=== PATIENT | male | born 1975 | race Caucasian/White ===

== ENCOUNTER 2020-04-15 10:46 | Emergency (ER) | payer OTHER, SELFPAY ==
[2020-04-15 10:58] VITALS: BP 140/82; PULSE 112; RESP 17; TEMP 36.6; O2SAT 98; BMI 36.2
--- NOTE | 2020-04-15 11:04 | ECG_ITS ---
Test Reason : SYNCOPE Blood Pressure : / mmHG Vent. Rate : 108 BPM Atrial Rate : 108 BPM P-R Int : 112 ms QRS Dur : 116 ms QT Int : 358 ms P-R-T Axes : 038 027 021 degrees QTc Int : 479 ms Sinus tachycardia Right bundle branch block Abnormal ECG When compared with ECG of 26-JAN-2019 09:38, No significant change was found Referred By: Liz Chavez Electronically Signed By:ALEX COOPER MD
--- NOTE | 2020-04-15 11:04 | CT_ITS ---
EXAMINATION: CT HEAD WITHOUT CONTRAST CLINICAL INFORMATION: Syncope. COMPARISON: None TECHNIQUE: Contiguous axial imaging was performed from the skull base to vertex without intravenous administration of contrast. This CT examination was performed using dose optimization techniques as appropriate, variously including the following: *Automated exposure control *Adjustment of mA and/or kV according to patient size (this includes techniques or standardized protocols for targeted exams where dose is matched to indication/reason for exam; i.e. extremities or head) *Use of iterative reconstruction technique DLP: 804 mGy-cm FINDINGS: There is no evidence of acute intracranial hemorrhage or territorial infarction. No abnormal mass effect or midline shift is seen. Cruz to white matter differentiation is well preserved. No extra-axial fluid collections are identified. The ventricles are normal in size. There is no abnormal attenuation within the brain parenchyma. The osseous structures and soft tissues are normal. There is minimal mucoperiosteal thickening right middle ethmoid sinus. Rest of paranasal sinuses and mastoid air cells are well aerated. CT/CT head/brain wo con IMPRESSION: No acute intracranial process seen. Minimal mucoperiosteal thickening right middle ethmoid sinus.
[2020-04-15 11:11] LABS: Glucose, Whole Blood 537 mg/dL (60-115)
--- NOTE | 2020-04-15 11:16 | ED.SYNCOPE ---
HPI - Syncope General Chief Complaint: Syncope Stated Complaint: back pain,fell,high sugar Time Seen by Provider: 04/15/20 11:04 Source: patient Mode of arrival: ambulatory Limitations: no limitations History of Present Illness HPI narrative: 44 y/o male with history of poorly controlled DM on insulin, SD, asthma, HTN, hemorrhoids, GERD, GI bleed who is presenting with a syncopal episode that happened this morning. He reports he was home alone when he went to get up and go from his living room to the kitchen to get his medications, he passed out. He was dizzy before. Unwitnessed and not sure if he hit his head. He reports when he woke up he took his medications and took a hot shower. He checked his sugar and it was >500. He reports not eating anything today. He admits to nausea but no vomiting. No chest pain or SOB. No headache. He reports LBP for the last 3 days after shoveling snow. MD complaint: loss of consciousness Onset (ago): hour(s) (2) Prodromal symptoms: lightheaded Witnessed: No Injuries sustained associated with event: none Current symptoms: back to baseline Treatments prior to arrival: none Related Data Previous Rx's Medication Instructions Recorded cyclobenzaprine 10 mg PO TID PRN #8 tab 04/15/20 lidocaine [Lidoderm] 1 patch TOPICAL DAILY #15 ea 04/15/20 Allergies Allergy/AdvReac Type Severity Reaction Status Date / Time morphine [MORPHINE] Allergy Unknown CHEST PAIN Unverified 01/11/20 16:57 Review of Systems Review of Systems: Constitutional: No Fever, No Chills ENT/Mouth: No sore throat, No Rhinorrhea, No Swallowing Difficulty Eyes: No Eye Pain, No Swelling, No Redness Cardiovascular: No Chest Pain, No SOB, No Orthopnea, No Edema Respiratory: No Cough, No Sputum, No Wheezing, No dyspnea Gastrointestinal: + Nausea, No Vomiting, No Diarrhea, No abdominal Pain Genitourinary: No Dysuria, No Urinary Frequency, No Hematuria Musculoskeletal: No joint pain, + Myalgias (low back) Skin: No Skin Lesions, No rash Neuro: No Weakness, No Numbness, + Dizziness, No Headache Psych: No Anxiety/Panic, No Depression Heme/Lymph: No Bruising, No Lymphadenopathy Endocrine: No Polyuria, No Polydipsia PMFSH Past Medical History Attestation statement: The following information was validated with the patient. Medical History HTN (hypertension) IDDM (insulin dependent diabetes mellitus) Social History Social History Alcohol intake: current Alcohol intake frequency: holidays/special occasions only Smoking Status: Current some day smoker Smoked in Last 30 Days: Yes Use of substances other than those prescribed or required for medical reasons: No Advance Directives: No Advance Directives Information Provided: No Physical Exam Vital Signs: Vital Signs: Last Vital Signs Temp 98 F 04/15/20 10:58 Pulse 77 04/15/20 13:55 Resp 16 04/15/20 12:00 BP 111/46 L 04/15/20 13:55 Pulse Ox 96 04/15/20 12:00 Body Mass Index 36.2 Appearance: Alert. Oriented X3. No acute distress. Head: atraumatic Eyes: Pupils equal, round and reactive to light. ENT: Pharynx normal. Neck: Normal inspection. Neck supple. CVS: Normal heart rate and rhythm. Pulses normal. Respiratory: No respiratory distress. Breath sounds normal. Abdomen: Obese, Soft and nontender. +BS x4 Back: mid lumbar soft tissue tenderness, no spinal tenderness, slow to move out of bed. Skin: Skin warm and dry. Normal skin color. Normal skin turgor. No rashes. Extremities: No lower extremity edema. Negative Jo's sign Neuro: Oriented X 3. No motor deficit. No sensory deficit. Course Course Course Narrative: 44 y/o male with poorly controlled DM presenting with hyperglycemia and syncopal event this morning. Now back to baseline and reports only complaint is sore back from shoveling. Exam consistent with muscular pain. Need to r/o DKA. IVF ordered and full lab workup. Etiology of hyperglycemia likely diet related but will f/u occult infection. Reevaluation(s) Reevaluation #1: No signs of infection. Utox +cocaine. A1c 12.3% with average glucose 306. Orthostatics negative. Results d/w patient. Continues to report LBP and is asking for something stronger for pain. His daughter will pick him up. Will give dose of Toradol and Flexeril now. Repeat glucose pending. Reevaluation #2: Repeat glucose after 2L IVF improved to 260. He is stable for d/c. Will refer to Endocrinology. Patient agrees to follow up. MDM - Syncope Differential Diagnosis Differential diagnosis: Likely syncope due to orthostatic hypotension, vasovagal syncope, complete atrioventricular block and dehydration Lab Data Result diagrams: 04/15/20 11:50 04/15/20 11:50 Labs: Lab Results 04/15/20 04/15/20 04/15/20 Range/Units 11:08 11:50 11:50 WBC 9.9 (4.8-10.8) X10*3/uL RBC 6.20 H (4.60-5.80) X10*6/uL Hgb 15.7 (14.0-18.0) g/dl Hct 47.9 (42-52) % MCV 77.3 L (80-98) fL MCH 25.3 L (27.0-33.0) pg MCHC 32.8 (31.0-36.0) g/dl RDW 13.5 (11.0-16.0) % Plt Count 283 (160-400) X10*3/uL MPV 11.9 (9.4-12.4) fL Immature Gran % (Auto) 0.5 H (0.0-0.4) % Neut % (Auto) 68.8 (45-73) % Lymph % (Auto) 20.8 (20-40) % [place] % (Auto) 6.4 (2-11) % Eos % (Auto) 3.1 (0-4) % Baso % (Auto) 0.4 (0-2) % Lymph # (Auto) 2.1 (1.2-4.9) X10*3/uL [place] # (Auto) 0.6 (0.1-1.2) X10*3/uL Eos # (Auto) 0.3 (0.0-0.4) X10*3/uL Baso # (Auto) 0.0 (0.0-0.2) X10*3/uL Abs Immat Gran (auto) 0.05 H (0.00-0.03) X10*3/uL Absolute Neuts (auto) 6.8 (2.0-8.3) X10*3/uL Absolute Nucleated RBC 0.000 (0.0-0.012) X10*3/uL Nucleated RBC % (auto) 0.0 (0.0-0.2) /100WBC Hold Blue Top VBG pH (7.32-7.43) VBG pCO2 mmhg VBG pO2 mmhg VBG HCO3 mmol/L VBG O2 Saturation % VBG Base Excess mmol/L Sodium 128 L (135-145) mmol/L Potassium 4.7 (3.3-5.1) mmol/l Chloride 98 (96-108) mmol/L Carbon Dioxide 21 L (22-29) mmol/L Anion Gap 14 (12-20) BUN 16 (9-16) mg/dL Creatinine 1.19 (0.5-1.4) mg/dL Estim Creat Clear Calc 101.3 Estimated GFR > 60 POC Glucose 537 H* (60-115) mg/dL Random Glucose 467 H* (60-115) mg/dL Estimat Average Glucose mg/dL Hemoglobin A1c % % Lactic Acid (0.5-2.0) mmol/L Calcium 9.1 (8.4-10.2) mg/dL Magnesium (1.6-2.6) mg/dL Total Bilirubin 0.2 (0.0-1.0) mg/dL Direct Bilirubin < 0.2 (0.0-0.5) mg/dL AST 31 (5-37) U/L ALT 70 H (0-40) U/L Alkaline Phosphatase 77 (39-117) U/L Troponin I High Sens (<3.5-35.0) ng/L Total Protein 7.3 (6.5-8.0) g/dL Albumin 4.0 (3.5-5.0) g/dL Lipase (8-78) U/L Urine Color Urine Appearance Urine pH (5.0-8.0) Ur Specific [place] (1.005-1.025) Urine Protein (NEG-TRACE) MG/DL Urine Glucose (UA) (NEG) MG/DL Urine Ketones (NEG) MG/DL Urine Blood (NEG) Urine Nitrite (NEG) Ur Leukocyte Esterase (NEG) Urine RBC (0) /HPF Urine WBC (0-4) /HPF Ur Squamous Epith Cells /LPF Urine Bacteria /LPF Urine Opiates Screen (Not Detect) Ur Barbiturates Screen (Not Detect) Ur Phencyclidine Scrn (Not Detect) Ur Amphetamines Screen (Not Detect) U Benzodiazepines Scrn (Not Detect) Urine Cocaine Screen (Not Detect) U Marijuana (THC) Screen (Not Detect) Ethyl Alcohol mg/dL Acetone, Qual Negative (Negative) COVID-19 ([facility]) (Negative) COVID-19 Clin Com 04/15/20 04/15/20 04/15/20 Range/Units 11:50 11:50 11:50 WBC (4.8-10.8) X10*3/uL RBC (4.60-5.80) X10*6/uL Hgb (14.0-18.0) g/dl Hct (42-52) % MCV (80-98) fL MCH (27.0-33.0) pg MCHC (31.0-36.0) g/dl RDW (11.0-16.0) % Plt Count (160-400) X10*3/uL MPV (9.4-12.4) fL Immature Gran % (Auto) (0.0-0.4) % Neut % (Auto) (45-73) % Lymph % (Auto) (20-40) % [place] % (Auto) (2-11) % Eos % (Auto) (0-4) % Baso % (Auto) (0-2) % Lymph # (Auto) (1.2-4.9) X10*3/uL [place] # (Auto) (0.1-1.2) X10*3/uL Eos # (Auto) (0.0-0.4) X10*3/uL Baso # (Auto) (0.0-0.2) X10*3/uL Abs Immat Gran (auto) (0.00-0.03) X10*3/uL Absolute Neuts (auto) (2.0-8.3) X10*3/uL Absolute Nucleated RBC (0.0-0.012) X10*3/uL Nucleated RBC % (auto) (0.0-0.2) /100WBC Hold Blue Top SEE NOTE VBG pH (7.32-7.43) VBG pCO2 mmhg VBG pO2 mmhg VBG HCO3 mmol/L VBG O2 Saturation % VBG Base Excess mmol/L Sodium (135-145) mmol/L Potassium (3.3-5.1) mmol/l Chloride (96-108) mmol/L Carbon Dioxide (22-29) mmol/L Anion Gap (12-20) BUN (9-16) mg/dL Creatinine (0.5-1.4) mg/dL Estim Creat Clear Calc Estimated GFR POC Glucose (60-115) mg/dL Random Glucose (60-115) mg/dL Estimat Average Glucose mg/dL Hemoglobin A1c % % Lactic Acid (0.5-2.0) mmol/L Calcium (8.4-10.2) mg/dL Magnesium (1.6-2.6) mg/dL Total Bilirubin (0.0-1.0) mg/dL Direct Bilirubin (0.0-0.5) mg/dL AST (5-37) U/L ALT (0-40) U/L Alkaline Phosphatase (39-117) U/L Troponin I High Sens < 3.5 (<3.5-35.0) ng/L Total Protein (6.5-8.0) g/dL Albumin (3.5-5.0) g/dL Lipase (8-78) U/L Urine Color Urine Appearance Urine pH (5.0-8.0) Ur Specific [place] (1.005-1.025) Urine Protein (NEG-TRACE) MG/DL Urine Glucose (UA) (NEG) MG/DL Urine Ketones (NEG) MG/DL Urine Blood (NEG) Urine Nitrite (NEG) Ur Leukocyte Esterase (NEG) Urine RBC (0) /HPF Urine WBC (0-4) /HPF Ur Squamous Epith Cells /LPF Urine Bacteria /LPF Urine Opiates Screen (Not Detect) Ur Barbiturates Screen (Not Detect) Ur Phencyclidine Scrn (Not Detect) Ur Amphetamines Screen (Not Detect) U Benzodiazepines Scrn (Not Detect) Urine Cocaine Screen (Not Detect) U Marijuana (THC) Screen (Not Detect) Ethyl Alcohol < 10 mg/dL Acetone, Qual (Negative) COVID-19 ([facility]) (Negative) COVID-19 Clin Com 04/15/20 04/15/20 04/15/20 Range/Units 11:50 11:51 11:51 WBC (4.8-10.8) X10*3/uL RBC (4.60-5.80) X10*6/uL Hgb (14.0-18.0) g/dl Hct (42-52) % MCV (80-98) fL MCH (27.0-33.0) pg MCHC (31.0-36.0) g/dl RDW (11.0-16.0) % Plt Count (160-400) X10*3/uL MPV (9.4-12.4) fL Immature Gran % (Auto) (0.0-0.4) % Neut % (Auto) (45-73) % Lymph % (Auto) (20-40) % [place] % (Auto) (2-11) % Eos % (Auto) (0-4) % Baso % (Auto) (0-2) % Lymph # (Auto) (1.2-4.9) X10*3/uL [place] # (Auto) (0.1-1.2) X10*3/uL Eos # (Auto) (0.0-0.4) X10*3/uL Baso # (Auto) (0.0-0.2) X10*3/uL Abs Immat Gran (auto) (0.00-0.03) X10*3/uL Absolute Neuts (auto) (2.0-8.3) X10*3/uL Absolute Nucleated RBC (0.0-0.012) X10*3/uL Nucleated RBC % (auto) (0.0-0.2) /100WBC Hold Blue Top VBG pH 7.41 (7.32-7.43) VBG pCO2 30 mmhg VBG pO2 97 mmhg VBG HCO3 19 mmol/L VBG O2 Saturation 97.8 % VBG Base Excess -4.6 mmol/L Sodium (135-145) mmol/L Potassium (3.3-5.1) mmol/l Chloride (96-108) mmol/L Carbon Dioxide (22-29) mmol/L Anion Gap (12-20) BUN (9-16) mg/dL Creatinine (0.5-1.4) mg/dL Estim Creat Clear Calc Estimated GFR POC Glucose (60-115) mg/dL Random Glucose (60-115) mg/dL Estimat Average Glucose 306 mg/dL Hemoglobin A1c % 12.3 % Lactic Acid 1.8 (0.5-2.0) mmol/L Calcium (8.4-10.2) mg/dL Magnesium (1.6-2.6) mg/dL Total Bilirubin (0.0-1.0) mg/dL Direct Bilirubin (0.0-0.5) mg/dL AST (5-37) U/L ALT (0-40) U/L Alkaline Phosphatase (39-117) U/L Troponin I High Sens (<3.5-35.0) ng/L Total Protein (6.5-8.0) g/dL Albumin (3.5-5.0) g/dL Lipase (8-78) U/L Urine Color Urine Appearance Urine pH (5.0-8.0) Ur Specific [place] (1.005-1.025) Urine Protein (NEG-TRACE) MG/DL Urine Glucose (UA) (NEG) MG/DL Urine Ketones (NEG) MG/DL Urine Blood (NEG) Urine Nitrite (NEG) Ur Leukocyte Esterase (NEG) Urine RBC (0) /HPF Urine WBC (0-4) /HPF Ur Squamous Epith Cells /LPF Urine Bacteria /LPF Urine Opiates Screen (Not Detect) Ur Barbiturates Screen (Not Detect) Ur Phencyclidine Scrn (Not Detect) Ur Amphetamines Screen (Not Detect) U Benzodiazepines Scrn (Not Detect) Urine Cocaine Screen (Not Detect) U Marijuana (THC) Screen (Not Detect) Ethyl Alcohol mg/dL Acetone, Qual (Negative) COVID-19 ([facility]) (Negative) COVID-19 Clin Com 04/15/20 04/15/20 04/15/20 Range/Units 11:51 11:52 11:52 WBC (4.8-10.8) X10*3/uL RBC (4.60-5.80) X10*6/uL Hgb (14.0-18.0) g/dl Hct (42-52) % MCV (80-98) fL MCH (27.0-33.0) pg MCHC (31.0-36.0) g/dl RDW (11.0-16.0) % Plt Count (160-400) X10*3/uL MPV (9.4-12.4) fL Immature Gran % (Auto) (0.0-0.4) % Neut % (Auto) (45-73) % Lymph % (Auto) (20-40) % [place] % (Auto) (2-11) % Eos % (Auto) (0-4) % Baso % (Auto) (0-2) % Lymph # (Auto) (1.2-4.9) X10*3/uL [place] # (Auto) (0.1-1.2) X10*3/uL Eos # (Auto) (0.0-0.4) X10*3/uL Baso # (Auto) (0.0-0.2) X10*3/uL Abs Immat Gran (auto) (0.00-0.03) X10*3/uL Absolute Neuts (auto) (2.0-8.3) X10*3/uL Absolute Nucleated RBC (0.0-0.012) X10*3/uL Nucleated RBC % (auto) (0.0-0.2) /100WBC Hold Blue Top VBG pH (7.32-7.43) VBG pCO2 mmhg VBG pO2 mmhg VBG HCO3 mmol/L VBG O2 Saturation % VBG Base Excess mmol/L Sodium (135-145) mmol/L Potassium (3.3-5.1) mmol/l Chloride (96-108) mmol/L Carbon Dioxide (22-29) mmol/L Anion Gap (12-20) BUN (9-16) mg/dL Creatinine (0.5-1.4) mg/dL Estim Creat Clear Calc Estimated GFR POC Glucose (60-115) mg/dL Random Glucose (60-115) mg/dL Estimat Average Glucose mg/dL Hemoglobin A1c % % Lactic Acid (0.5-2.0) mmol/L Calcium (8.4-10.2) mg/dL Magnesium 2.1 (1.6-2.6) mg/dL Total Bilirubin (0.0-1.0) mg/dL Direct Bilirubin (0.0-0.5) mg/dL AST (5-37) U/L ALT (0-40) U/L Alkaline Phosphatase (39-117) U/L Troponin I High Sens (<3.5-35.0) ng/L Total Protein (6.5-8.0) g/dL Albumin (3.5-5.0) g/dL Lipase 83 H (8-78) U/L Urine Color YELLOW Urine Appearance CLEAR Urine pH 6.0 (5.0-8.0) Ur Specific [place] <= 1.005 (1.005-1.025) Urine Protein NEG (NEG-TRACE) MG/DL Urine Glucose (UA) >=1000 H (NEG) MG/DL Urine Ketones NEG (NEG) MG/DL Urine Blood NEG (NEG) Urine Nitrite NEG (NEG) Ur Leukocyte Esterase NEG (NEG) Urine RBC 0 (0) /HPF Urine WBC 0 (0-4) /HPF Ur Squamous Epith Cells NONE /LPF Urine Bacteria NONE /LPF Urine Opiates Screen (Not Detect) Ur Barbiturates Screen (Not Detect) Ur Phencyclidine Scrn (Not Detect) Ur Amphetamines Screen (Not Detect) U Benzodiazepines Scrn (Not Detect) Urine Cocaine Screen (Not Detect) U Marijuana (THC) Screen (Not Detect) Ethyl Alcohol mg/dL Acetone, Qual (Negative) COVID-19 ([facility]) Negative (Negative) COVID-19 Clin Com See Note 04/15/20 Range/Units 11:52 WBC (4.8-10.8) X10*3/uL RBC (4.60-5.80) X10*6/uL Hgb (14.0-18.0) g/dl Hct (42-52) % MCV (80-98) fL MCH (27.0-33.0) pg MCHC (31.0-36.0) g/dl RDW (11.0-16.0) % Plt Count (160-400) X10*3/uL MPV (9.4-12.4) fL Immature Gran % (Auto) (0.0-0.4) % Neut % (Auto) (45-73) % Lymph % (Auto) (20-40) % [place] % (Auto) (2-11) % Eos % (Auto) (0-4) % Baso % (Auto) (0-2) % Lymph # (Auto) (1.2-4.9) X10*3/uL [place] # (Auto) (0.1-1.2) X10*3/uL Eos # (Auto) (0.0-0.4) X10*3/uL Baso # (Auto) (0.0-0.2) X10*3/uL Abs Immat Gran (auto) (0.00-0.03) X10*3/uL Absolute Neuts (auto) (2.0-8.3) X10*3/uL Absolute Nucleated RBC (0.0-0.012) X10*3/uL Nucleated RBC % (auto) (0.0-0.2) /100WBC Hold Blue Top VBG pH (7.32-7.43) VBG pCO2 mmhg VBG pO2 mmhg VBG HCO3 mmol/L VBG O2 Saturation % VBG Base Excess mmol/L Sodium (135-145) mmol/L Potassium (3.3-5.1) mmol/l Chloride (96-108) mmol/L Carbon Dioxide (22-29) mmol/L Anion Gap (12-20) BUN (9-16) mg/dL Creatinine (0.5-1.4) mg/dL Estim Creat Clear Calc Estimated GFR POC Glucose (60-115) mg/dL Random Glucose (60-115) mg/dL Estimat Average Glucose mg/dL Hemoglobin A1c % % Lactic Acid (0.5-2.0) mmol/L Calcium (8.4-10.2) mg/dL Magnesium (1.6-2.6) mg/dL Total Bilirubin (0.0-1.0) mg/dL Direct Bilirubin (0.0-0.5) mg/dL AST (5-37) U/L ALT (0-40) U/L Alkaline Phosphatase (39-117) U/L Troponin I High Sens (<3.5-35.0) ng/L Total Protein (6.5-8.0) g/dL Albumin (3.5-5.0) g/dL Lipase (8-78) U/L Urine Color Urine Appearance Urine pH (5.0-8.0) Ur Specific [place] (1.005-1.025) Urine Protein (NEG-TRACE) MG/DL Urine Glucose (UA) (NEG) MG/DL Urine Ketones (NEG) MG/DL Urine Blood (NEG) Urine Nitrite (NEG) Ur Leukocyte Esterase (NEG) Urine RBC (0) /HPF Urine WBC (0-4) /HPF Ur Squamous Epith Cells /LPF Urine Bacteria /LPF Urine Opiates Screen Not Detected (Not Detect) Ur Barbiturates Screen Not Detected (Not Detect) Ur Phencyclidine Scrn Not Detected (Not Detect) Ur Amphetamines Screen Not Detected (Not Detect) U Benzodiazepines Scrn Not Detected (Not Detect) Urine Cocaine Screen POSITIVE H (Not Detect) U Marijuana (THC) Screen Not Detected (Not Detect) Ethyl Alcohol mg/dL Acetone, Qual (Negative) COVID-19 ([facility]) (Negative) COVID-19 Clin Com ECG Data Attestation: I personally reviewed and interpreted this ECG as follows: ECG interpretation date: 04/15/20 ECG interpretation time: 11:26 Interpretation: sinus tachycardia, HR 108, RBBB. Unchanged compared to Jan 2019. Critical Care Time Critical Care Time Critical Care Time: No Discharge Plan Discharge Clinical Impression: Chronic hyperglycemia, Poorly controlled diabetes mellitus, Cocaine use Acute lumbar myofascial strain Qualifiers: Encounter type: initial encounter Qualified Code(s): S39.012A - Strain of muscle, fascia and tendon of lower back, initial encounter Syncope Qualifiers: Syncope type: vasovagal syncope Qualified Code(s): R55 - Syncope and collapse Patient Disposition: Home, Self-Care Instructions: Syncope (ED), Diabetes and Nutrition (ED) Additional Instructions: Your glucose today was found to be >500. Your hemoglobin A1c is also very elevated at 12.3%. This shows that your baseline glucose is around 300. You need to follow up with your doctor CHADWICK for further management and adjustment of medications. Recommend follow up the [facility] as well. It is important that you adhere to a diabetic diet - count your carbs and avoid sugars. Stay hydrated, drink plenty of water. If you develop recurrent dizziness or have another episode of passing out, come back to the ER for further evaluation. Take Motrin and/or Tylenol as needed for low back pain. Take the prescribed muscle relaxer as needed for the pain. Use ice and/or heat to the area. Limit bending, lifting >10 lbs and twisting movements. Prescriptions: New cyclobenzaprine 10 mg tablet 10 mg PO TID PRN (Reason: muscle spasm) Qty: 8 RF: 0 lidocaine [Lidoderm] 5 % adhesive patch,medicated 1 patch topical DAILY Qty: 15 RF: 0 Referrals: Ruth Fatima, RD, LDN [Registered Dietitian] - 2 days [place] MD [Physician] - 2 days (poorly controlled DM with A1c 12.3%) Stand Alone Forms: Work/School Release
[2020-04-15] MEDS: 0.9 % Sodium Chloride 1,000 ML 999 ML IVCONT ×2 (11:30→12:49)
[2020-04-15 11:31] VITALS: PULSE 106; O2SAT 100
[2020-04-15 12:00] VITALS: BP 107/79; PULSE 75; RESP 16; O2SAT 96
[2020-04-15 12:04] LABS: MANUAL DIFF FLAG NO
[2020-04-15 12:10] LABS: Base Excess VBG -4.6 mmol/L; HCO3 VBG 19 mmol/L; Oxygen Saturation VBG 97.8 %; PCO2 VBG 30 mmhg; PO2 VBG 97 mmhg; pH VBG 7.41 (7.32-7.43)
[2020-04-15 12:12] LABS: Basophils Percent Auto 0.4 % (0-2); Eosinophils Absolute Auto 0.3 X10*3/uL (0.0-0.4); Eosinophils Percent Auto 3.1 % (0-4); Hematocrit 47.9 % (42-52); Hemoglobin 15.7 g/dl (14.0-18.0); Imm Gran Abs Auto 0.05 X10*3/uL (0.00-0.03); Imm Gran Pct Auto 0.5 % (0.0-0.4); Lymphocytes Absolute Auto 2.1 X10*3/uL (1.2-4.9); Lymphocytes Percent Auto 20.8 % (20-40); Mean Corpuscular HGB Conc 32.8 g/dl (31.0-36.0); Mean Corpuscular Hemoglobin 25.3 pg (27.0-33.0); Mean Corpuscular Volume 77.3 fL (80-98); Mean Platelet Volume 11.9 fL (9.4-12.4); Monocytes Absolute Auto 0.6 X10*3/uL (0.1-1.2); Monocytes Percent Auto 6.4 % (2-11); Neutrophils Absolute Auto 6.8 X10*3/uL (2.0-8.3); Neutrophils Percent Auto 68.8 % (45-73); Platelet Count 283 X10*3/uL (160-400); Red Cell Distribution Width 13.5 % (11.0-16.0); White Blood Count 9.9 X10*3/uL (4.8-10.8)
[2020-04-15] MEDS: Acetaminophen 325 MG TABLET 975 MG PO (12:18)
[2020-04-15] MEDS: Lidocaine 4 % Patch ADH..PATCH 2 PATCH TRANSDERMA (12:18)
[2020-04-15 12:20] LABS: Acetone, serum QL Negative (Negative)
[2020-04-15 12:22] LABS: Lactic Acid 1.8 mmol/L (0.5-2.0)
[2020-04-15 12:22] LABS: Ethanol < 10 mg/dL
[2020-04-15 12:27] LABS: Magnesium 2.1 mg/dL (1.6-2.6)
[2020-04-15 12:27] LABS: COVID-19 Test Negative (Negative); IDNOW Serial# 9DD0AD1C
[2020-04-15 12:28] LABS: Estimated Average Glucose 306 mg/dL; Hemoglobin A1c % 12.3 %
[2020-04-15 12:28] LABS: Alanine Aminotransferase 70 U/L (0-40); Alkaline Phosphatase 77 U/L (39-117); Aspartate Amino Transferase 31 U/L (5-37); Blood Urea Nitrogen 16 mg/dL (9-16); Calcium 9.1 mg/dL (8.4-10.2); Creatinine Clr Calc Pharmacy 101.3; Estimated Glomerular Filt Rate > 60; Total Protein 7.3 g/dL (6.5-8.0)
[2020-04-15 12:32] LABS: Troponin-I High Sensitivity < 3.5 ng/L (<3.5-35.0)
[2020-04-15 12:34] LABS: Glucose Urine UA >=1000 MG/DL (NEG); Leukocyte Esterase Urine NEG (NEG); Nitrite Urine NEG (NEG); Specific Gravity - Urine <= 1.005 (1.005-1.025); Urine Blood NEG (NEG); Urine Ketones NEG (NEG); Urine Protein NEG (NEG-TRACE)
[2020-04-15 12:38] LABS: Lipase 83 U/L (8-78)
[2020-04-15 12:43] LABS: Appearance Urine CLEAR; Color Urine YELLOW
[2020-04-15 12:43] LABS: Anion Gap 14 (12-20); Bilirubin Direct < 0.2 mg/dL (0.0-0.5); Bilirubin Total 0.2 mg/dL (0.0-1.0); Carbon Dioxide 21 mmol/L (22-29); Chloride 98 mmol/L (96-108); Glucose Random 467 mg/dL (60-115); Potassium 4.7 mmol/l (3.3-5.1); Sodium 128 mmol/L (135-145)
[2020-04-15 12:48] LABS: Amphetamine Screen Urine Not Detected (Not Detect); Barbiturates, Urine Not Detected (Not Detect); Benzodiazepines Screen Urine Not Detected (Not Detect); Cannabinoid Screen Urine Not Detected (Not Detect); Cocaine Screen Urine POSITIVE (Not Detect); Opiate Screen Urine Not Detected (Not Detect); Phencyclidine Screen Urine Not Detected (Not Detect)
[2020-04-15 12:53] LABS: RBC Urine 0 /HPF (0); WBC Urine 0 /HPF (0-4)
[2020-04-15 13:53] VITALS: BP 118/73; PULSE 105
[2020-04-15 13:54] VITALS: BP 117/57; PULSE 89
[2020-04-15 13:55] VITALS: BP 111/46; PULSE 77
[2020-04-15 14:22] LABS: Glucose, Whole Blood 262 mg/dL (60-115)
[2020-04-15] MEDS: Cyclobenzaprine HCl 10 MG TABLET PO (14:31)
[2020-04-15] MEDS: Ketorolac Tromethamine 30 MG/ML VIAL IVPUSH (14:31)
== END 2020-04-15 15:00 | disposition home or self-care (01) ==
PROVIDERS: Physician Assistant; Emergency Provider Emergency Medicine; PCP Internal Medicine
DX: E11.65 Type 2 diabetes mellitus with hyperglycemia (principal); R55 Syncope and collapse; Z20.828 Contact with and (suspected) exposure to other viral communicable diseases; S39.012A Strain of muscle, fascia and tendon of lower back, initial encounter; X50.0XXA Overexertion from strenuous movement or load, initial encounter; F14.90 Cocaine use, unspecified, uncomplicated; Y93.H1 Activity, digging, shoveling and raking; Y92.017 Garden or yard in single-family (private) house as the place of occurrence of the external cause; Y99.9 Unspecified external cause status; Z79.4 Long term (current) use of insulin
CPT/HCPCS: 36415; 70450; 80048; 80076; 80307; 80320; 81001; 82009; 82803; 82947; 83036; 83605; 83690; 83735; 84484; 85025; 87040; 87635; 93005; 96361; 96374; 99284; 99285; J1885

== ENCOUNTER 2021-07-29 13:11 | Emergency (ER) | payer MEDICAID, SELFPAY ==
[2021-07-29 13:57] VITALS: BP 151/91; PULSE 90; RESP 18; TEMP 36.9; O2SAT 98; BMI 34.1
--- NOTE | 2021-07-29 14:06 | PC.NURSE ---
RN aware POC [id number]
[2021-07-29 14:15] LABS: MANUAL DIFF FLAG NO
[2021-07-29 14:17] LABS: Basophils Absolute Auto 0.1 X10*3/uL (0.0-0.2); Basophils Percent Auto 0.5 % (0-2); Eosinophils Absolute Auto 0.3 X10*3/uL (0.0-0.4); Eosinophils Percent Auto 3.1 % (0-4); Hematocrit 43.7 % (42.0-52.0); Hemoglobin 13.8 g/dl (14.0-18.0); Imm Gran Abs Auto 0.07 X10*3/uL (0.00-0.03); Imm Gran Pct Auto 0.7 % (0.0-0.4); Lymphocytes Absolute Auto 2.4 X10*3/uL (1.2-4.9); Lymphocytes Percent Auto 23.3 % (20-40); Mean Corpuscular HGB Conc 31.6 g/dl (31.0-36.0); Mean Corpuscular Hemoglobin 24.5 pg (27.0-33.0); Mean Corpuscular Volume 77.5 fL (80.0-98.0); Mean Platelet Volume 11.6 fL (9.4-12.4); Monocytes Absolute Auto 0.6 X10*3/uL (0.1-1.2); Monocytes Percent Auto 5.9 % (2-11); Neutrophils Percent Auto 66.5 % (45-73); Platelet Count 296 X10*3/uL (160-400); Red Blood Count 5.64 X10*6/uL (4.60-5.80); Red Cell Distribution Width 14.1 % (11.0-16.0); White Blood Count 10.5 X10*3/uL (4.8-10.8)
[2021-07-29 14:18] LABS: Glucose, Whole Blood 552 mg/dL (60-115)
[2021-07-29 14:22] LABS: Appearance Urine CLEAR; Color Urine STRAW; Glucose Urine UA >=1000 MG/DL (NEG); Leukocyte Esterase Urine NEG (NEG); Nitrite Urine NEG (NEG); PH 6.5 (5.0-8.0); Urine Blood NEG (NEG); Urine Ketones NEG (NEG); Urine Protein NEG (NEG-TRACE)
[2021-07-29 14:24] LABS: Acetone, serum QL Negative (Negative)
[2021-07-29 14:42] LABS: Alanine Aminotransferase 26 U/L (0-40); Albumin Level 3.8 g/dL (3.5-5.0); Alkaline Phosphatase 79 U/L (39-117); Anion Gap 11 (12-20); Aspartate Amino Transferase 16 U/L (5-37); Bilirubin Total 0.2 mg/dL (0.0-1.0); Blood Urea Nitrogen 11 mg/dL (9-16); Calcium 9.4 mg/dL (8.4-10.2); Carbon Dioxide 26 mmol/L (22-29); Chloride 97 mmol/L (96-108); Creatinine Clr Calc Pharmacy 92.3; Estimated Glomerular Filt Rate > 60; Glucose Random 552 mg/dL (60-115); Potassium 4.2 mmol/L (3.3-5.1); Sodium 130 mmol/L (135-145); Total Protein 7.1 g/dL (6.5-8.0)
[2021-07-29 14:43] LABS: RBC Urine 0 /HPF (0); WBC Urine 0-2 /HPF (0-4)
== END 2021-07-29 16:32 | disposition left against medical advice (07) ==
LOC: HO.ED 16:42
PROVIDERS: Emergency Provider Emergency Medicine; PCP Internal Medicine
DX: R42 Dizziness and giddiness (principal); E11.65 Type 2 diabetes mellitus with hyperglycemia
CPT/HCPCS: 36415; 80053; 81001; 82009; 82947; 85025; 99281; 99283

== ENCOUNTER 2021-09-15 09:44 | Emergency (ER) | payer MEDICAID, SELFPAY ==
--- NOTE | ~2021-09-15 | XR_ITS ---
EXAMINATION: XR KNEE, LEFT CLINICAL INFORMATION: Injury. COMPARISON: None TECHNIQUE: Four views of the left knee. FINDINGS: There is no acute fracture, dislocation or subluxation. No abnormal joint effusion seen. There a enthesophytes along the anterior patella. No loose bodies or bony erosive changes seen. There is dense sclerotic line along the proximal tibia with mild heterogeneity likely from old intervention or healed fracture. The soft tissues are normal. XR/XR knee LT 3V IMPRESSION: No acute fracture, dislocation or subluxation seen. Anterior patellar and anterior tibial eminence enthesophytes.
[2021-09-15 10:12] VITALS: BP 119/73; PULSE 102; RESP 18; TEMP 37; O2SAT 97; BMI 34.5
[2021-09-15 12:46] VITALS: BP 133/82; PULSE 85; RESP 18; O2SAT 98
--- NOTE | 2021-09-15 12:51 | ED.LOWEXIN ---
HPI - Extremity Injury (Lower) General Chief Complaint: Extremity Injury, Lower Stated Complaint: l knee inj, fall at home Time Seen by Provider: 09/15/21 10:49 History of Present Illness HPI Narrative: Patient complains of pain in the left knee after falling several days ago, no other injury Related Data Previous Rx's Medication Instructions Recorded cyclobenzaprine 10 mg tablet 10 mg PO TID PRN #8 tab 04/15/20 lidocaine 5 % topical patch 1 patch TOPICAL DAILY #15 ea 04/15/20 (Lidoderm) cephalexin 500 mg tablet 500 mg PO QID 7 Days #28 tab 09/15/21 Allergies Allergy/AdvReac Type Severity Reaction Status Date / Time morphine [MORPHINE] Allergy Unknown CHEST PAIN Verified 07/29/21 13:56 Review of Systems Review of Systems: Positive for left knee pain Negatives are no fever no chills no dizziness no weakness no headache no neck pain no back pain no numbness weakness or tingling Yes all other systems are reviewed and are negative PMFSH Past Medical History Source: nursing notes reviewed Medical History HTN (hypertension) IDDM (insulin dependent diabetes mellitus) Social History Social History Alcohol intake: current Alcohol intake frequency: holidays/special occasions only Advance Directives: No Advance Directives Information Provided: No Physical Exam Vital Signs: Vital Signs: Last Vital Signs Temp 98.6 F 09/15/21 10:12 Pulse 85 09/15/21 12:46 Resp 18 09/15/21 12:46 BP 133/82 09/15/21 12:46 Pulse Ox 98 09/15/21 12:46 BMI result Body Mass Index 34.5 General appearance comfortable no distress Head is normocephalic atraumatic Neck is supple nontender Respiratory no distress The back full range of motion Extremities the left knee has some mild redness bruising and some warmth in the medial aspect of the knee, there is no obvious effusion, the leg extends fully and flexes past 90 degrees, no swelling, skin is intact There is no calf tenderness or swelling Other extremities normal Neuro no focal motor sensory deficits The gait he has a mild limp but ambulates easily without assistance Course Course Course Narrative: Left knee x-ray showed mild arthritis no other findings The exam is consistent with bruising of the left medial knee versus a possible early cellulitis so the patient is treated with antibiotics for the bruised red warm small area on the medial left knee There is no sign of joint infection no effusion good range of motion and no significant pain with ambulation Discharge Plan Discharge Clinical Impression: Left knee sprain, Cellulitis Patient Disposition: Home, Self-Care Additional Instructions: X-ray did not show anything except mild arthritis Follow with orthopedist for the knee pain As there was some redness and warmth in the bruised area on your knee we are treating with antibiotic for possible skin infection Return any time for spreading redness, worse pain and swelling, fever, any worse condition or any concerns Prescriptions: New cephalexin 500 mg tablet 500 mg PO QID 7 Days Qty: 28 0RF No Action cyclobenzaprine 10 mg tablet 10 mg PO TID PRN (Reason: muscle spasm) Qty: 8 0RF lidocaine [Lidoderm] 5 % adhesive patch,medicated 1 patch topical DAILY Qty: 15 0RF Rx Instructions: leave on most painful area for up to 12 hrs Referrals: Ronn Ferrell MD [Physician] - (Left knee sprain) Stand Alone Forms: Work/School Release
== END 2021-09-15 13:03 | disposition home or self-care (01) ==
PROVIDERS: Emergency Provider Emergency Medicine; PCP Internal Medicine
DX: S83.92XA Sprain of unspecified site of left knee, initial encounter (principal); L03.116 Cellulitis of left lower limb; E11.9 Type 2 diabetes mellitus without complications; I10 Essential (primary) hypertension; W19.XXXA Unspecified fall, initial encounter; Y93.9 Activity, unspecified; Y92.9 Unspecified place or not applicable; Y99.9 Unspecified external cause status
CPT/HCPCS: 73562; 99281; 99283

== ENCOUNTER 2022-05-28 07:12 | Emergency (ER) | payer MEDICAID, SELFPAY ==
[2022-05-28 07:44] VITALS: BP 154/93; PULSE 84; RESP 18; TEMP 36.1; O2SAT 97; BMI 33.7
[2022-05-28 10:36] VITALS: BP 129/73; PULSE 73; RESP 16; TEMP 36.6; O2SAT 98
--- NOTE | 2022-05-28 10:52 | ED.GENADULT ---
HPI - General Adult General Chief complaint: General Medical <ERWIN Mayen - Last Filed: 05/28/22 17:08> Stated complaint: took too much blood pressure medicine <ERWIN Mayen - Last Filed: 05/28/22 17:08> Time Seen by Provider: 05/28/22 10:47 <ERWIN Mayen Last Filed: 05/28/22 17:08> Source: patient <ERWIN Mayen Last Filed: 05/28/22 17:08> Mode of arrival: ambulatory <ERWIN Mayen Last Filed: 05/28/22 17:08> Limitations: no limitations <ERWIN Mayen Last Filed: 05/28/22 17:08> History of Present Illness HPI narrative: Patient is a 46 year old assigned male at with a history of HTN and DM presenting to the emergency department today after accidentally taking an additional dose of his Losartan. Patient states that his Losartan looks a lot like another one of his medication and this morning he accidentally took 2 doses of it. Patient denies any dizziness, lightheadedness, abdominal pain, nausea, vomiting, fever, chills, blurry vision, double vision, loss of vision, chest pain, difficulty breathing, shortness of breath, back pain, night sweats, pain with urination, increased urinary frequency, increased urinary urgency, blood in his urine or stool, syncope or a near syncopal episode, recent trauma or falls, bowel incontinence, bladder incontinence, bowel retention, bladder retention, or any other complaints at this time. <ERWIN Mayen Last Filed: 05/28/22 17:08> Onset (ago): minute(s) <ERWIN Mayen - Last Filed: 05/28/22 17:08> Severity: mild <ERWIN Mayen Last Filed: 05/28/22 17:08> Severity scale (1-10): 3 <ERWIN Mayen Last Filed: 05/28/22 17:08> Relieving factors: none <ERWIN Mayen Last Filed: 05/28/22 17:08> Exacerbating factors: none <ERWIN Mayen Last Filed: 05/28/22 17:08> Associated symptoms: denies other symptoms <ERWIN Mayen Last Filed: 05/28/22 17:08> Treatments prior to arrival: none <ERWIN Mayen Last Filed: 05/28/22 17:08> Related Data Home medications: Previous Rx's Medication Instructions Recorded cyclobenzaprine 10 mg tablet 10 mg PO TID PRN muscle spasm #8 04/15/20 tabs lidocaine 5 % topical patch 1 patch topical DAILY #15 ea 04/15/20 (Lidoderm) cephalexin 500 mg tablet 500 mg PO QID 7 days #28 tabs 09/15/21 <ERWIN Mayen Last Filed: 05/28/22 17:08> Allergies/adverse reactions: Allergies Allergy/AdvReac Type Severity Reaction Status Date / Time morphine [MORPHINE] Allergy Unknown CHEST PAIN Verified 07/29/21 13:56 <ERWIN Mayen Last Filed: 05/28/22 17:08> Review of Systems Constitutional: Constitutional: Reports no additional constitutional complaints, Denies chills, Denies fever(s) and Denies night sweats <ERWIN Mayen Last Filed: 05/28/22 17:08> Eyes: Eyes: Reports no additional eye complaints, Denies blurry vision, Denies change in vision, Denies diplopia, Denies eye discharge, Denies loss of vision and Denies eye pain <ERWIN Mayen Last Filed: 05/28/22 17:08> ENT: Denies dizziness <ERWIN Mayen Last Filed: 05/28/22 17:08> Cardiovascular: Cardiovascular: Reports no additional cardiovascular complaints, Denies chest pain, Denies lightheadedness, Denies Loss of Consciousness and Denies dyspnea <ERWIN Mayen Last Filed: 05/28/22 17:08> Respiratory: Respiratory: Reports no additional respiratory complaints and Denies dyspnea <ERWIN Mayen Last Filed: 05/28/22 17:08> Gastrointestinal: Gastrointestinal: Reports no additional gastrointestinal complaints, Denies abdominal pain, Denies melena, Denies hematochezia, Denies change in bowel habits and Denies change in stool character <ERWIN Mayen Last Filed: 05/28/22 17:08> Genitourinary: Genitourinary: Reports no additional male genitourinary complaints, Denies hematuria, Denies oliguria, Denies difficulty urinating, Denies dysuria, Denies urinary frequency, Denies urinary hesitancy, Denies urinary incontinence and Denies urinary urgency <ERWIN Mayen - Last Filed: 05/28/22 17:08> Musculoskeletal: Musculoskeletal: Reports no additional musculoskeletal complaints, Denies numbness and Denies tingling <ERWIN Mayen - Last Filed: 05/28/22 17:08> Neurologic: Denies dizziness, Denies loss of vision, Denies numbness and Denies tingling <ERWIN Mayen - Last Filed: 05/28/22 17:08> Psychiatric: Psychiatric: Reports no additional psychiatric complaints <ERWIN Mayen - Last Filed: 05/28/22 17:08> Endocrine: Endocrine: Reports no additional endocrine complaints <ERWIN Mayen - Last Filed: 05/28/22 17:08> Hematologic/Lymphatic: Hematologic/Lymphatic: Reports no additional hematologic/lymphatic complaints <ERWIN Mayen - Last Filed: 05/28/22 17:08> Allergic/Immunologic: Allergic/Immunologic: Reports no additional allergic/immunologic complaints <ERWIN Mayen - Last Filed: 05/28/22 17:08> [facility] Past Medical History Attestation statement: The following information was validated with the patient. <ERWIN Mayen - Last Filed: 05/28/22 17:08> Source: old records reviewed and nursing notes reviewed <ERWIN Mayen - Last Filed: 05/28/22 17:08> Medical History: Medical History HTN (hypertension) IDDM (insulin dependent diabetes mellitus) <ERWIN Mayen - Last Filed: 05/28/22 17:08> Social History Social History: Social History Alcohol intake: current Alcohol intake frequency: holidays/special occasions only Alcohol type: beer Smoked in Last 30 Days: Yes Use of substances other than those prescribed or required for medical reasons: No Advance Directives: No <ERWIN Mayen - Last Filed: 05/28/22 17:08> Physical Exam ED Vital Signs: Vital Signs - 24 hr 05/28/22 07:44 05/28/22 10:36 05/28/22 12:24 Temperature 97 F 97.9 F Pulse Rate 84 73 78 Respiratory Rate 18 16 18 Blood Pressure 154/93 H 129/73 117/78 Pulse Oximetry 97 98 98 Oxygen Delivery Method Room Air Room Air BMI result Body Mass Index 33.7 <ERWIN Mayen - Last Filed: 05/28/22 17:08> Vital Signs - 24 hr 05/28/22 07:44 05/28/22 10:36 05/28/22 12:24 Temperature 97 F 97.9 F Pulse Rate 84 73 78 Respiratory Rate 18 16 18 Blood Pressure 154/93 H 129/73 117/78 Pulse Oximetry 97 98 98 Oxygen Delivery Method Room Air Room Air BMI result Body Mass Index 33.7 <Cr Ferreira MD - Last Filed: 06/01/22 11:30> Const General: cooperative, no acute distress, alert and awake <ERWIN Mayen - Last Filed: 05/28/22 17:08> Nutritional Appearance: well nourished <ERWIN Mayen - Last Filed: 05/28/22 17:08> Orientation/consciousness: patient oriented x3 <ERWIN Mayen - Last Filed: 05/28/22 17:08> Limitations: no limitations <ERWIN Mayen Last Filed: 05/28/22 17:08> HENMT Head: Yes normal to inspection and Yes atraumatic <ERWIN Mayen - Last Filed: 05/28/22 17:08> Ears: hearing grossly normal bilaterally and external ears normal <ERWIN Mayen - Last Filed: 05/28/22 17:08> General nose exam: Normal external nose present, no nasal discharge noted and no epistaxis <ERWIN Mayen - Last Filed: 05/28/22 17:08> Face and sinus: Yes normal facial exam, No abrasion and No laceration <ERWIN Myaen Last Filed: 05/28/22 17:08> Mouth: Normal oral and palatal mucosa present, no drooling and no muffled voice <ERWIN Mayen - Last Filed: 05/28/22 17:08> Eyes General: appearance normal, both eyes and all related structures <Reneecassandra Henriquezrichard PA - Last Filed: 05/28/22 17:08> Periorbital: periorbital findings normal <Renee Henriquezrichard PA - Last Filed: 05/28/22 17:08> Eyelids: Yes eyelids normal <Reneecassandra Henriquezrichard PA - Last Filed: 05/28/22 17:08> Conjunctivae: conjunctivae normal <Renee Henriquezrichard PA - Last Filed: 05/28/22 17:08> Pupils: Equal, round and reactive pupils present <Reneecassandra Henriquezrichard PA - Last Filed: 05/28/22 17:08> EOM: EOMs intact bilaterally <Reneecassandra Henriquezrichard PA - Last Filed: 05/28/22 17:08> Neck Neck: Yes normal visual inspection, Yes full ROM and Yes no lymphadenopathy <Renee Germain PA - Last Filed: 05/28/22 17:08> Chest Chest palpation & inspection: normal inspection of the chest <Reneecassandra Henriquezrichard PA - Last Filed: 05/28/22 17:08> Resp Effort & Inspection: normal respiratory effort and able to speak in complete sentences <Renee Germain PA - Last Filed: 05/28/22 17:08> Auscultation: clear to auscultation bilaterally <Renee Henriquezrichard PA - Last Filed: 05/28/22 17:08> Cardio Rate: regular rate <Renee Germain PA - Last Filed: 05/28/22 17:08> Rhythm: regular rhythm <Renee Marcellus PA - Last Filed: 05/28/22 17:08> GI Inspection: Yes normal to inspection <Renee Marcellus PA - Last Filed: 05/28/22 17:08> Palpation (GI): Soft to palpation, not firm, nontender and no guarding <Renee Marcellus PA - Last Filed: 05/28/22 17:08> Neuro General: patient oriented x3 and moves all extremities <Renee Germain PA - Last Filed: 05/28/22 17:08> Cranial nerves: Yes Equal, round and reactive pupils present <Renee Germain PA - Last Filed: 05/28/22 17:08> Cognition (Neuro): normal cognition <Renee Germain PA - Last Filed: 05/28/22 17:08> Motor exam (neuro): 5/5 motor strength present throughout <Renee GermainERWIN - Last Filed: 05/28/22 17:08> Sensory Exam: Normal double simultaneous stimulation for sensation <Renee Germain PA - Last Filed: 05/28/22 17:08> Coordination: [id number] test normal <Renee Germain PA - Last Filed: 05/28/22 17:08> Extrem General: Yes normal to inspection, Yes full ROM and Yes capillary refill normal <Renee GermainERWIN - Last Filed: 05/28/22 17:08> Psych Appearance: grossly normal <Renee GermainERWIN - Last Filed: 05/28/22 17:08> Mental Status: mental status grossly normal <Renee GermainERWIN - Last Filed: 05/28/22 17:08> Affect: normal affect <Renee GermainERWIN - Last Filed: 05/28/22 17:08> Attitude: cooperative <Renee Germain PA - Last Filed: 05/28/22 17:08> Thought process: Normal thought process present <Renee GermainERWIN - Last Filed: 05/28/22 17:08> Thought content: Normal thought content present <Renee GermainERWIN - Last Filed: 05/28/22 17:08> Insight: Good insight present (Psych) <Renee GermainERWIN - Last Filed: 05/28/22 17:08> Medical Decision Making Medical Decision Making MDM Narrative: Patient is a 46 year old assigned male at with a history of HTN and DM presenting to the emergency department today after taking an additional dose of Losartan. Patient's physical exam was unremarkable. Patient's blood work showed an elevated glucose however, this is chronic for the patient. Patient's EKG was unremarkable. I explained my physical exam findings as well as all test results to the patient. I answered all questions asked by the patient. I stressed the importance of the patient taking his medication as prescribed. I stressed the importance of the patient following up with his primary care provider. I stressed the importance of the patient returning to the emergency department immediately if his symptoms were to worsen or if he were to develop any dizziness, shortness of breath, difficulty breathing, chest pain, blurry vision, loss of vision, nausea, vomiting, abdominal pain, fever, chills, back pain, or any other complaints. Patient verbalized agreement and understanding with this treatment plan and discharge. <ERWIN Mayen - Last Filed: 05/28/22 17:08> Differential Diagnosis Differential Diagnoses: The differential diagnosis associated with the presentation includes <ERWIN Mayen - Last Filed: 05/28/22 17:08> accidental medication ingestion <ERWIN Mayen - Last Filed: 05/28/22 17:08> Lab Data MDM Lab Attestation statement: I reviewed the patient's lab results. <ERWIN Mayen - Last Filed: 05/28/22 17:08> Result Diagrams: 05/28/22 11:14 05/28/22 11:14 <ERWIN Mayen - Last Filed: 05/28/22 17:08> Labs: Lab Results 05/28/22 05/28/22 Range/Units 11:14 11:14 WBC 9.5 (4.8-10.8) X10*3/uL RBC 6.31 H (4.60-5.80) X10*6/uL Hgb 15.8 (14.0-18.0) g/dl Hct 48.6 (42.0-52.0) % MCV 77.0 L (80.0-98.0) fL MCH 25.0 L (27.0-33.0) pg MCHC 32.5 (31.0-36.0) g/dl RDW 13.4 (11.0-16.0) % Plt Count 350 (160-400) X10*3/uL MPV 11.4 (9.4-12.4) fL Immature Gran % (Auto) 0.8 H (0.0-0.4) % Neut % (Auto) 69.5 (45-73) % Lymph % (Auto) 21.5 (20-40) % [place] % (Auto) 5.6 (2-11) % Eos % (Auto) 1.9 (0-4) % Baso % (Auto) 0.7 (0-2) % Lymph # (Auto) 2.0 (1.2-4.9) X10*3/uL [place] # (Auto) 0.5 (0.1-1.2) X10*3/uL Eos # (Auto) 0.2 (0.0-0.4) X10*3/uL Baso # (Auto) 0.1 (0.0-0.2) X10*3/uL Abs Immat Gran (auto) 0.08 H (0.00-0.03) X10*3/uL Absolute Neuts (auto) 6.6 (2.0-8.3) x10*3/uL Absolute Nucleated RBC 0.000 (0.0-0.012) X10*3/uL Nucleated RBC % (auto) 0.0 (0.0-0.2) /100WBC Sodium 133 L (135-145) mmol/L Potassium 4.5 (3.3-5.1) mmol/L Chloride 98 (96-108) mmol/L Carbon Dioxide 25 (22-29) mmol/L Anion Gap 15 (12-20) BUN 11 (9-16) mg/dL Creatinine 1.20 (0.5-1.4) mg/dL Estim Creat Clear Calc 92.0 Estimated GFR > 60 Random Glucose 399 H* (60-115) mg/dL Calcium 9.6 (8.4-10.2) mg/dL Magnesium 1.9 (1.6-2.6) mg/dL Total Bilirubin 0.4 (0.0-1.0) mg/dL AST 21 (5-37) U/L ALT 35 (0-40) U/L Alkaline Phosphatase 86 (39-117) U/L Total Protein 7.5 (6.5-8.0) g/dL Albumin 4.0 (3.5-5.0) g/dL <ERWIN Mayen - Last Filed: 05/28/22 17:08> Lab Results 05/28/22 05/28/22 Range/Units 11:14 11:14 WBC 9.5 (4.8-10.8) X10*3/uL RBC 6.31 H (4.60-5.80) X10*6/uL Hgb 15.8 (14.0-18.0) g/dl Hct 48.6 (42.0-52.0) % MCV 77.0 L (80.0-98.0) fL MCH 25.0 L (27.0-33.0) pg MCHC 32.5 (31.0-36.0) g/dl RDW 13.4 (11.0-16.0) % Plt Count 350 (160-400) X10*3/uL MPV 11.4 (9.4-12.4) fL Immature Gran % (Auto) 0.8 H (0.0-0.4) % Neut % (Auto) 69.5 (45-73) % Lymph % (Auto) 21.5 (20-40) % [place] % (Auto) 5.6 (2-11) % Eos % (Auto) 1.9 (0-4) % Baso % (Auto) 0.7 (0-2) % Lymph # (Auto) 2.0 (1.2-4.9) X10*3/uL [place] # (Auto) 0.5 (0.1-1.2) X10*3/uL Eos # (Auto) 0.2 (0.0-0.4) X10*3/uL Baso # (Auto) 0.1 (0.0-0.2) X10*3/uL Abs Immat Gran (auto) 0.08 H (0.00-0.03) X10*3/uL Absolute Neuts (auto) 6.6 (2.0-8.3) x10*3/uL Absolute Nucleated RBC 0.000 (0.0-0.012) X10*3/uL Nucleated RBC % (auto) 0.0 (0.0-0.2) /100WBC Sodium 133 L (135-145) mmol/L Potassium 4.5 (3.3-5.1) mmol/L Chloride 98 (96-108) mmol/L Carbon Dioxide 25 (22-29) mmol/L Anion Gap 15 (12-20) BUN 11 (9-16) mg/dL Creatinine 1.20 (0.5-1.4) mg/dL Estim Creat Clear Calc 92.0 Estimated GFR > 60 Random Glucose 399 H* (60-115) mg/dL Calcium 9.6 (8.4-10.2) mg/dL Magnesium 1.9 (1.6-2.6) mg/dL Total Bilirubin 0.4 (0.0-1.0) mg/dL AST 21 (5-37) U/L ALT 35 (0-40) U/L Alkaline Phosphatase 86 (39-117) U/L Total Protein 7.5 (6.5-8.0) g/dL Albumin 4.0 (3.5-5.0) g/dL <Cr Ferreira MD - Last Filed: 06/01/22 11:30> Independent Interpretation I performed an independent interpretation of an: EKG <ERWIN Mayen - Last Filed: 05/28/22 17:08> Interpretation: Vent. Rate: 071 BPM ? ? Atrial Rate: 071 BPM P-R Int: 112 ms? QRS Dur: 122 ms QT Int: 406 ms ? ? ? P-R-T Axes: 053 025 032 degrees QTc Int: 441 ms ? Normal sinus rhythm Right bundle branch block T wave abnormality, consider lateral ischemia Abnormal ECG When compared with ECG of 15-APR-2020 11:12, Vent. rate has decreased BY? 37 BPM T wave inversion now evident in Lateral leads DD/ [id number] <ERWIN Mayen - Last Filed: 05/28/22 17:08> Attestation Attending Attestation: I reviewed MEDICAL OFFICE SCHEDULER/PA/Resident note, assessment and plan. I agree with the documentation, assessment and plan unless otherwise stated. <Cr Ferreira MD - Last Filed: 06/01/22 11:30> Discharge Plan Discharge Clinical Impression: Accidental drug ingestion <ERWIN Mayen - Last Filed: 05/28/22 17:08> Patient Disposition: Home, Self-Care <ERWIN Mayen - Last Filed: 05/28/22 17:08> Additional Instructions: Follow up with your primary care provider. Return to the emergency department immediately if your symptoms worsen or if you develop any dizziness, shortness of breath, difficulty breathing, chest pain, blurry vision, loss of vision, nausea, vomiting, abdominal pain, fever, chills, back pain, or any other complaints. <ERWIN Mayen - Last Filed: 05/28/22 17:08> Prescriptions: No Action cyclobenzaprine 10 mg tablet 10 mg PO TID PRN (Reason: muscle spasm) Qty: 8 0RF lidocaine [Lidoderm] 5 % adhesive patch,medicated 1 patch topical DAILY Qty: 15 0RF Rx Instructions: leave on most painful area for up to 12 hrs cephalexin 500 mg tablet 500 mg PO QID 7 Days Qty: 28 0RF <ERWIN Mayen - Last Filed: 05/28/22 17:08> Referrals: Jordy Jo MD [Primary Care Provider] - <ERWIN Mayen - Last Filed: 05/28/22 17:08> Stand Alone Forms: Work/School Release <ERWIN Mayen - Last Filed: 05/28/22 17:08> Interventions: ED Discharge Assessment Last Done: 05/28/22 12:25 <ERWIN Mayen - Last Filed: 05/28/22 17:08> Discharge Date/Time: 05/28/22 12:25 <ERWIN Mayen - Last Filed: 05/28/22 17:08> Print Language: Vietnamese <ERWIN Mayen - Last Filed: 05/28/22 17:08>
--- NOTE | 2022-05-28 11:00 | ECG_ITS ---
Test Reason : dizziness Blood Pressure : / mmHG Vent. Rate : 071 BPM Atrial Rate : 071 BPM P-R Int : 112 ms QRS Dur : 122 ms QT Int : 406 ms P-R-T Axes : 053 025 032 degrees QTc Int : 441 ms Normal sinus rhythm Right bundle branch block Nonspecific T wave changes Abnormal ECG When compared with ECG of 15-APR-2020 11:12, Vent. rate has decreased BY 37 BPM Referred By: Renee Germain Electronically Signed By:Blayne Knox
[2022-05-28 11:19] LABS: MANUAL DIFF FLAG NO
[2022-05-28 11:21] LABS: Basophils Absolute Auto 0.1 X10*3/uL (0.0-0.2); Basophils Percent Auto 0.7 % (0-2); Eosinophils Absolute Auto 0.2 X10*3/uL (0.0-0.4); Eosinophils Percent Auto 1.9 % (0-4); Hematocrit 48.6 % (42.0-52.0); Hemoglobin 15.8 g/dl (14.0-18.0); Imm Gran Abs Auto 0.08 X10*3/uL (0.00-0.03); Imm Gran Pct Auto 0.8 % (0.0-0.4); Lymphocytes Percent Auto 21.5 % (20-40); Mean Corpuscular HGB Conc 32.5 g/dl (31.0-36.0); Mean Platelet Volume 11.4 fL (9.4-12.4); Monocytes Absolute Auto 0.5 X10*3/uL (0.1-1.2); Monocytes Percent Auto 5.6 % (2-11); Neutrophils Absolute Auto 6.6 x10*3/uL (2.0-8.3); Neutrophils Percent Auto 69.5 % (45-73); Platelet Count 350 X10*3/uL (160-400); Red Blood Count 6.31 X10*6/uL (4.60-5.80); Red Cell Distribution Width 13.4 % (11.0-16.0); White Blood Count 9.5 X10*3/uL (4.8-10.8)
[2022-05-28 11:49] LABS: Alanine Aminotransferase 35 U/L (0-40); Alkaline Phosphatase 86 U/L (39-117); Anion Gap 15 (12-20); Aspartate Amino Transferase 21 U/L (5-37); Bilirubin Total 0.4 mg/dL (0.0-1.0); Blood Urea Nitrogen 11 mg/dL (9-16); Calcium 9.6 mg/dL (8.4-10.2); Carbon Dioxide 25 mmol/L (22-29); Chloride 98 mmol/L (96-108); Estimated Glomerular Filt Rate > 60; Glucose Random 399 mg/dL (60-115); Magnesium 1.9 mg/dL (1.6-2.6); Potassium 4.5 mmol/L (3.3-5.1); Sodium 133 mmol/L (135-145); Total Protein 7.5 g/dL (6.5-8.0)
[2022-05-28 12:24] VITALS: BP 117/78; PULSE 78; RESP 18; O2SAT 98
== END 2022-05-28 12:25 | disposition home or self-care (01) ==
PROVIDERS: Physician Assistant Medical; Emergency Provider Emergency Medicine; PCP Internal Medicine
DX: I10 Essential (primary) hypertension (principal); T46.5X1A Poisoning by other antihypertensive drugs, accidental (unintentional), initial encounter; Y92.019 Unspecified place in single-family (private) house as the place of occurrence of the external cause; E11.9 Type 2 diabetes mellitus without complications; Z79.4 Long term (current) use of insulin
CPT/HCPCS: 36415; 80053; 83735; 85025; 93005; 99283; 99284

== ENCOUNTER 2022-11-25 12:20 | Emergency (ER) | payer MEDICAID, SELFPAY ==
--- NOTE | ~2022-11-25 | XR_ITS ---
EXAMINATION: XR CHEST CLINICAL INFORMATION: Chest pain. COMPARISON: 01/14/2020 chest radiograph. TECHNIQUE: 2 views of the chest were obtained. FINDINGS: No significant abnormality is noted involving the heart, lungs, mediastinum, bony thorax or soft tissues. XR/XR chest 2V IMPRESSION: No acute cardiopulmonary process.
[2022-11-25 13:16] VITALS: BP 164/94; PULSE 88; RESP 17; TEMP 35.7; O2SAT 95; BMI 34.3
--- NOTE | 2022-11-25 13:16 | ED_ITS ---
HPI - General Adult General Chief complaint: General Medical Stated complaint: BP Time Seen by Provider: 11/25/22 14:16 Source: patient Mode of arrival: ambulatory Limitations: no limitations History of Present Illness HPI narrative: 47-year-old male history of diabetes mellitus type 2, hypertension, high cholesterol, chronic pain who presents emergency department for evaluation of elevated blood sugars. Patient states that he is not had access to his medications for 3 days. He states that he has been urinating frequently, 13 times in our pain he states he is feeling dizzy, lightheaded and has a headache. He has blurred vision. States he has been very fatigued is been sleeping all the time. Patient believes that he can access his medications but he is not certain he is going to have his daughter checked to see if she can get his medications back. He denied fever, chills, chest pain, shortness of breath, nausea, vomiting or diarrhea. Patient is also complaining of a spotty rash on his chest and underneath his left breast. He states he did go to the beach yesterday and after coming home from the beach he noted the rash. The rash is not pruritic. He states he has had a similar rash in the past. Related Data Previous Rx's Medication Instructions Recorded cyclobenzaprine 10 mg tablet 10 mg PO TID PRN muscle spasm #8 04/15/20 tabs lidocaine 5 % topical patch 1 patch topical DAILY #15 ea 04/15/20 (Lidoderm) cephalexin 500 mg tablet 500 mg PO QID 7 days #28 tabs 09/15/21 Allergies Allergy/AdvReac Type Severity Reaction Status Date / Time morphine [MORPHINE] Allergy Unknown CHEST PAIN Verified 07/29/21 13:56 Review of Systems Review of Systems: Yes all other systems are reviewed and are negative [facility] Past Medical History [facility] Narrative: Past medical history: Diabetes mellitus, hypertension, high cholesterol, chronic pain. Social history: He occasionally smokes cigarettes. He states he drinks alcohol socially. He denies drug use. Medical History HTN (hypertension) IDDM (insulin dependent diabetes mellitus) Social History Social History Alcohol intake: never Smoked in Last 30 Days: No Use of substances other than those prescribed or required for medical reasons: No Advance Directives: No Physical Exam ED Vital Signs: Vital Signs - 24 hr 11/25/22 13:16 11/25/22 14:31 Temperature 96.2 F L Pulse Rate 88 136 H Respiratory Rate 17 18 Blood Pressure 164/94 H 161/98 H Pulse Oximetry 95 98 Oxygen Delivery Method Room Air Room Air BMI result Body Mass Index 34.3 Const General: cooperative and no acute distress Orientation/consciousness: oriented to person and oriented to place Limitations: no limitations HENMT Head: Yes normal to inspection, Yes normocephalic and Yes atraumatic Ears: external ears normal General nose exam: Normal external nose present Face and sinus: Yes normal facial exam Mouth: Normal oral and palatal mucosa present Throat: Yes posterior oropharynx normal Eyes General: appearance normal, both eyes and all related structures Pupils: Equal, round and reactive pupils present Neck Neck: Yes normal visual inspection, Yes no lymphadenopathy, Yes trachea midline and Yes supple Chest Chest palpation & inspection: normal inspection of the chest and normal palpation of entire chest wall Resp Effort & Inspection: normal respiratory effort and able to speak in complete sentences Auscultation: clear to auscultation bilaterally Cardio Rate: regular rate Rhythm: regular rhythm Heart sounds: S1 normal heart sound present, S2 normal heart sound present and no murmurs GI Inspection: Yes normal to inspection Palpation (GI): Soft to palpation, nontender and no guarding Auscultation: normal bowel sounds General: Yes no CVA tenderness Back/Spine/Pelvis Back: no CVA tenderness Skin Other: Patient has a rash on his chest made is light in color, spine and also another rash that has a dark component underneath his left breast, the rash is consistent with tinea versicolor Neuro General: oriented to person and oriented to place Cranial nerves: Yes CN's II-XII intact bilaterally and Yes Equal, round and reactive pupils present Cognition (Neuro): normal cognition Motor exam (neuro): 5/5 motor strength present throughout Extrem General: Yes normal to inspection Psych Appearance: grossly normal Speech and movement: Normal speech and movement present Affect: normal affect Attitude: cooperative Thought process: Normal thought process present Thought content: Normal thought content present Course Course Course Narrative: This is an RME: Additional HPI, ROS, PE not included below will be deferred to primary provider. This is a 47 year old male, with a past medical history of HTN and DM presenting to the emergency department with complaints of dizziness, blurry vision, nausea, chest pain, SOB, x 3 days. He is a diabetic and has been without his metformin, glipizide and insulin for 3 days as he just moved. He has urinated 13 times in the last hour. POC in triage 409. BP mildly elevated at 164/94. Plan: Labs, EKG, CXR, UA ordered Medications Administered Discontinued Medications Generic Name Dose Route Start Last Admin Trade Name Camilo PRN Reason Stop Dose Admin Acetaminophen 975 mg 11/25/22 14:36 11/25/22 14:45 Acetaminophen 325 Mg Tablet PO 11/25/22 14:37 975 mg ONCE STA Administration Al Hydroxide/Mg Hydroxide 30 ml 11/25/22 16:05 11/25/22 16:10 Magnesium Hydrox/Alum Hydrox 30 Ml Oral.Susp PO 11/25/22 16:06 30 ml ONCE STA Administration Sodium Chloride 1,000 mls @ 999 mls/hr 11/25/22 14:36 11/25/22 16:03 Ns IV 11/25/22 15:36 999 mls/hr .Q1H1M STA Administration Insulin Human Regular 10 unit 11/25/22 14:36 11/25/22 14:43 Insulin Regular, Human 100 Unit/Ml 3 Ml Vial IVPUSH 11/25/22 14:37 10 unit ONCE ONE Administration Medical Decision Making Medical Decision Making [facility] Narrative: 47-year-old male with history of hypertension, hyperlipidemia, type 2 diabetes who has not had access to his medications for 3 days and presents with symptoms of hyperglycemia which include urinary frequency, increased thirst blurred vision, fatigue and sleepiness. Patient also has a rash which is consistent with tinea versicolor-he did go to the beach yesterday and got sun tanned. He has had a similar rash in the past. Patient's vital signs revealed an elevated blood pressure of 164/94 and elevated pulse of 136. He was afebrile with normal respiratory rate and normal O2 saturation. Patient's abnormal vital signs are secondary to volume depletion and dehydration due to his hyperglycemia. The following evaluation was ordered: CBC, BMP, liver panel, urinalysis, beta hydroxybutyrate, troponin, venous blood gas, urinalysis, point of care glucose, influenza, COVID-19, chest x-ray two view. Patient was ordered to get normal saline IV x2 L, regular insulin 10 units IV and Tylenol 975 mg orally for his headache 1443: My independent interpretation patient's laboratory evaluation is as follows: Elevated white blood count 48857, elevated glucose 399. Bicarb was normal. PH high 7.5 suggests that is not have diabetic ketoacidosis. Beta hydroxybutyrate was negative. Urinalysis was positive for glucose only, microscopic not consistent with urinary tract infection. COVID-19 and influenza were negative. 1717: Patient is feeling better after the above treatment. Patient's repeat point of care glucose is 208. Patient states that his daughter can machine pecan picker his medications he does not need prescription refills. He was advised to take his medications as prescribed by his providers. He was discharged home with printed and verbal instructions Differential Diagnosis Differential Diagnoses: The differential diagnosis associated with the presentation includes Differential diagnosis includes was not limited to noncompliance with medications, hyperglycemia, diabetic ketoacidosis, viral syndrome, bacterial infection, electrolyte abnormality, anemia. Admission/Observation Consideration of admission/observation: Escalation of care including admission/observation considered Lab Data [facility] Lab Attestation statement: I reviewed the patient's lab results. See [facility] 11/25/22 13:39 11/25/22 13:39 Labs: Lab Results 11/25/22 11/25/22 11/25/22 Range/Units 13:23 13:39 13:39 WBC 12.3 H (4.8-10.8) X10*3/uL RBC 6.06 H (4.60-5.80) X10*6/uL Hgb 15.1 (14.0-18.0) g/dl Hct 46.4 (42.0-52.0) % MCV 76.6 L (80.0-98.0) fL MCH 24.9 L (27.0-33.0) pg MCHC 32.5 (31.0-36.0) g/dl RDW 13.2 (11.0-16.0) % Plt Count 295 (160-400) X10*3/uL MPV 11.2 (9.4-12.4) fL Immature Gran % (Auto) 1.1 H (0.0-0.4) % Neut % (Auto) 76.6 H (45-73) % Lymph % (Auto) 15.6 L (20-40) % [place] % (Auto) 5.4 (2-11) % Eos % (Auto) 0.7 (0-4) % Baso % (Auto) 0.6 (0-2) % Lymph # (Auto) 1.9 (1.2-4.9) X10*3/uL [place] # (Auto) 0.7 (0.1-1.2) X10*3/uL Eos # (Auto) 0.1 (0.0-0.4) X10*3/uL Baso # (Auto) 0.1 (0.0-0.2) X10*3/uL Abs Immat Gran (auto) 0.14 H (0.00-0.03) X10*3/uL Absolute Neuts (auto) 9.5 H (2.0-8.3) x10*3/uL Absolute Nucleated RBC 0.000 (0.0-0.012) X10*3/uL Nucleated RBC % (auto) 0.0 (0.0-0.2) /100WBC VBG pH (7.32-7.43) VBG pCO2 mmHg VBG pO2 mmHg VBG HCO3 (22-26) mmol/L VBG O2 Saturation % VBG Base Excess mmol/L Sodium 135 (135-145) mmol/L Potassium 4.2 (3.3-5.1) mmol/L Chloride 102 (96-108) mmol/L Carbon Dioxide 22 (22-29) mmol/L Anion Gap 15 (12-20) BUN 8 L (9-16) mg/dL Creatinine 1.12 (0.5-1.4) mg/dL Estim Creat Clear Calc 98.3 Estimated GFR > 60 POC Glucose 409 H* (60-115) mg/dL Random Glucose 399 H* (60-115) mg/dL Calcium 9.3 (8.4-10.2) mg/dL Total Bilirubin 0.3 (0.0-1.0) mg/dL Direct Bilirubin 0.1 (0.0-0.5) mg/dL AST 21 (5-37) U/L ALT 25 (0-40) U/L Alkaline Phosphatase 76 (39-117) U/L Troponin I High Sens (<3.5-35.0) ng/L Total Protein 7.6 (6.5-8.0) g/dL Albumin 3.8 (3.5-5.0) g/dL Beta-Hydroxybutyrate (0.02-0.27) mmol/L Urine Color Urine Appearance Urine pH (5.0-9.0) Ur Specific [place] (1.005-1.025) Urine Protein (Neg-Trace) mg/dL Urine Glucose (UA) (Negative) mg/dL Urine Ketones (Negative) mg/dL Urine Blood (Negative) Urine Nitrite (Negative) Ur Leukocyte Esterase (Negative) Urine RBC (0-2) /HPF Urine WBC (0-5) /HPF Ur Squamous Epith Cells (0-2) /HPF Urine Bacteria (None Seen) Hyaline Casts (0-2) /LPF COVID-19 ([facility]) (Negative) COVID-19 Clin Com Influenza Type A ([facility]) (Negative) Influenza Type B ([facility]) (Negative) Influenza A & B Note 11/25/22 11/25/22 11/25/22 Range/Units 13:39 13:39 13:39 WBC (4.8-10.8) X10*3/uL RBC (4.60-5.80) X10*6/uL Hgb (14.0-18.0) g/dl Hct (42.0-52.0) % MCV (80.0-98.0) fL MCH (27.0-33.0) pg MCHC (31.0-36.0) g/dl RDW (11.0-16.0) % Plt Count (160-400) X10*3/uL MPV (9.4-12.4) fL Immature Gran % (Auto) (0.0-0.4) % Neut % (Auto) (45-73) % Lymph % (Auto) (20-40) % [place] % (Auto) (2-11) % Eos % (Auto) (0-4) % Baso % (Auto) (0-2) % Lymph # (Auto) (1.2-4.9) X10*3/uL [place] # (Auto) (0.1-1.2) X10*3/uL Eos # (Auto) (0.0-0.4) X10*3/uL Baso # (Auto) (0.0-0.2) X10*3/uL Abs Immat Gran (auto) (0.00-0.03) X10*3/uL Absolute Neuts (auto) (2.0-8.3) x10*3/uL Absolute Nucleated RBC (0.0-0.012) X10*3/uL Nucleated RBC % (auto) (0.0-0.2) /100WBC VBG pH (7.32-7.43) VBG pCO2 mmHg VBG pO2 mmHg VBG HCO3 (22-26) mmol/L VBG O2 Saturation % VBG Base Excess mmol/L Sodium (135-145) mmol/L Potassium (3.3-5.1) mmol/L Chloride (96-108) mmol/L Carbon Dioxide (22-29) mmol/L Anion Gap (12-20) BUN (9-16) mg/dL Creatinine (0.5-1.4) mg/dL Estim Creat Clear Calc Estimated GFR POC Glucose (60-115) mg/dL Random Glucose (60-115) mg/dL Calcium (8.4-10.2) mg/dL Total Bilirubin (0.0-1.0) mg/dL Direct Bilirubin (0.0-0.5) mg/dL AST (5-37) U/L ALT (0-40) U/L Alkaline Phosphatase (39-117) U/L Troponin I High Sens < 2.7 (<3.5-35.0) ng/L Total Protein (6.5-8.0) g/dL Albumin (3.5-5.0) g/dL Beta-Hydroxybutyrate 0.07 (0.02-0.27) mmol/L Urine Color Urine Appearance Urine pH (5.0-9.0) Ur Specific [place] (1.005-1.025) Urine Protein (Neg-Trace) mg/dL Urine Glucose (UA) (Negative) mg/dL Urine Ketones (Negative) mg/dL Urine Blood (Negative) Urine Nitrite (Negative) Ur Leukocyte Esterase (Negative) Urine RBC (0-2) /HPF Urine WBC (0-5) /HPF Ur Squamous Epith Cells (0-2) /HPF Urine Bacteria (None Seen) Hyaline Casts (0-2) /LPF COVID-19 ([facility]) (Negative) COVID-19 [facility] Influenza Type A ([facility]) Negative (Negative) Influenza Type B ([facility]) Negative (Negative) Influenza A & B Note See Note 11/25/22 11/25/22 11/25/22 Range/Units 13:39 13:39 13:43 WBC (4.8-10.8) X10*3/uL RBC (4.60-5.80) X10*6/uL Hgb (14.0-18.0) g/dl Hct (42.0-52.0) % MCV (80.0-98.0) fL MCH (27.0-33.0) pg MCHC (31.0-36.0) g/dl RDW (11.0-16.0) % Plt Count (160-400) X10*3/uL MPV (9.4-12.4) fL Immature Gran % (Auto) (0.0-0.4) % Neut % (Auto) (45-73) % Lymph % (Auto) (20-40) % [place] % (Auto) (2-11) % Eos % (Auto) (0-4) % Baso % (Auto) (0-2) % Lymph # (Auto) (1.2-4.9) X10*3/uL [place] # (Auto) (0.1-1.2) X10*3/uL Eos # (Auto) (0.0-0.4) X10*3/uL Baso # (Auto) (0.0-0.2) X10*3/uL Abs Immat Gran (auto) (0.00-0.03) X10*3/uL Absolute Neuts (auto) (2.0-8.3) x10*3/uL Absolute Nucleated RBC (0.0-0.012) X10*3/uL Nucleated RBC % (auto) (0.0-0.2) /100WBC VBG pH 7.50 H (7.32-7.43) VBG pCO2 28 mmHg VBG pO2 87 mmHg VBG HCO3 22 (22-26) mmol/L VBG O2 Saturation 99.0 % VBG Base Excess 1.0 mmol/L Sodium (135-145) mmol/L Potassium (3.3-5.1) mmol/L Chloride (96-108) mmol/L Carbon Dioxide (22-29) mmol/L Anion Gap (12-20) BUN (9-16) mg/dL Creatinine (0.5-1.4) mg/dL Estim Creat Clear Calc Estimated GFR POC Glucose (60-115) mg/dL Random Glucose (60-115) mg/dL Calcium (8.4-10.2) mg/dL Total Bilirubin (0.0-1.0) mg/dL Direct Bilirubin (0.0-0.5) mg/dL AST (5-37) U/L ALT (0-40) U/L Alkaline Phosphatase (39-117) U/L Troponin I High Sens (<3.5-35.0) ng/L Total Protein (6.5-8.0) g/dL Albumin (3.5-5.0) g/dL Beta-Hydroxybutyrate (0.02-0.27) mmol/L Urine Color Yellow Urine Appearance Clear Urine pH 8.0 (5.0-9.0) Ur Specific [place] >= 1.030 H (1.005-1.025) Urine Protein Negative (Neg-Trace) mg/dL Urine Glucose (UA) >=1000 H (Negative) mg/dL Urine Ketones Negative (Negative) mg/dL Urine Blood Negative (Negative) Urine Nitrite Negative (Negative) Ur Leukocyte Esterase Negative (Negative) Urine RBC 0-2 (0-2) /HPF Urine WBC 0-5 (0-5) /HPF Ur Squamous Epith Cells 0-2 (0-2) /HPF Urine Bacteria None Seen (None Seen) Hyaline Casts 0-2 (0-2) /LPF COVID-19 ([facility]) Negative (Negative) COVID-19 Clin Com See Note Influenza Type A ([facility]) (Negative) Influenza Type B ([facility]) (Negative) Influenza A & B Note 11/25/22 Range/Units 15:54 WBC (4.8-10.8) X10*3/uL RBC (4.60-5.80) X10*6/uL Hgb (14.0-18.0) g/dl Hct (42.0-52.0) % MCV (80.0-98.0) fL MCH (27.0-33.0) pg MCHC (31.0-36.0) g/dl RDW (11.0-16.0) % Plt Count (160-400) X10*3/uL MPV (9.4-12.4) fL Immature Gran % (Auto) (0.0-0.4) % Neut % (Auto) (45-73) % Lymph % (Auto) (20-40) % [place] % (Auto) (2-11) % Eos % (Auto) (0-4) % Baso % (Auto) (0-2) % Lymph # (Auto) (1.2-4.9) X10*3/uL [place] # (Auto) (0.1-1.2) X10*3/uL Eos # (Auto) (0.0-0.4) X10*3/uL Baso # (Auto) (0.0-0.2) X10*3/uL Abs Immat Gran (auto) (0.00-0.03) X10*3/uL Absolute Neuts (auto) (2.0-8.3) x10*3/uL Absolute Nucleated RBC (0.0-0.012) X10*3/uL Nucleated RBC % (auto) (0.0-0.2) /100WBC VBG pH (7.32-7.43) VBG pCO2 mmHg VBG pO2 mmHg VBG HCO3 (22-26) mmol/L VBG O2 Saturation % VBG Base Excess mmol/L Sodium (135-145) mmol/L Potassium (3.3-5.1) mmol/L Chloride (96-108) mmol/L Carbon Dioxide (22-29) mmol/L Anion Gap (12-20) BUN (9-16) mg/dL Creatinine (0.5-1.4) mg/dL Estim Creat Clear Calc Estimated GFR POC Glucose 208 H (60-115) mg/dL Random Glucose (60-115) mg/dL Calcium (8.4-10.2) mg/dL Total Bilirubin (0.0-1.0) mg/dL Direct Bilirubin (0.0-0.5) mg/dL AST (5-37) U/L ALT (0-40) U/L Alkaline Phosphatase (39-117) U/L Troponin I High Sens (<3.5-35.0) ng/L Total Protein (6.5-8.0) g/dL Albumin (3.5-5.0) g/dL Beta-Hydroxybutyrate (0.02-0.27) mmol/L Urine Color Urine Appearance Urine pH (5.0-9.0) Ur Specific [place] (1.005-1.025) Urine Protein (Neg-Trace) mg/dL Urine Glucose (UA) (Negative) mg/dL Urine Ketones (Negative) mg/dL Urine Blood (Negative) Urine Nitrite (Negative) Ur Leukocyte Esterase (Negative) Urine RBC (0-2) /HPF Urine WBC (0-5) /HPF Ur Squamous Epith Cells (0-2) /HPF Urine Bacteria (None Seen) Hyaline Casts (0-2) /LPF COVID-19 ([facility]) (Negative) COVID-19 Clin Com Influenza Type A ([facility]) (Negative) Influenza Type B ([facility]) (Negative) Influenza A & B Note Independent Interpretation I performed an independent interpretation of an: Plain X-Ray Interpretation: My independent interpretation patient's two view chest x-ray is as follows: No acute disease Radiology Impression Discussion of test interpretation with radiology: I have reviewed the radiologist's reading. Radiologist Impression: XR chest 2V IMPRESSION: No acute cardiopulmonary process. Dictated By:Nelson Marcelino MD Chronic Conditions Patient?s care impacted by: Diabetes Discharge Plan Discharge Clinical Impression: Acute hyperglycemia, Volume depletion, Diabetes Patient Disposition: Home, Self-Care Additional Instructions: Your symptoms were caused by your sugar being high and you being dehydrated/volume deplete . Your body try to get rid of this high blood sugar box dissolving the high sugar in water and causing you to pee frequently. Increase your fluid intake to prevent dehydration Continue taking your medications as prescribed by your providers. Follow-up with your doctor in 2 days. Please return to the emergency department if your symptoms get worse or if you develop any symptoms that are concerning to you. Prescriptions: No Action cyclobenzaprine 10 mg tablet 10 mg PO TID PRN (Reason: muscle spasm) Qty: 8 0RF lidocaine [Lidoderm] 5 % adhesive patch,medicated 1 patch topical DAILY Qty: 15 0RF Rx Instructions: leave on most painful area for up to 12 hrs cephalexin 500 mg tablet 500 mg PO QID 7 Days Qty: 28 0RF
--- NOTE | 2022-11-25 13:20 | ECG_ITS ---
Test Reason : CP Blood Pressure : / mmHG Vent. Rate : 084 BPM Atrial Rate : 084 BPM P-R Int : 110 ms QRS Dur : 118 ms QT Int : 394 ms P-R-T Axes : 042 025 030 degrees QTc Int : 465 ms Sinus rhythm with short AK Right bundle branch block Abnormal ECG When compared with ECG of 28-MAY-2022 11:17, No significant change was found Referred By: Zahraa Delarosa Electronically Signed By:NU LEE
[2022-11-25 13:27] LABS: Glucose, Whole Blood 409 mg/dL (60-115)
[2022-11-25 13:43] LABS: MANUAL DIFF FLAG NO
[2022-11-25 13:46] LABS: Basophils Absolute Auto 0.1 X10*3/uL (0.0-0.2); Basophils Percent Auto 0.6 % (0-2); Eosinophils Absolute Auto 0.1 X10*3/uL (0.0-0.4); Eosinophils Percent Auto 0.7 % (0-4); Hematocrit 46.4 % (42.0-52.0); Hemoglobin 15.1 g/dl (14.0-18.0); Imm Gran Abs Auto 0.14 X10*3/uL (0.00-0.03); Imm Gran Pct Auto 1.1 % (0.0-0.4); Lymphocytes Absolute Auto 1.9 X10*3/uL (1.2-4.9); Lymphocytes Percent Auto 15.6 % (20-40); Mean Corpuscular HGB Conc 32.5 g/dl (31.0-36.0); Mean Corpuscular Hemoglobin 24.9 pg (27.0-33.0); Mean Corpuscular Volume 76.6 fL (80.0-98.0); Mean Platelet Volume 11.2 fL (9.4-12.4); Monocytes Absolute Auto 0.7 X10*3/uL (0.1-1.2); Monocytes Percent Auto 5.4 % (2-11); Neutrophils Absolute Auto 9.5 x10*3/uL (2.0-8.3); Neutrophils Percent Auto 76.6 % (45-73); Platelet Count 295 X10*3/uL (160-400); Red Blood Count 6.06 X10*6/uL (4.60-5.80); Red Cell Distribution Width 13.2 % (11.0-16.0); White Blood Count 12.3 X10*3/uL (4.8-10.8)
[2022-11-25 13:48] LABS: Venous Blood Gas Refer to POC result
[2022-11-25 13:49] LABS: Appearance Urine Clear; Color Urine Yellow; Glucose Urine UA >=1000 mg/dL (Negative); Leukocyte Esterase Urine Negative (Negative); Nitrite Urine Negative (Negative); Specific Gravity - Urine >= 1.030 (1.005-1.025); UMIC TRIGGER UACC YES; Urine Blood Negative (Negative); Urine Ketones Negative (Negative); Urine Protein Negative (Neg-Trace)
[2022-11-25 13:51] LABS: VBG HCO3 22 mmol/L (22-26); VBG pCO2 28 mmHg; VBG pO2 87 mmHg
[2022-11-25 13:54] LABS: Bacteria Urine None Seen (None Seen); Hyaline Casts Urine 0-2 /LPF (0-2); RBC Urine 0-2 /HPF (0-2); Squamous Epithelial Cell Urine 0-2 /HPF (0-2); WBC Urine 0-5 /HPF (0-5)
[2022-11-25 13:59] LABS: COVID-19 Test Negative (Negative); IDNOW Serial# BCCEAD1C
[2022-11-25 14:06] LABS: IDNOW Serial# 08D9AD1C; Influenza A Negative (Negative); Influenza B2 Negative (Negative)
[2022-11-25 14:11] LABS: Alanine Aminotransferase 25 U/L (0-40); Albumin Level 3.8 g/dL (3.5-5.0); Alkaline Phosphatase 76 U/L (39-117); Anion Gap 15 (12-20); Aspartate Amino Transferase 21 U/L (5-37); Beta-Hydroxybutyrate 0.07 mmol/L (0.02-0.27); Bilirubin Direct 0.1 mg/dL (0.0-0.5); Bilirubin Total 0.3 mg/dL (0.0-1.0); Blood Urea Nitrogen 8 mg/dL (9-16); Calcium 9.3 mg/dL (8.4-10.2); Carbon Dioxide 22 mmol/L (22-29); Chloride 102 mmol/L (96-108); Creatinine Clr Calc Pharmacy 98.3; Estimated Glomerular Filt Rate > 60; Glucose Random 399 mg/dL (60-115); Potassium 4.2 mmol/L (3.3-5.1); Sodium 135 mmol/L (135-145); Total Protein 7.6 g/dL (6.5-8.0)
[2022-11-25 14:18] LABS: Troponin-I High Sensitivity < 2.7 ng/L (<3.5-35.0)
[2022-11-25 14:31] VITALS: BP 161/98; PULSE 136; RESP 18; O2SAT 98
[2022-11-25] MEDS: Insulin Regular, Human 100 UNIT/ML 3 ML VIAL 10 UNIT IVPUSH (14:43)
[2022-11-25] MEDS: Acetaminophen 325 MG TABLET 975 MG PO (14:45)
--- NOTE | 2022-11-25 16:00 | PC.NURSE ---
Blood glucose 207
[2022-11-25 16:02] LABS: Glucose, Whole Blood 208 mg/dL (60-115)
[2022-11-25] MEDS: 0.9 % Sodium Chloride 1,000 ML 999 ML IV (16:03)
[2022-11-25] MEDS: Magnesium Hydrox/Alum Hydrox 30 ML ORAL.SUSP PO (16:10)
--- NOTE | 2022-11-25 17:48 | PC.NURSE ---
Discharge plan reviewed with patient who verbalized understanding
== END 2022-11-25 17:49 | disposition home or self-care (01) ==
PROVIDERS: Physician Assistant Medical; Emergency Provider Emergency Medicine Emergency Medical Services; PCP Internal Medicine
DX: E11.65 Type 2 diabetes mellitus with hyperglycemia (principal); E86.0 Dehydration; R07.89 Other chest pain; Z20.822 Contact with and (suspected) exposure to COVID-19; Z20.828 Contact with and (suspected) exposure to other viral communicable diseases; Z79.899 Other long term (current) drug therapy
CPT/HCPCS: 36415; 71046; 80048; 80076; 81001; 82010; 82803; 82947; 84484; 85025; 87502; 87635; 93005; 96374; 99284; 99285

== ENCOUNTER → 2022-11-25 13:20 | Outpatient (BNV) | payer MEDICAID, SELFPAY | PROVIDERS: Emergency Provider Emergency Medicine Emergency Medical Services; PCP Internal Medicine; Visit Provider Internal Medicine | DX: I45.6 Pre-excitation syndrome (principal); I45.10 Unspecified right bundle-branch block | CPT/HCPCS: 93010 ==

== ENCOUNTER 2023-01-24 08:15 | Emergency (ER) | payer MEDICAID, SELFPAY ==
--- NOTE | ~2023-01-24 | XR_ITS ---
EXAMINATION: XR CHEST CLINICAL INFORMATION: Cough and shortness of breath COMPARISON: Previous chest x-ray most recent November 2022 TECHNIQUE: 2 views of the chest were obtained. FINDINGS: No significant abnormality is noted involving the heart, lungs, mediastinum, bony thorax or soft tissues. XR/XR chest 2V IMPRESSION: Unremarkable examination.
--- NOTE | 2023-01-24 08:16 | ECG_ITS ---
Test Reason : CHEST PAIN Blood Pressure : / mmHG Vent. Rate : 060 BPM Atrial Rate : 060 BPM P-R Int : 122 ms QRS Dur : 126 ms QT Int : 442 ms P-R-T Axes : 043 025 021 degrees QTc Int : 442 ms Normal sinus rhythm Possible Left atrial enlargement Right bundle branch block Nonspecific T wave abnormality Abnormal ECG When compared with ECG of 25-NOV-2022 13:28, Nonspecific T wave abnormality has replaced inverted T waves in Anterior leads Referred By: Generic ED Physician Electronically Signed By:ALYSA ESCALANTE
--- NOTE | 2023-01-24 08:17 | ED.CHESTPAIN ---
HPI - Chest Pain General Chief Complaint: Chest Pain Stated Complaint: Chest pain, covid symptoms Time Seen by Provider: 01/24/23 08:17 Source: patient, RN notes reviewed and old records reviewed Mode of arrival: ambulatory History of Present Illness HPI narrative: 47-year-old male with past medical history of HTN, diabetes, presenting to the ED complaining of constant substernal chest pressure x3 days with associated dry cough, subjective fever, sore throat, and SOB. 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 Denies abdominal pain, nausea/vomiting, radiating chest pain, pedal edema, recent travel, exertional dyspnea MD complaint: chest pain Related Data Previous Rx's Medication Instructions Recorded cyclobenzaprine 10 mg tablet 10 mg PO TID PRN muscle spasm #8 04/15/20 tabs lidocaine 5 % topical patch 1 patch topical DAILY #15 ea 04/15/20 (Lidoderm) cephalexin 500 mg tablet 500 mg PO QID 7 days #28 tabs 09/15/21 Allergies Allergy/AdvReac Type Severity Reaction Status Date / Time morphine [MORPHINE] Allergy Unknown CHEST PAIN Verified 07/29/21 13:56 Review of Systems Review of Systems: Constitutional: +Subj Fever, No Chills, No Fatigue, No Malaise ENT/Mouth: No Ear Pain, No Nasal Congestion, No Sinus Pain, No Hoarseness, +sore throat, No Rhinorrhea, No Swallowing Difficulty Eyes: No Eye Pain, No Swelling, No Redness, No Foreign Body, No Discharge, No Vision Changes Cardiovascular: +Chest Pain, + SOB, No Dyspnea on Exertion, No Orthopnea, No Edema, No Palpitations Respiratory: + Cough, No Sputum, No Wheezing, No Smoke Exposure, No Dyspnea Gastrointestinal: No Nausea, No Vomiting, No Diarrhea, No Constipation, No Abdominal pain Musculoskeletal: No joint pain, No Myalgias, No Joint Swelling Skin: No Skin Lesions, No rash Neuro: No Weakness, No Headache Yes all other systems are reviewed and are negative Constitutional: Constitutional: Reports as per [facility] Past Medical History Attestation statement: The following information was validated with the patient. Source: old records reviewed Medical History HTN (hypertension) IDDM (insulin dependent diabetes mellitus) Social History Social History Alcohol intake: never Smoked in Last 30 Days: Yes Use of substances other than those prescribed or required for medical reasons: No Advance Directives: Yes Advance Directives Information Provided: Yes Advance Directives on File: No Physical Exam Vital Signs: Vital Signs: Last Vital Signs Temp 98.4 F 01/24/23 09:13 Pulse 56 01/24/23 09:13 Resp 14 01/24/23 09:13 BP 130/82 01/24/23 09:13 Pulse Ox 98 01/24/23 09:13 O2 Del Method Room Air 01/24/23 09:13 BMI result Body Mass Index 32.1 Const: General: cooperative, healthy appearing and no acute distress Orientation/consciousness: patient oriented x3 Limitations: no limitations HEENT: Head: Yes normal to inspection and Yes atraumatic Ears: hearing grossly normal bilaterally General nose exam: Normal external nose present Face and sinus: Yes normal facial exam Throat: Yes tonsils normal, Yes uvula midline, No peritonsillar mass, Yes posterior oropharynx abnormal (Mild erythematous), No uvula laterally displaced and No uvular edema Eyes: General: appearance normal, both eyes and all related structures EOM: EOMs intact bilaterally Neck: Neck: Yes normal visual inspection and Yes no meningeal signs Resp: Effort & Inspection: normal respiratory effort and no respiratory distress Auscultation: clear to auscultation bilaterally, no crackles and no wheezes Cardio: Rate: regular rate Heart sounds: S1 normal heart sound present and S2 normal heart sound present GI: Inspection: Yes normal to inspection Palpation (GI): Soft to palpation Skin: Rashes: no rashes Wounds: no wounds Neuro: General: patient oriented x3, tone normal and no meningeal signs Cranial nerves: Yes CN's II-XII intact bilaterally Gait exam (Neuro): Normal gait present Extrem: General: Yes normal to inspection and Yes no pedal edema Course Course Course Narrative: 1005--no leukocytosis. Troponin negative. Labs otherwise reassuring -Chest X-ray unremarkable -COVID-19 positive Results discussed with patient including worrisome signs and symptoms and strict return precautions, and when to return to the emergency department. They verbalized understanding and feel safe for discharge at this time. Medications Administered Discontinued Medications Generic Name Dose Route Start Last Admin Trade Name Camilo PRN Reason Stop Dose Admin Ketorolac Tromethamine 15 mg 01/24/23 08:45 01/24/23 08:51 Ketorolac Tromethamine 15 Mg/Ml Vial IVPUSH 01/24/23 08:46 15 mg ONCE ONE Administration Medical Decision Making Medical Decision Making [facility] Narrative: 47-year-old male with past medical history of HTN, diabetes, presenting to the ED complaining of constant substernal chest pressure x3 days with associated dry cough, subjective fever, sore throat, and SOB. On exam vital signs stable, NAD, nontoxic appearing, lungs CTA, posterior oropharynx with mild erythema, tonsils WNL, uvula midline can talk in complete sentences, no pedal edema. Concern for viral illness including COVID-19 vs pneumonia or bronchitis vs ACS. Lower suspicion for strep pharyngitis, CHF, PE, DVT, or dissection. Plan: EKG, labs, CXR, viral testing Please refer to course for remaining clinical decision making, interpretation of labs/imaging results, and discussions with consultants and/or family members. Differential Diagnosis Differential Diagnoses: The differential diagnosis associated with the presentation includes As above Admission/Observation Consideration of admission/observation: Escalation of care including admission/observation considered Lab Data [facility] Lab Attestation statement: I reviewed the patient's lab results. 01/24/23 08:43 01/24/23 08:43 Labs: Lab Results 01/24/23 Range/Units 08:43 WBC 9.6 (4.8-10.8) X10*3/uL RBC 5.94 H (4.60-5.80) X10*6/uL Hgb 14.9 (14.0-18.0) g/dl Hct 46.2 (42.0-52.0) % MCV 77.8 L (80.0-98.0) fL MCH 25.1 L (27.0-33.0) pg MCHC 32.3 (31.0-36.0) g/dl RDW 13.8 (11.0-16.0) % Plt Count 289 (160-400) X10*3/uL MPV 12.1 (9.4-12.4) fL Immature Gran % (Auto) 1.0 H (0.0-0.4) % Neut % (Auto) 62.2 (45-73) % Lymph % (Auto) 23.1 (20-40) % [place] % (Auto) 11.3 H (2-11) % Eos % (Auto) 1.8 (0-4) % Baso % (Auto) 0.6 (0-2) % Lymph # (Auto) 2.2 (1.2-4.9) X10*3/uL [place] # (Auto) 1.1 (0.1-1.2) X10*3/uL Eos # (Auto) 0.2 (0.0-0.4) X10*3/uL Baso # (Auto) 0.1 (0.0-0.2) X10*3/uL Abs Immat Gran (auto) 0.10 H (0.00-0.03) X10*3/uL Absolute Neuts (auto) 5.9 (2.0-8.3) x10*3/uL Absolute Nucleated RBC 0.000 (0.0-0.012) X10*3/uL Nucleated RBC % (auto) 0.0 (0.0-0.2) /100WBC Sodium 133 L (135-145) mmol/L Potassium 4.0 (3.3-5.1) mmol/L Chloride 99 (96-108) mmol/L Carbon Dioxide 22 (22-29) mmol/L Anion Gap 16 (12-20) BUN 9 (9-16) mg/dL Creatinine 1.01 (0.5-1.4) mg/dL Estim Creat Clear Calc 108.7 Estimated GFR > 60 Random Glucose 298 H (60-115) mg/dL Calcium 9.7 (8.4-10.2) mg/dL Troponin I High Sens < 2.7 (<3.5-35.0) ng/L COVID-19 ([place]) Positive A (Negative) COVID-19 Clin Com See Note Influenza Type A ([facility]) Negative (Negative) Influenza Type B ([facility]) Negative (Negative) Influenza A & B Note See Note S. pyogenes GrpA [facility] Negative (Negative) Independent Interpretation I performed an independent interpretation of an: EKG (EKG normal sinus rhythm at a rate of 60. NE interval 122. Right bundle branch block. Nonspecific T-wave abnormality has replaced inverted T-waves in anterior leads. Next) and Plain X-Ray Radiology Impression Discussion of test interpretation with radiology: I have reviewed the radiologist's reading. External Record Review External record reviewed: Inpatient record, Office record, Outpatient record, Prior outpatient labs, Prior outpatient radiology, Primary care record and Outside ED record Tests considered The following testing was considered but not selected: As above Prescription Management I considered prescription management with: Pain Medication and Antibiotic Chronic Conditions Patient?s care impacted by: Diabetes and Hypertension Discharge Plan Discharge Patient Disposition: Home, Self-Care Prescriptions: No Action cyclobenzaprine 10 mg tablet 10 mg PO TID PRN (Reason: muscle spasm) Qty: 8 0RF lidocaine [Lidoderm] 5 % adhesive patch,medicated 1 patch topical DAILY Qty: 15 0RF Rx Instructions: leave on most painful area for up to 12 hrs cephalexin 500 mg tablet 500 mg PO QID 7 Days Qty: 28 0RF Referrals: Jordy Jo MD [Primary Care Provider] - 3 days
[2023-01-24 08:19] VITALS: RESP 16; TEMP 36.1; BMI 32.1
[2023-01-24 08:28] VITALS: BP 112/54; PULSE 66; RESP 18; TEMP 36.8; O2SAT 99
[2023-01-24 08:48] LABS: MANUAL DIFF FLAG NO
[2023-01-24] MEDS: Ketorolac Tromethamine 15 MG/ML VIAL IVPUSH (08:51)
[2023-01-24 08:52] LABS: Basophils Absolute Auto 0.1 X10*3/uL (0.0-0.2); Basophils Percent Auto 0.6 % (0-2); Eosinophils Absolute Auto 0.2 X10*3/uL (0.0-0.4); Eosinophils Percent Auto 1.8 % (0-4); Hematocrit 46.2 % (42.0-52.0); Hemoglobin 14.9 g/dl (14.0-18.0); Lymphocytes Absolute Auto 2.2 X10*3/uL (1.2-4.9); Lymphocytes Percent Auto 23.1 % (20-40); Mean Corpuscular HGB Conc 32.3 g/dl (31.0-36.0); Mean Corpuscular Hemoglobin 25.1 pg (27.0-33.0); Mean Corpuscular Volume 77.8 fL (80.0-98.0); Mean Platelet Volume 12.1 fL (9.4-12.4); Monocytes Absolute Auto 1.1 X10*3/uL (0.1-1.2); Monocytes Percent Auto 11.3 % (2-11); Neutrophils Absolute Auto 5.9 x10*3/uL (2.0-8.3); Neutrophils Percent Auto 62.2 % (45-73); Platelet Count 289 X10*3/uL (160-400); Red Blood Count 5.94 X10*6/uL (4.60-5.80); Red Cell Distribution Width 13.8 % (11.0-16.0); White Blood Count 9.6 X10*3/uL (4.8-10.8)
[2023-01-24 09:02] LABS: IDNOW Serial# 08D9AD1C; Strep A Nucleic Acid Negative (Negative)
[2023-01-24 09:04] LABS: COVID-19 Test Positive (Negative); IDNOW Serial# 55D5AD1C
[2023-01-24 09:09] LABS: Anion Gap 16 (12-20); Blood Urea Nitrogen 9 mg/dL (9-16); Calcium 9.7 mg/dL (8.4-10.2); Carbon Dioxide 22 mmol/L (22-29); Chloride 99 mmol/L (96-108); Creatinine Clr Calc Pharmacy 108.7; Estimated Glomerular Filt Rate > 60; Glucose Random 298 mg/dL (60-115); Sodium 133 mmol/L (135-145)
[2023-01-24 09:12] LABS: IDNOW Serial# 9DB6401D; Influenza A Negative (Negative); Influenza B2 Negative (Negative)
[2023-01-24 09:13] VITALS: BP 130/82; PULSE 56; RESP 14; TEMP 36.9; O2SAT 98
[2023-01-24 09:29] LABS: Troponin-I High Sensitivity < 2.7 ng/L (<3.5-35.0)
== END 2023-01-24 10:35 | disposition home or self-care (01) ==
PROVIDERS: Physician Assistant; Emergency Provider Emergency Medicine; PCP Internal Medicine
DX: R07.89 Other chest pain (principal); R05.9 Cough, unspecified; R50.9 Fever, unspecified; R06.02 Shortness of breath; Z20.822 Contact with and (suspected) exposure to COVID-19; Z20.828 Contact with and (suspected) exposure to other viral communicable diseases; Z79.899 Other long term (current) drug therapy
CPT/HCPCS: 71046; 80048; 84484; 85025; 87502; 87635; 87651; 93005; 96374; 99284; 99285; J1885

== ENCOUNTER 2023-10-19 11:22 | Outpatient (REF) | payer MEDICAID, SELFPAY ==
[2023-10-22 07:19] LABS: TS Negative Control Passed; TS Panel A 0; TS Panel B 0; TS Positive Control Passed; TSpotTB Negative (Negative)
== END 2023-10-19 11:23 | disposition home or self-care (01) ==
LOC: HO.HHCL 11:22
PROVIDERS: Visit Provider Internal Medicine
DX: Z02.89 Encounter for other administrative examinations (principal)
CPT/HCPCS: 36415; 86481

== ENCOUNTER 2024-03-14 12:02 | Outpatient (REF) | payer MEDICAID, SELFPAY ==
--- NOTE | ~2024-03-14 | XR_ITS ---
EXAMINATION: XR KNEE, RIGHT CLINICAL INFORMATION: Patient with chronic bilateral knee pain. COMPARISON: None available. TECHNIQUE: Four views of the right knee. FINDINGS: No fracture or joint effusion. Alignment is anatomic. Joint spaces are maintained. No abnormal soft tissue calcification. XR/XR knee RT 3V IMPRESSION: Normal right knee. Electronically signed by: Jose Gamble MD 03/14/2024 03:22 PM [facility]
--- NOTE | ~2024-03-14 | XR_ITS ---
EXAMINATION: XR KNEE, LEFT CLINICAL INFORMATION: Patient with chronic bilateral knee pain. COMPARISON: None available. TECHNIQUE: 3 views of the left knee. FINDINGS: No fracture or joint effusion. Alignment is anatomic. Joint spaces are maintained. No abnormal soft tissue calcification. XR/XR knee LT 3V IMPRESSION: Normal left knee. Electronically signed by: Jose Gamble MD 03/14/2024 03:22 PM EST
== END 2024-03-14 12:03 | disposition home or self-care (01) ==
LOC: HO.HHCX 12:02
PROVIDERS: Visit Provider Family Medicine
DX: M25.561 Pain in right knee (principal); M25.562 Pain in left knee; G89.29 Other chronic pain
CPT/HCPCS: 73562

== ENCOUNTER 2024-03-22 16:50 | Outpatient (REF) | payer MEDICAID, SELFPAY ==
[2024-03-23 08:54] LABS: H Pylori Breath Test Negative (Negative)
== END 2024-03-22 16:51 | disposition home or self-care (01) ==
LOC: HO.HHCLNP 16:50
PROVIDERS: Visit Provider Emergency Medicine
DX: K21.9 Gastro-esophageal reflux disease without esophagitis (principal)
CPT/HCPCS: 83013

== ENCOUNTER 2024-04-11 10:15 | Outpatient (REF) | payer MEDICAID, SELFPAY ==
[2024-04-11 11:34] LABS: Alanine Aminotransferase 34 U/L (0-40); Albumin Level 4.2 g/dL (3.5-5.0); Alkaline Phosphatase 70 U/L (39-117); Anion Gap 11 (12-20); Aspartate Amino Transferase 26 U/L (5-37); Bilirubin Total 0.4 mg/dL (0.0-1.0); Blood Urea Nitrogen 12 mg/dL (9-16); Calcium 8.9 mg/dL (8.4-10.2); Carbon Dioxide 25 mmol/L (22-29); Chloride 105 mmol/L (96-108); Cholesterol 150 mg/dL (<200); Estimated Glomerular Filt Rate > 60; Glucose Random 150 mg/dL (60-115); HDL Cholesterol 31 mg/dL (>40); LDL Cholesterol Calculated 87 mg/dL (<100); Lipase 35 U/L (8-78); Potassium 3.9 mmol/L (3.3-5.1); Sodium 137 mmol/L (135-145); Total Protein 7.9 g/dL (6.5-8.0); Triglycerides 163 mg/dL (<150)
[2024-04-11 11:48] LABS: Prostate Specific Antigen Scr 0.42 ng/mL (<0.05-4.0)
[2024-04-11 11:59] LABS: Creatinine Urine 303.31 mg/dL; Microalbum/Creatinine Ratio Ur 10.5 ug/mg cr (<30)
== END 2024-04-11 10:16 | disposition home or self-care (01) ==
LOC: HO.HHCL 10:15
PROVIDERS: Visit Provider Internal Medicine
DX: Z00.00 Encounter for general adult medical examination without abnormal findings (principal); I10 Essential (primary) hypertension; K85.90 Acute pancreatitis without necrosis or infection, unspecified; E11.42 Type 2 diabetes mellitus with diabetic polyneuropathy; Z79.4 Long term (current) use of insulin
CPT/HCPCS: 36415; 80053; 80061; 82043; 82570; 83690; 84153

== ENCOUNTER → 2024-07-10 19:30 | Outpatient (REF) | payer MEDICAID, SELFPAY | LOC: HO.SL 19:30 | PROVIDERS: PCP Internal Medicine; Visit Provider Internal Medicine | DX: G47.33 Obstructive sleep apnea (adult) (pediatric) (principal) | CPT/HCPCS: 95810 ==

== ENCOUNTER → 2024-07-10 20:30 | Outpatient (BNV) | payer MEDICAID, SELFPAY | PROVIDERS: PCP Internal Medicine; Visit Provider Internal Medicine | DX: G47.33 Obstructive sleep apnea (adult) (pediatric) (principal) | CPT/HCPCS: 95810 ==

== ENCOUNTER 2025-03-28 13:21 | Outpatient (REF) | payer MEDICAID, SELFPAY ==
--- OUTSIDE RECORDS SUMMARY | 2025-03-28 15:55 | XMS_ITS | Encounter Summary ---
Author Organization [employer] Address [address] [facility] [address] [place] [address] Care Team Providers Care Interior Design Assistant Name Role Phone Jordy Villeda MD Primary Care Provide r Reason for Visit * Reason Onset Date Comments Med Refill 09/13/2023 Encounter Details Date Type Department Care Team ([facility] Contact Info) Description 09/13/2023 Telephone [facility] MEDICINE [address] [place], [place] [phone] Jordy Villeda MD [address] [place], [place] [phone] Med Refill Social History Tobacco Use Types Packs/Day Years Used Date Smoking Tobacco: Some Days Cigarettes 0.3 20 Passive Smoke Exposure: Current Smokeless Tobacco: Never Alcohol Use Standard Drinks/Week Comments Yes 6 (1 standard drink = 0.6 oz pur e alcohol) Socially Depression Answer Date Recorded Patient Health Questionnaire-9 Score 14 01/12/2023 Housing Stability Answer Date Recorded What is your housing situation today? I have monica bauman 02/08/[address] you li ve. Do you have problems with any of the following? None of the above 02/08/2023 Food Insecurity Answer Date Recorded Within the past 12 months, y ou worried that your food would run out before you got money to buy more: Never True 02/08/2023 Within the past 12 months,th e food you bought just didn't last and you didn't have enough money to get more: Never True Transportation Answer Date Recorded In the past 12 months, has l ack of transportation kept you from medical appts, meetings, work or from getting things needed for daily living? No 02/08/2023 Utilities Answer Date Recorded In the past 12 months, has t he electric, gas, oil or water company threatened to shut off services in your home? No 02/08/2023 Depression Answer Date Recorded Patient Health Questionnaire-2 Score 2 01/12/2023 Sex and Gender Information Value Date Recorded Sex Assigned at Male 02/23/2022 10:16 AM EDT Legal Sex Male 10:16 AM EDT Gender Identity Male 02/23/2022 10:16 AM EDT Sexual Orientation Straight 02/23/2022 10 :16 AM EDT documented as of this encounter Miscellaneous Notes * Telephone Encounter - Chelsea Koch LPN - 09/13/2023 11:42 AM EDT LOGGING TRACTOR OPERATOR checked on 09/13/23 medication last filled on 08/23/23 #30 to soon for refill. * Telephone Encounter - Laverne Smith - 09/13/2023 11:29 AM EDT TC from pt requesting medication refill. Medications needing refill : zolpidem (Ambien) 10 MG tablet To be sent to: . [facility] - [place], [place] - [address] [facility] documented in this encounter Plan of Treatment Not on file documented as of this encounter Visit Diagnoses Not on filedocumented in this encounter Additional Health Concerns Assessment Noted Time PHQ-9 Depression Total Score: 14 023 11:47 AM EDT documented as of this encounter Care Teams Interior Design Assistant Relationship Specialty Start Date End Date Jordy Villeda MD [address] [place] [address] PCP - General Internal Medicine 12/06/13 documented as of this encounter
--- OUTSIDE RECORDS SUMMARY | 2025-03-28 15:55 | XMS_ITS | Encounter Summary ---
Author Organization [employer] Address [address] [facility] [address], [place] [address] Care Team Providers Care Visitor Services Assistant Name Role Phone Jordy Villeda MD Primary Care Provide r Encounter Details Date Type Department Care Team (Latest Contact Info) Description 08/02/2020 Abstract [facility] CONVERSIONS Dental, Provider, DDS Social History Tobacco Use Types Packs/Day Years Used Date Smoking Tobacco: Never Assessed Sex and Gender Information Value Date Recorded Sex Assigned at Male 02/23/2022 10:16 AM EDT Legal Sex Male 10:16 AM EDT Gender Identity Male 02/23/2022 10:16 AM EDT Sexual Orientation Straight 02/23/2022 10 :16 AM EDT documented as of this encounter Plan of Treatment Not on file documented as of this encounter Visit Diagnoses Not on filedocumented in this encounter Care Teams Visitor Services Assistant Relationship Specialty Start Date End Date Jordy Villeda MD [address] [place] [id number] PCP - General Internal Medicine 12/06/13 documented as of this encounter
--- OUTSIDE RECORDS SUMMARY | 2025-03-28 15:55 | XMS_ITS | Encounter Summary ---
Author Organization [employer] Address [address] [place] [address] Care Team Providers Care Washer Cutter Name Role Phone Jordy Villeda MD Primary Care Provide r Reason for Visit * Reason Comments Med Refill Encounter Details Date Type Department Care Team ([facility] st Contact Info) Description 05/30/[address] [facility] MEDICINE [address] [place], [place] [phone] Jordy Villeda MD [address] [place], [place] [phone] Mixed hyperlipidemia Social History Tobacco Use Types Packs/Day Years [...] documented as of this encounter Visit Diagnoses Diagnosis Mixed hyperlipidemia documented in this encounter Additional Health Concerns Assessment Noted Time PHQ-9 Depression Total Score: 14 023 11:47 AM EDT documented as of this encounter Care Teams Washer Cutter Relationship Specialty Start Date End Date Jordy Villeda MD [address] [place] [address] PCP - General Internal Medicine 12/06/13 documented as of this encounter
--- OUTSIDE RECORDS SUMMARY | 2025-03-28 15:55 | XMS_ITS | Encounter Summary ---
Author Organization [employer] Address [address] [facility] [address]t [place] [address] Care Team Providers Care Airbrush Artist Photography Name Role Phone Jordy Villeda MD Primary Care Provide r Reason for Visit * Reason Onset Date Comments Med Refill 05/09/2024 Encounter Details Date Type Department Care Team ([facility] Contact Info) Description 05/09/2024 Telephone [facility] MEDICINE [address] [place], [place] [phone] Jordy Villeda MD [address] [place], [place] [phone] Med Refill Social History Tobacco Use Types Packs/Day Years Used Date Smoking Tobacco: Some Days Cigarettes 0.3 20 Passive Smoke Exposure: Current Smokeless Tobacco: Never Alcohol Use Standard Drinks/Week Comments Yes 6 (1 standard drink = 0.6 oz pur e alcohol) social Alcohol Answer Date Recorded How often do you have a drink containing alcohol ? 2 10/20/2023 How many drinks containing a lcohol do you have on a typical day when you are drinking? 1 10/20/2023 Frequency of Binge Drinking Not on file 09/25 Depression Answer Date Recorded Patient Health Questionnaire-9 Score 3 01/04/2024 Patient Health Questionnaire-9 Score 3 01/04/2024 Last PHQ-9: Questionnaire Data Not on file 0 01/04/2024 Housing Stability Answer Date Recorded What is your housing situation today? I have monica bauman 12/09/[address] you li ve. Do you have problems with any of the following? None of the above 12/09/2023 Food Insecurity Answer Date Recorded Within the past 12 months, y ou worried that your food would run out before you got money to buy more: Never True 12/09/2023 Within the past 12 months,th e food you bought just didn't last and you didn't have enough money to get more: Never True Transportation Answer Date Recorded In the past 12 months, has l ack of transportation kept you from medical appts, meetings, work or from getting things needed for daily living? No 12/09/2023 Utilities Answer Date Recorded In the past 12 months, has t he electric, gas, oil or water company threatened to shut off services in your home? No 12/09/2023 Depression Answer Date Recorded Patient Health Questionnaire-2 Score 0 01/04/2024 Internet Access Answer Date Recorded Internet Access Q1 Yes 12/27/2023 Internet Access Q2 Not on file 12/27/2023 Sex and Gender Information Value Date Recorded Sex Assigned at Male 02/23/2022 10:16 AM EDT Legal Sex Male 10:16 AM EDT Gender Identity Male 02/23/2022 10:16 AM EDT Sexual Orientation Straight 02/23/2022 10 :16 AM EDT documented as of this encounter Miscellaneous Notes * Telephone Encounter - Jovanna Block - 05/09/2024 9:23 AM EST TC from pt requesting medication refill. Medications needing refill : traMADol (Ultram) 50 MG tablet To be sent to: [facility] documented in this encounter Plan of Treatment Not on file documented as of this encounter Visit Diagnoses Not on filedocumented in this encounter Additional Health Concerns Assessment Noted Time PHQ-9 Depression Total Score: 3 01/04/20 24 9:57 AM EDT documented as of this encounter Care Teams Airbrush Artist Photography Relationship Specialty Start Date End Date Jordy Villeda MD [address] [place] [id number] PCP - General Internal Medicine 12/06/13 documented as of this encounter
--- OUTSIDE RECORDS SUMMARY | 2025-03-28 15:55 | XMS_ITS | Encounter Summary ---
Author Organization [employer] Address [address] [facility] [address] [place] [address] Care Team Providers Care Insert Molding Operator Name Role Phone Jordy Villeda MD Primary Care Provide r Reason for Visit * Reason Onset Date Comments Med Refill 08/19/2023 Encounter Details Date Type Department Care Team ([facility] Contact Info) Description 08/19/2023 Telephone [facility] MEDICINE [address] [place], [place] [phone] Jordy Villeda MD [address] [place], [place] [phone] Med Refill Social History Tobacco Use Types [...] Telephone Encounter - Chelsea Koch LPN - 08/19/2023 9:35 AM EDT Medication pended to PCP. * Telephone Encounter - Laverne Smith - 08/19/2023 9:30 AM EDT TC from pt requesting medication refill. Medications needing refill : zolpidem (Ambien) 10 MG tablet To be sent to: [facility] - [place], [place] - [address] [facility] documented in this encounter Plan of Treatment Not on file documented as of this encounter Visit Diagnoses Not on filedocumented in this encounter Additional Health Concerns Assessment Noted Time PHQ-9 Depression Total Score: 14 023 11:47 AM EDT documented as of this encounter Care Teams Insert Molding Operator Relationship Specialty Start Date End Date Jordy Villeda MD [address] [facility] [place] [address] PCP - General Internal Medicine 12/06/13 documented as of this encounter
--- OUTSIDE RECORDS SUMMARY | 2025-03-28 15:55 | XMS_ITS | Encounter Summary ---
Author Organization [employer] Address [address] [facility] [address] [place] [address] Care Team Providers Care Rehabilitation Services Aide Name Role Phone Jordy Villeda MD Primary Care Provide r Reason for Visit * Reason Onset Date Comments Med Refill 01/07/2023 Encounter Details Date Type Department Care Team ([facility] st Contact Info) Description 01/07/2023 Telephone [facility] MEDICINE [address] [place], [place] [phone] Jordy Villeda MD [address] [place] [address] Med Refill Social History Tobacco Use Types Packs/Day Years Used Date Smoking Tobacco: Some Days Cigarettes 0.3 20 Passive Smoke Exposure: Never Smokeless Tobacco: Never Alcohol Use Standard Drinks/Week Comments Yes 6 (1 standard drink = 0.6 oz pur e alcohol) Socially Sex and Gender Information Value Date Recorded Sex Assigned at Male 02/23/2022 10:16 AM EDT Legal Sex Male 10:16 AM EDT Gender Identity Male 02/23/2022 10:16 AM EDT Sexual Orientation Straight 02/23/2022 10 :16 AM EDT documented as of this encounter Miscellaneous Notes * Telephone Encounter - Becka Coleman - 01/07/2023 2:23 PM EDT Tc from pt requesting med refill on traMADol (Ultram) 50 MG tablet Please sent to [facility] - [place], [place] - [address] [facility] documented in this encounter Plan of Treatment Not on file documented as of this encounter Visit Diagnoses Not on filedocumented in this encounter Care Teams Rehabilitation Services Aide Relationship Specialty Start Date End Date Jordy Villeda MD [address] [place] [id number] PCP - General Internal Medicine 12/06/13 documented as of this encounter
--- OUTSIDE RECORDS SUMMARY | 2025-03-28 15:55 | XMS_ITS | Clinical Summary ---
Author Organization [employer] Address [address] [facility] 7 [place] [address] Care Team Providers Care Presidential Support Specialist Name Role Phone Jordy Villeda MD Primary Care Provide r Allergies Active Allergy Reactions Criticality Noted Date Comments Hydromorphone 10/06/2022 Lisinopril 09/29/2013 Other reaction(s): JENNIFFER cough Morphine 07/19/2012 Medications * This document contains information received from the source organization and may not represent a complete record from that organization. albuterol (ProAir HFA) 108 (90 Base) MCG/ACT inhaler Inhale 2 puff as directed every six hours as needed 021 Active cholecalciferol (Vitamin D-3) 25 MCG (1000 UT) tablet take 1 tablet p.o. once/day 019 Active Naloxone HCl (NARCAN NA) Administer into affected nostril(s). [place] 0.1 milliliter by intranasal route in 1 nostril may repeat dose every 2-3 minutes as needed alternating nostrils with each dose 022 Active pen needle 31G x 8 mm miscIndications: 31 gauge x 5/16 Inject 1 each by subcutaneous route 2 times every day 021 Active lidocaine (Lidoderm) 5 % patchIndications :Back pain, unspecified back location, unspecified back pain laterality, unspecified chronicity APPLY 1 PATCH TOPICALLY TO SKIN, LEAVE ON FOR 12 HOURS AND OFF FOR 12 HOURS DIRECTED 30 patch 023 Active Continuous Glucose Improvement Auditor (FreeStyle Inez 2 [place]) deviceIndication s:Type 2 diabetes mellitus with diabetic polyneuropathy, with long-term current use of insulin (HCC) Scan sensor every 8 hours 1 each Active Continuous Glucose Sensor (FreeStyle Inez 2 Sensor) miscIndications: Type 2 diabetes mellitus with diabetic polyneuropathy, with long-term current use of insulin ([facility]) Apply 1 sensor every 14 days 2 each 3 Active glucagon 1 MG injection INJECT 1 MG SUBCUTANEOUSLY DIRECTED. MAY REPEAT IN 15 MINUTES NEEDED Active Gas Relief 80 MG chewable tablet CHEW 1 TABLET BY MOUTH 4 TIMES A DAY Active Blood Pressure Monitoring (Blood Pressure Cuff) misc 1 each 2 times daily. Use to check blood pressure at the same time everyday 1 each Active Alcohol Swabs (Alcohol Prep) pads Use 1 pad by to skin route 3 times every day 100 each 5 Active glucose blood (FREESTYLE LITE) test stripIndications :Type 2 diabetes mellitus with hyperglycemia ([facility]) Test 2 times/day 200 strip 5 Active Blood Glucose Monitoring Suppl (FreeStyle Lite) w/Device kit 1 Device Once per day. 1 kit Active TRUEplus Lancets 33G misc 1 each 2 times daily. 100 each 5 024 Active sildenafil (Viagra) 50 MG tablet Take 2 tablets (100 mg) by mouth if needed for erectile dysfunction. 10 tablet 3 Active insulin glargine (Lantus SoloStar) 100 UNIT/ML penIndications:T ype 2 diabetes mellitus with hyperglycemia ([facility]) Inject 46 Units under the skin at bedtime. 15 mL 2 025 Active omeprazole (PriLOSEC) [address] capsule TAKE 1 CAPSULE BY MOUTH EVERY DAY BEFORE BREAKFAST. DO NOT BREAK, CRUSH, DISSOLVE OR CHEW. 30 capsule 5 03/28/20 25 12:31 PM EST Active metFORMIN XR (Glucophage-XR) 500 MG 24 hr tabletIndication s:Type 2 diabetes mellitus with diabetic polyneuropathy, with long-term current use of insulin ([facility]) TAKE 2 TABLETS BY MOUTH TWICE DAILY IN THE MORNING AND IN THE EVENING WITH MEALS 360 tablet Active aspirin (Aspirin Adult Low Strength) 81 MG EC tabletIndication s:Type 2 diabetes mellitus with diabetic polyneuropathy, with long-term current use of insulin ([facility]) Take 1 tablet (81 mg) by mouth in the morning. 90 tablet 025 Active atorvastatin (Lipitor) 40 MG tabletIndication s:Mixed hyperlipidemia TAKE 1 TABLET BY MOUTH AT BEDTIME 90 tablet 1 025 Active escitalopram (Lexapro) 20 MG tabletIndication s:Anxiety state Take 1 tablet (20 mg) by mouth in the morning. 30 tablet 3 025 Active gabapentin (Neurontin) 300 MG capsuleIndicatio ns:Polyneuropath y due to type 2 diabetes mellitus (HCC) Take 1 capsule (300 mg) by mouth 2 times daily. 60 capsule 025 Active hydrOXYzine HCl (Atarax) 25 MG tabletIndication s:Obstructive sleep apnea syndrome Take 1 tablet (25 mg) by mouth at bedtime. 30 tablet 1 025 2025 Active losartan (Cozaar) 50 MG tabletIndication s:Benign hypertension Take 1 tablet (50 mg) by mouth in the morning. 90 tablet 3 025 Active propranolol LA (Inderal LA) 60 MG 24 hr capsuleIndicatio ns:Benign hypertension Take 1 capsule (60 mg) by mouth Once per day. 90 capsule 1 025 Active glipiZIDE XL (Glucotrol XL) 10 MG 24 hr tabletIndication s:Type 2 diabetes mellitus with hyperglycemia, unspecified whether longterm insulin use (HCC) Take 1 tablet (10 mg) by mouth with breakfast. Do not crush, chew, or split. 90 tablet 3 024 2024 Discontinued(T herapy completed) gabapentin (Neurontin) 300 MG capsuleIndicatio ns:Polyneuropath y due to type 2 diabetes mellitus (HCC) TAKE 1 CAPSULE BY MOUTH TWICE DAILY 60 capsule 024 2024 Discontinued(R eorder (will not trigger notification to Pharmacy)) escitalopram (Lexapro) 20 MG tabletIndication s:Anxiety state Take 1 tablet (20 mg) by mouth in the morning. 30 tablet 3 024 2024 Discontinued(R eorder (will not trigger notification to Pharmacy)) losartan (Cozaar) 50 MG tabletIndication s:Benign hypertension Take 1 tablet (50 mg) by mouth in the morning. 90 tablet 3 024 2024 Discontinued(R eorder (will not trigger notification to Pharmacy)) propranolol LA (Inderal LA) 60 MG 24 hr capsuleIndicatio ns:Benign hypertension Take 1 capsule (60 mg) by mouth Once per day. 90 capsule 1 024 2024 Discontinued(R eorder (will not trigger notification to Pharmacy)) atorvastatin (Lipitor) 40 MG tabletIndication s:Mixed hyperlipidemia TAKE 1 TABLET BY MOUTH AT BEDTIME 90 tablet 1 024 2024 Discontinued(R eorder (will not trigger notification to Pharmacy)) aspirin (Aspirin Adult Low Strength) 81 MG EC tabletIndication s:Type 2 diabetes mellitus with diabetic polyneuropathy, with long-term current use of insulin (HCC) Take 1 tablet (81 mg) by mouth in the morning. 90 tablet 024 2024 Discontinued(R eorder (will not trigger notification to Pharmacy)) metFORMIN XR (Glucophage-XR) 500 MG 24 hr tabletIndication s:Type 2 diabetes mellitus with diabetic polyneuropathy, with long-term current use of insulin (HCC) TAKE 2 TABLETS BY MOUTH TWICE DAILY IN THE MORNING AND IN THE EVENING WITH MEALS 360 tablet 2024 Discontinued(R eorder (will not trigger notification to Pharmacy)) hydrOXYzine HCl (Atarax) 25 MG tabletIndication s:Obstructive sleep apnea syndrome Take 1 tablet (25 mg) by mouth at bedtime. 30 tablet 1 025 2024 Discontinued(R eorder (will not trigger notification to Pharmacy)) Active Problems Problem Noted Date Diagnosed Date Left foot pain 03/01/2025 H/O acute pancreatitis 03/22/2024 Tobacco dependence 03/22/2024 Routine health maintenance 10/22/2023 Assessment & Plan (01/04/2024 8:24 AM EDT): -Colonoscopy: due for screening. Patient declines testing at this time, risk vs benefits of not undergoing testing discussed. -PSA: ordered -Hepatitis C Screen: patient declined at this time, discuss again at future visit -HIV Screen: patient declined at this time, discuss again at future visit -STI Screening: Declined -Vision Exam: encouraged to schedule appointment -Dental Care: encouraged to schedule appointment with dental home -Immunizations: discuss COVID, flu, PCV in the fall Assessment & Plan (10/25/2023 10:46 PM EDT): -Colonoscopy: due for screening. Patient is declined testing at this time, risk vs benefits of not undergoing testing discussed. -PSA: no indication for screening at this time -Hepatitis C Screen: patient declined at this time, discuss again at future visit -HIV Screen: patient declined at this time, discuss again at future visit -STI Screening: Declined -Vision Exam: encouraged to schedule appointment -Dental Care: encouraged to schedule appointment with dental home -Immunizations: discuss COVID, flu, PCV in the fall -initial BP reading elevated with normal recheck reading. Advised low salt diet and daily monitoring at home Current moderate episode of major depressive disorder without prior episode ([facility]) 01/12/2023 Assessment & Plan (03/01/2025 1:37 PM EST): Pt with Depression and anxiety He is on Escitalopram 20 mg daily. He reports compliance He met with out BHI team, but right now he is not seeing anyone. He has a job now feels happy Assessment & Plan (04/11/2024 12:53 PM EST): Pt with Depression and anxiety He is on Escitalopram 20 mg daily. He reports compliance He met with out BHI team, but right now he is not seeing anyone, he feels great, according to him he has a good job and everything at home is going well, so he feels like he is doing well and does not need to see a psychotherapist. Assessment & Plan (01/04/2024 11:35 AM EDT): Pt with persistent Depression and anxiety He is supposed to be on Escitalopram 20 mg daily. It is unclear if he is taking it or not He met with out BHI team Assessment & Plan (03/22/2023 12:31 PM EST): Pt reports that in the past 2 weeks he has experienced nervousness, been fidgety, unable to control worry, worrying about different things, difficulty relaxing, restlessness, irritability, irrational sense of fear. In addition he also reports anhedonia, hopelessness, depressed mood, difficulty sleeping, fatigued, decreased appetite, low self concept, guilt and difficultly concentrating. Denies SI/HI or perceptual disturbances at this time. Pt reports sx have been present nearly every day in the past 2 weeks and have impacted his psychosocial wellness. He identified housing issues as a main stressor. Provided psycho education around depression, anxiety and impact on both mental and physical health. We discussed treatment options and referrals. Patient ready to address current needs Yes Strengths include Desire to seek support PLAN: 1. Follow up with [facility]: Recommended for follow-up: [facility] Clinician Mercedes Dean to schedule BHI F/u 2. Patient goal is Reduce sxs 3. Behavioral Recommendations a. Referral to [facility] services for individual psychotherapy b. Follow up with [facility] provider Non-compliance 01/12/2023 Assessment & Plan (01/04/2024 10:18 AM EDT): Patient reports he was living in [place] and admits he was not taking care of himself as he should Housing instability 01/12/2023 Left carotid artery stenosis 07/21/2022 Assessment & Plan (04/11/2024 12:51 PM EST): Patient was seen at [facility] 07/08/2020 c/o headache, work up included a CTA of his head and neck. There was NO acute intracranial abnormality, but there was an incidental finding iof moderate stenosis ( approximately 60% luminal narrowing ) short segment stenosis of the left proximal ICA due to atherosclerotic plaque. No other significant vascular abnormality. Pt was referred to Vascular Surgeon to evaluate incidental finding. appointment was nicole in August, pt No showed Discussed with patient the need to do aggressive risk factor modification, tight glycemic control, Blood pressure control and cholesterol level as well as NO smoking Pt already takes 1 aspirin a day We had rescheduled his appointment for February 13, 2021, Pt promised not to miss it, but he still NO showed, Back in January 2022 another referral was sent Last visit he promised not to miss his appointment in August but once again he did not go Pt was referred again last visit, it appears he did not go once again, compliance is a big issue Today he is walking out of the office with appointment in his hand for 05/02/2024 Assessment & Plan (01/04/2024 8:19 AM EDT): Patient was seen at [facility] 07/08/2020 c/o headache, work up included a CTA of his head and neck. There was NO acute intracranial abnormality, but there was an incidental finding iof moderate stenosis ( approximately 60% luminal narrowing ) short segment stenosis of the left proximal ICA due to atherosclerotic plaque. No other significant vascular abnormality. Pt was referred to Vascular Surgeon to evaluate incidental finding. appointment was nicole in August, pt No showed Discussed with patient the need to do aggressive risk factor modification, tight glycemic control, Blood pressure control and cholesterol level as well as NO smoking Pt already takes 1 aspirin a day We had rescheduled his appointment for February 13, 2021, Pt promised not to miss it, but he still NO showed, Back in January 2022 another referral was sent Last visit he promised not to miss his appointment in August but once again he did not go Plan: will refer back today Assessment & Plan (01/12/2023 11:13 AM EDT): Patient was seen at [facility] 07/08/2020 c/o headache, work up included a CTA of his head and neck. There was NO acute intracranial abnormality, but there was an incidental finding iof moderate stenosis ( approximately 60% luminal narrowing ) short segment stenosis of the left proximal ICA due to atherosclerotic plaque. No other significant vascular abnormality. Pt was referred to Vascular Surgeon to evaluate incidental finding. appointment was nicole in August, pt No showed Discussed with patient the need to do aggressive risk factor modification, tight glycemic control, Blood pressure control and cholesterol level as well as NO smoking Pt already takes 1 aspirin a day We had rescheduled his appointment for February 13, 2021, Pt promised not to miss it, but he still NO showed, Back in January 2022 another referral was sent Last visit he promised not to miss his appointment in August but once again he did Assessment & Plan (07/21/2022 12:47 PM EDT): Patient was seen at [facility] 07/08/2020 c/o headache, work up included a CTA of his head and neck. There was NO acute intracranial abnormality, but there was an incidental finding iof moderate stenosis ( approximately 60% luminal narrowing ) short segment stenosis of the left proximal ICA due to atherosclerotic plaque. No other significant vascular abnormality. Pt was referred to Vascular Surgeon to evaluate incidental finding. appointment was nicole in August, pt No showed Discussed with patient the need to do aggressive risk factor modification, tight glycemic control, Blood pressure control and cholesterol level as well as NO smoking Pt already takes 1 aspirin a day We had rescheduled his appointment for February 13, 2021, Pt promised not to miss it, but he still NO showed, Back in January 2022 another referral was sent today, he again verbalized how important this is and promised not to miss it Erectile dysfunction due to diseases classified elsewhere 07/21/2022 Assessment & Plan (07/21/2022 9:59 AM EDT): Previous c/o difficulty obtaining erections when sexually active with partner. prescribed Viagra. Testosterone free and total ordered, not done Chronic low back pain 07/21/2022 Assessment & Plan (03/01/2025 4:01 PM EST): Pt with chronic low back pain with radiation to left leg In the past apparently did not feel PT was effective enough Plain films of his LS spine from 09/07/2018 showed: Probable transitional vertebral body segment with sacralization and degenerative change at the most inferior left transverse process/sacral articulation. Previously he was [facility]. He has been recommended to use the Diclofenac gel I have recommended he be seen again at [facility] Assessment & Plan (04/11/2024 12:49 PM EST): Pt with chronic low back pain with radiation to both legs Pt apparently did not feel PT was effective enough Plain films of his LS spine from 09/07/2018 showed: Probable transitional vertebral body segment with sacralization and degenerative change at the most inferior left transverse process/sacral articulation. Previously he was referred to [facility]. Uses Tramadol prn , today I discussed with him the need to wean him off Tramadol given his recent c/p abdominal pain, pancreatitis. Pt will lower the dose of the Tramadol to 1 tab po BID x 1 month then 1 tab po daily x 1 month then 1 tab every other day x 1 month. He has been recommended to use the Diclofenac gel Assessment & Plan (07/21/2022 10:00 AM EDT): Pt with persistent low back pain with radiation to both legs Pt apparently did not feel PT was effective enough Plain films of his LS spine from 09/07/2018 showed: Probable transitional vertebral body segment with sacralization and degenerative change at the most inferior left transverse process/sacral articulation. Previous visit he was referred to [facility], Uses Tramadol prn with good results Class 2 severe obesity due t o excess calories with serious comorbidity and body mass index (BMI) of 35.0 to 35.9 in adult 07/21/2022 Assessment & Plan (03/01/2025 1:19 PM EST): Patient has been counseled and educated about diet and exercise. Personal goal of weight loss discussedPatient has comorbidity of: DM, HTN, High Lipids Assessment & Plan (07/21/2022 11:08 AM EDT): Patient has been counseled and educated about diet and exercise. Personal goal of weight loss discussedPatient has comorbidity of: DM, HTN, High Lipids Polyneuropathy due to type 2 diabetes mellitus 1 05/31/2021 Assessment & Plan (07/21/2022 9:53 AM EDT): Pt previously reporting paresthesia of bilateral feet at night, worsening and no improvement with gabapentin 300mg BID. Likely form uncontrolled DM. TSH, RPR and B12 for completion of reversible causes of peripheral neuropathy. all came back within normal limits No longer on Gabapentin did not think it helped, instructed to try and improve BG control again. Right knee pain 03/30/2022 Assessment & Plan (03/01/2025 1:21 PM EST): Pt with c/o chronic right knee pain X-rays 03/14/2024 normal Previously I recommended ortho evaluation for consideration of steroid injection. He did not make appointment Used to be on Tramadol prn, He has been recommended to use the Diclofenac gel, Acetaminophen as well. Not a good candidate for NSAIDS Assessment & Plan (04/11/2024 12:50 PM EST): Recent x-rays 03/14/2024 normal Plan: ortho evaluation for consideration of steroid injection Uses Tramadol prn , today I discussed with him the need to wean him off Tramadol given his recent c/p abdominal pain, pancreatitis. Pt will lower the dose of the Tramadol to 1 tab po BID x 1 month then 1 tab po daily x 1 month then 1 tab every other day x 1 month. He has been recommended to use the Diclofenac gel, Acetaminophen as well. Not a good candidate for NSAIDS Mixed hyperlipidemia 05/01/2014 Assessment & Plan (03/01/2025 1:18 PM EST): Patient with elevated lipids. Lab Results Component Value Date TRIG 163 (H) 04/11/2024 TRIG 545 (H) 07/21/2022 CHOL 150 04/11/2024 LDLCHOLCAL 87 04/11/2024 HDL 31 (L) 04/11/2024 He is on a regimen of Atorvastatin 40 mg po q pm. . Plan: Pt reminded of the need to be compliant with his medications. Repeat Lipid profile advised to try to adhere to a low cholesterol diet, counseled and educated about diet and exercise, Patient encouraged to come up with a personal goal for weight loss. Assessment & Plan (04/11/2024 12:51 PM EST): Patient with elevated lipids. Lab Results Component Value Date TRIG 163 (H) 04/11/2024 TRIG 545 (H) 07/21/2022 CHOL 150 04/11/2024 LDLCHOLCAL 87 04/11/2024 HDL 31 (L) 04/11/2024 Trigs improved He is on a regimen of Atorvastatin 40 mg po q pm. . Plan: Pt reminded of the need to be compliant with his medications. advised to try to adhere to a low cholesterol diet, counseled and educated about diet and exercise, Patient encouraged to come up with a personal goal for weight loss. Assessment & Plan (01/04/2024 8:23 AM EDT): Patient with elevated lipids. Lab Results Component Value Date TRIG 545 (H) 07/21/2022 He is supposed to be on a regimen of Atorvastatin 40 mg po q pm, admits noncompliance . Plan: Pt reminded of the need to be compliant with his medications, repeat Lipid profile advised to try to adhere to a low cholesterol diet, counseled and educated about diet and exercise, Patient encouraged to come up with a personal goal for weight loss. Assessment & Plan (07/21/2022 9:56 AM EDT): Patient with elevated lipids. Most recent lipid profile from: 06/24/2020 shows a total cholesterol of: 190 triglycerides of: 268 HDL of: 27 and LDL of: 122 He is supposed to be on a regimen of Atorvastatin 40 mg po q pm, admits noncompliance . Plan: Pt reminded of the need to be compliant with his medications advised to try to adhere to a low cholesterol diet, counseled and educated about diet and exercise, Patient encouraged to come up with a personal goal for weight loss. Benign hypertension 06/16/2013 Assessment & Plan (03/01/2025 4:00 PM EST): Patient with Hypertension BP : stable He is supposed to be on a regimen of: Losartan 50 mg po daily, Inderal LA 60 mg po daily and Amlodipine Most recent electrolytes, Bun and Creatinine done on: Lab Results Component Value Date NA 137 04/11/2024 NA 133 (L) 01/24/2023 K 3.9 04/11/2024 K 4.0 01/24/2023 CL 105 04/11/2024 CL 99 01/24/2023 BUN 12 04/11/2024 BUN 9 01/24/2023 CREATININE 0.90 04/11/2024 CREATININE 1.01 01/24/2023 were wnl. Today will repeat patient advised to adhere to a low sodium diet, encouraged about medication compliance, counseled about weight loss I previously recommended a medbox he agreed, but never followed through. Assessment & Plan (04/11/2024 9:36 AM EST): Patient with Hypertension uncontrolled He is supposed to be on a regimen of: Losartan 50 mg po daily, Inderal LA 60 mg po daily and newly added Amlodipine Most recent electrolytes, Bun and Creatinine done on: 01/24/2023 were wnl. Today will repeat patient advised to adhere to a low sodium diet, encouraged about medication compliance, counseled about weight loss I recommended a medbox he agreed, but never followed through BMP ordered. Assessment & Plan (01/04/2024 11:35 AM EDT): Patient with Hypertension uncontrolled He is supposed to be on a regimen of: Losartan 50 mg po daily, and Inderal LA 60 mg po daily Most recent electrolytes, Bun and Creatinine done on: 01/24/2023 were wnl patient advised to adhere to a low sodium diet, encouraged about medication compliance, counseled about weight loss I recommended a medbox he agreed, but never followed through BMP ordered, 4 weeks follow up Assessment & Plan (01/12/2023 12:13 PM EDT): Patient with Hypertension uncontrolled I again explained again to patient how hypertension could potentially be deadly and he is putting himself at risk of serious medical problems such as heart attacks. myocardial infarcts or even , Pt verbalized understanding and promised to do better He is supposed to be on a regimen of: Losartan 50 mg po daily, Most recent electrolytes, Bun and Creatinine done on: 11/25/2022 were wnl Today I have added Inderal LA 60 mg po daily to see if this would also help with his anxiety patient advised to adhere to a low sodium diet, encouraged about medication compliance, counseled about weight loss I recommended a medbox he agreed, but never followed through 2 weeks follow up Assessment & Plan (07/21/2022 12:43 PM EDT): Patient with Hypertension uncontrolled I contacted Pharmacy who tells me he is not taking his Losartan I explained again to patient how hypertension could potentially be deadly and he is putting himself at risk of serious medical problems such as heart attacks. myocardial infarcts or even , Pt verbalized understanding and promised to do better He is supposed to be on a regimen of: Losartan 50 mg po daily, Most recent electrolytes, Bun and Creatinine done on: 05/28/2022 showed a Na 133 patient advised to adhere to a low sodium diet, encouraged about medication compliance, counseled about weight loss I recommended a medbox he agreed Type 2 diabetes mellitus wit h diabetic polyneuropathy, with long-term current use of insulin 10/11/2012 Assessment & Plan (03/01/2025 1:36 PM EST): Pt is here for a follow up DM today: uncontrolled He did not bring his glucometer. Hgb A1c 03/01/2025 : 13.3 from 9.7 He is supposed to be on Metformin XR 500 mg 2 tabs po BID, and Lantus 46 units sc q pm ( but it is unclear to me if he is compliant) He is telling me that he is only using 26 units subcutaneous qhs Microalbumin 04/11/2024 : 32 . Pt on ARB. Eye exam: done 04/2014 at [facility], [place] Pt on ASA 81 mg po daily Plan: Increase Lantus by 4 units every night until reaching 46 units again. Pt is to stay on the dose if his FBS goes below 100 2 weeks follow up Assessment & Plan (04/11/2024 9:48 AM EST): Pt is here for a follow up, previously admitted to Hospital with mild acute pancreatitis DM today: He did not bring his glucometer. Hgb A1c 04/11/2024: 9.7 from 9.9 from 11.1 He is supposed to be on Metformin XR 500 mg 2 tabs po BID, Glipizide ER 10 mg po daily and Lantus 40 units sc q pm (dosed lowered while in the hospital and supposed to be on a Humalog sliding scale, but he is not doing it Microalbumin 01/14/2021 : 4.4 . Pt on ARB. Ordered today Eye exam: done 04/2014 at [facility], [place] Pt on ASA 81 mg po daily Plan: Increase Lantus to 46 units subcutaneous q pm Pt's anxiety is preventing him from taking care of himself 3 months follow up Assessment & Plan (01/04/2024 11:34 AM EDT): Pt is here for a follow up, recently admitted to Hospital with mild acute pancreatitis DM today: uncontrolled, but improved He did not bring his glucometer. He has no insurance, a prescription sent to his pharmacy once his insurance is settled Hgb A1c 01/04/2024: 9.9 from 11.1 He is on Metformin XR 500 mg 2 tabs po daily ( I as under the impression he was taking it BID,bit he is not ), Glipizide ER 10 mg po daily. and Lantus 60 units sc q pm and supposed to be on a Humalog sliding scale, but he is not doing it He admits non compliance. Microalbumin 01/14/2021 : 4.4 . Pt on ARB. Eye exam: done 04/2014 at [facility], [place] Pt on ASA 81 mg po daily Plan: No changes until he brings his glucometer Pt's anxiety is preventing him from taking care of himself 4 weeks follow up Assessment & Plan (10/25/2023 10:45 PM EDT): -A1c above target goal of <7% POCT A1c 11.1% today -continue: glipizide XL 10 mg, metformin 500 mg SR, and lantus as prescribed -microalbumin: ordered today -foot exam: completed today without abnormal findings -dental: encouraged to set up an appointment -eye exam: encouraged to set up appointment -daily foot exams encouraged -low carb, low sugar diet and daily physical activity advised -orders placed for CGM to allow for monitoring -follow-up 3 months Assessment & Plan (01/12/2023 12:13 PM EDT): Here for a follow up Uncontrolled Hgb A1c 01/12/2023 13.3 Pt is not checking his blood sugars, reports he lost again his glucometer He has big compliance issues. He is supposed to be on Metformin XR 500 mg 2 tabs po BID, Glipizide ER 10 mg po daily. and Lantus 60 units sc q pm and supposed to be on a Humalog sliding scale.But he admits non compliance and Pharmacy today stated he is not taking the Metformin he is filling the glipizide and he has been erratic with the Insulin Microalbumin 01/14/2021 : 4.4 . Pt on ARB. Eye exam: done 04/2014 at [facility], [place] Pt on ASA 81 mg po daily Plan: No changes until he starts taking his medications as prescribed. Previously he was referred to [facility], Med box, sent refills on is meds, asked him to come back in one month with his glucometer, but due to his non compliance his diabetes is uncontrolled 2 weeks follow up Assessment & Plan (07/21/2022 12:46 PM EDT): Here for a follow up Hgb A1c 07/21/2022 14.5 Pt is not checking his blood sugars, repoerts he lost again his glucometer, uses his moms, but cannot tell me his readings He is not seeing a educator senior clinical at [facility] He has big compliance issues. He is supposed to be on Metformin XR 500 mg 2 tabs po BID, Glipizide ER 10 mg po daily. and Lantus 60 units sc q pm and supposed to be on a Humalog sliding scale.But he admits non compliance and Pharmacy today stated he is not taking the Metformin he is filling the glipizide and he has been erratic with the Insulin Microalbumin 01/14/2021 : 4.4 . Pt on ARB. Eye exam: done 04/2014 at [facility] Pt on ASA 81 mg po daily Plan: Hgb A1c reflects that pt is not taking his medications as prescribed. Will refer to [facility], Med box, sent refills on is meds, asked him to come back in one month with his glucometer Irritable bowel syndrome 05/31/2012 Obstructive sleep apnea syndrome 09/30/2011 Assessment & Plan (03/01/2025 1:37 PM EST): Sleep study indicative of severe SD Pt was prescribed a Cpap, pt tells me he was told he should get it soon Assessment & Plan (04/11/2024 9:31 AM EST): Pt referred for sleep study, did not go Anxiety 09/10/2011 Assessment & Plan (01/12/2023 12:14 PM EDT): Pt with persistent anxiety reports over eating due to anxiety, previously discussed relaxation techniques. Declined [facility] referral or visiting with a [facility] provider in clinic. Today met with our clinician He is supposed to be on Escitalopram 20 mg daily but today tells me he ran out Refill sent, will add a beta stacia Inderal LA 60 mg po daily to help with his HTN and may have an effect on his anxiety 2 weeks follow up Assessment & Plan (07/21/2022 12:42 PM EDT): Pt with persistent anxiety reports over eating due to anxiety, previously discussed relaxation techniques. Declined [facility] referral or visiting with a [facility] provider in clinic. He is on Escitalopram 20 mg daily Pharmacy reported he is taking it somewhat regularly Asthma 09/10/2011 Assessment & Plan (03/01/2025 1:24 PM EST): Uses ventolin PRN Depressive disorder 09/10/2011 Assessment & Plan (01/12/2023 11:14 AM EDT): Pt with persistent Depression and anxiety reports over eating due to anxiety, previously discussed relaxation techniques. In the past he declined [facility] referral or visiting with a provider in our clinic. He is on Escitalopram 20 mg daily. Diverticulitis of colon 09/10/2011 Resolved Problems Problem Noted Date Diagnosed Date Resolved Date Acute abdominal pain 01/20/2024 025 Assessment & Plan (01/20/2024 4:47 PM EDT): High suspicious of pancreatitis I reported the case to [facility] emergency room ERWIN Finn Patient decided to go by car to the hospital Hospital discharge follow-up 01/04/2024 03/01/2025 Assessment & Plan (04/11/2024 9:39 AM EST): Patient here for a follow up, recently admitted to Hospital from 01/21-01/22 presented for evaluation of epigastric pain. Tox screen and respiratory viral panel negative. Treated with simethicone, PPI and antacid. Unclear if symptoms were from GERD, gastroparesis or tramadol side effect. Recommended discontinuation of tramadol. Patient reported using tramadol for many years for left knee pain. Patient to follow up with PCP for ortho referral for intra-ocular steroid injection. Patient had an episode of hypoglycemia on admission, reported administering Lantus 50 units that morning and not eating afterwards. Hypoglycemia resolved after diet. Lantus reduced at discharge. BP on presentation was high at 174/112 mmhg. Required IV hydralazine and amlodipine was added to regimen. CXR showed new moderate pulmonary edema pattern, discharged on a few doses of furosemide. Assessment & Plan (01/04/2024 8:08 AM EDT): Pt is here for a HDF. Patient was admitted to [facility]. from 11/30- 12/03/2023 Patient presented with c/o abdominal pain with associated nausea and no vomiting. Work up in the ER showed a Lipase of 1651 u/l. CT abdomen/pelvis was suspicious for mild acute interstitial pancreatitis. Triglycerides were less than 300 mg/dl. He was treated with IVF, antiemetics and analgesia. Symptoms improved. His Glucose was on the lower side during hospital stay. Knee pain 07/18/2013 03/01/2025 Assessment & Plan (07/21/2022 10:01 AM EDT): Symptomatology suggestive of DJD, Discussed with pt need to lose weight, use proper fitting shoes, NSAIDS Pt was referred to [facility] who operated on him in the past for consideration of steroid injection Encounters Date Type Department Care Team Description 03/20/2025 Telephone [facility] [address] [facility] [place] [address] Jordy Villeda MD tb 03/20/2025 Telephone [facility] [address] [facility] [place] [address] Jordy Villeda MD No Show 03/15/2025 Telephone [facility] [address] [facility] [place] [address] Jordy Villeda MD Chart Prep 03/05/2025 Telephone [facility] [address] [facility] [place] [address] Georgina Escobar RN NTTS 03/01/2025 1:15 PM EST Office Visit [facility] [place] [address] Jordy Villeda MD Type 2 diabetes mellitus with diabetic polyneuropathy, with long-term current use of insulin (HCC) (Primary Dx); Benign hypertension; Mixed hyperlipidemia; Class 2 severe obesity due to excess calories with serious comorbidity and body mass index (BMI) of 35.0 to 35.9 in adult; Current moderate episode of major depressive disorder without prior episode (CMS/HCC) (HCC); Chronic pain of right knee; Obstructive sleep apnea syndrome; Mild intermittent asthma without complication; Anxiety state; Polyneuropathy due to type 2 diabetes mellitus ([facility]); Left foot pain; Chronic midline low back pain with bilateral sciatica; Encounter for immunization 03/01/2025 Travel 02/28/2025 Telephone [facility] [address] [place], [place] [id number] Karen Benavidez [place] 01/15/2025 Telephone [facility] [address] [place] [address] Jordy Villeda MD chart prep from Last 3 Months Immunizations Immunization Administration Dates Next Due Hep B, adult 01/23/2021,12/28/2018,11/11/2018 Influenza Whole 03/04/2006 Influenza injectable quadriv alent preservative free 01/23/2021,02/20/2020,01/26/2019,01/26,01/10/2015 Influenza, IIV3, injectable 05/01/2014, 2,01/07/2010 Influenza, Split (incl. priscilla fied surface antigen) 04/24/2013,01/22/2012 Influenza, seasonal, injecta ble, preservative free 03/01/2025,02/02/2024,01/10/2015 MMR 08/03/2014,06/07/2014 Moderna Covid-19 Vaccine 12+ 07/02/2021,09/13/19 21,08/15/2020 Moderna Covid-19 Vaccine 6+ Bivalent 05/20/2022 Pneumococcal Polysaccharide PPSV23 01/26,11/06/2014,04/24/2013,07/15 Td (adult), unspecified 10/13/2005 Tdap 07/14/2017,07/09/2009 Varicella 08/27/2014,06/07/2014 Family History Medical History Relation Name Comments Diabetes Mother Hypertension Mother Relation Name Status Comments Mother Social History Tobacco Use Types Packs/Day Years Used Date Smoking Tobacco: Some Days Cigarettes 0.3 20 Passive Smoke Exposure: Current Smokeless Tobacco: Never Tobacco Cessation:Ready to Q uit: Not Asked; Counseling Given: Not Answered Alcohol Use Standard Drinks/Week Comments Yes 6 [...] Answer Date Recorded Patient Health Questionnaire-9 Score 4 03/01/2025 Patient Health Questionnaire-9 Score 4 03/01/2025 Last PHQ-9: Questionnaire Data Not on file 1 05/01/2024 Housing Stability Answer Date Recorded What is your housing situation today? I do not have housing (Staying with others, in a hotel, in a jail, living outside on the street, on a beach, in a car, or in a park 03/01/[address] you li ve. Do you have problems with any of the following? I am not sure 03/01/2025 Food Insecurity Answer Date Recorded Within the past 12 months, y ou worried that your food would run out before you got money to buy more: Sometimes True 2024 Within the past 12 months,th e food you bought just didn't last and you didn't have enough money to get more: Often true 03/01/2025 Transportation Answer Date Recorded In the past 12 months, has l ack of transportation kept you from medical appts, meetings, work or from getting things needed for daily living? No 03/01/2025 Utilities Answer Date Recorded In the past 12 months, has t he electric, gas, oil or water company threatened to shut off services in your home? No 03/01/2025 Depression Answer Date Recorded Patient Health Questionnaire-2 Score 2 03/01/2025 Internet Access Answer Date Recorded Internet Access Q1 No 03/01/2025 Internet Access Q2 Not on file 03/01/2025 Sex and Gender Information Value Date Recorded Sex Assigned at Male 02/23/2022 10:16 AM EDT Legal Sex Male 10:16 AM EDT Gender Identity Male 02/23/2022 10:16 AM EDT Sexual Orientation Straight 02/23/2022 10 :16 AM EDT Last Filed Vital Signs Vital Sign Reading Time Taken Comments Blood Pressure 140/82 03/01/2025 1:16 PM EST Pulse 94 03/01/2025 1:16 PM EST Temperature 36.1 C (97 F) 03/01/2025 1:16 PM EST Respiratory Rate 16 03/01/2025 1:16 PM EST Oxygen Saturation 96% 03/01/2025 1:16 PM EST Inhaled Oxygen Concentration - - Weight 111 kg (244 lb) 03/01/2025 1:16 PM EST Height 177.8 cm (5' 10 ) 03/01/2025 1:16 PM EST Body Mass Index 35.01 03/01/2025 1:16 PM EST Plan of Treatment Health Maintenance Due Date Last Done Comments CT Colonography 1973 Colonoscopy 1973 Colorectal Cancer Screening 1973 FIT DNA/Cologuard 1973 FIT 1973 FOBT 1973 HIV Screening 1973 Sigmoidoscopy 1973 Eye Exam 07/23/1983 Family Planning (PISQ) 1988 Hepatitis C Screening 07/23/1991 Pneumococcal Vaccine: 50+ Years (2 of 2 - PCV) 01/27/2020 01/26/2019, 11/06/2014, 04/24/2013, Additional history exists Dental Oral Exam 11/25/2022 05/27/2022 RSV Patients and Patients Aged 60 years or older (1 - Risk 50-74 years 1-dose series) 07/23/2023 Zoster Vaccines (1 of 2) 07/23/2023 Dental Prophylaxis 07/12/2024 01/12/2024, 05/27/2022 Diabetes: Foot Exam 10/19/2024 10/20/2023, 10/20/2023, 10/20/2023, Additional history exists COVID-19 Vaccine ( season) 2024 08/12/2022, 05/20/2022, 07/02/2021, Additional history exists Dental X-Ray: Bitewings 01/12/2025 01/12/2024, 05/27 Diabetes: Urine Protein Screening 04/11/2025 04/11/2024, 06/28/2020, 06/15/2019 Lipid Panel 04/11/2025 04/11/2024, 06/25, 07/21/2022, Additional history exists Diabetes: Hemoglobin A1C 06/01/2025 025, 04/11/2024, 01/04/2024, Additional history exists Alcohol/Substance Use Screening 03/01/2026 03/01/2025 Depression Screening 03/01/2026 03/01/2025, 03/01/20 Disability Screening 03/01/2026 03/01/2025 SDOH Screening 03/01/2026 03/01/2025 Tobacco Screening 03/01/2026 03/01/2025 Dental X-Ray: Full Mouth 01/12/2027 01/12/2024 DTaP/Tdap/Td Vaccines (3 - Td or Tdap) 07/15/2027 07/14/2017, 07/09/2009, 10/13/2005 Hepatitis B Vaccines Completed 01/23/2021, 12/28/2018, 11/11/2018 Influenza Vaccine Completed 03/01/2025, , 01/23/2021, Additional history exists HIB Vaccines Aged Out No longer eligi ble based on patient's age to complete this topic HPV Vaccines Aged Out No longer eligi ble based on patient's age to complete this topic Hepatitis A Vaccines Aged Out No long er eligible based on patient's age to complete this topic IPV Vaccines Aged Out No longer eligi ble based on patient's age to complete this topic Meningococcal B Vaccine Aged Out No l onger eligible based on patient's age to complete this topic Meningococcal Vaccine Aged Out No parrish carmenza eligible based on patient's age to complete this topic RSV under 20 months Aged Out No longe r eligible based on patient's age to complete this topic Rotavirus Vaccines Aged Out No longer eligible based on patient's age to complete this topic Goals Goal Patient Goal Type Associated Problems Recent Progress Patient-Stated? Author Help patients manage their type 2 diabetes Care Plan Help patients manage their type 2 diabetes Batool Barbour MA Weekly blood pressure task Care Plan Weekly blood pressure task No Batool Krause MA Help patients manage their type 2 diabetes Care Plan Help patients manage their type 2 diabetes No Batool Krause MA Patient has chronic kidney disease Care Plan Patient has chronic kidney disease Batool Barbour MA Help patients manage their type 2 diabetes Care Plan Help patients manage their type 2 diabetes No Batool Krause MA Patient has diabetic neuropathy Care Plan Patient has diabetic neuropathy No Batool Krause MA Weekly blood pressure task Care Plan Weekly blood pressure task No Batool Krause MA Weekly blood pressure task Care Plan Weekly blood pressure task No Batool Krause MA Patient has chronic kidney disease Care Plan Patient has chronic kidney disease No Batool Krause MA Patient has chronic kidney disease Care Plan Patient has chronic kidney disease No Batool Krause MA Patient has diabetic neuropathy Care Plan Patient has diabetic neuropathy No Batool Krause MA Patient has diabetic neuropathy Care Plan Patient has diabetic neuropathy No Batool Krause MA Weekly blood pressure task Care Plan Weekly blood pressure task No Jordy Villeda MD Weekly blood pressure task Care Plan Weekly blood pressure task No Jordy Villeda MD Weekly blood pressure task Care Plan Weekly blood pressure task No Jordy Villeda MD Patient has chronic kidney disease Care Plan Patient has chronic kidney disease No Jordy Villeda MD Patient has chronic kidney disease Care Plan Patient has chronic kidney disease No Jordy Villeda MD Patient has chronic kidney disease Care Plan Patient has chronic kidney disease No Jordy Villeda MD Patient has diabetic neuropathy Care Plan Patient has diabetic neuropathy No Jordy Villeda MD Patient has diabetic neuropathy Care Plan Patient has diabetic neuropathy No Jordy Villeda MD Patient has diabetic neuropathy Care Plan Patient has diabetic neuropathy No Jordy Villeda MD Weekly blood pressure task Care Plan Weekly blood pressure task No Tianna Gibson Weekly blood pressure task Care Plan Weekly blood pressure task No Tianna Gibson Weekly blood pressure task Care Plan Weekly blood pressure task No Tianna Gibson Patient has chronic kidney disease Care Plan Patient has chronic kidney disease No Tianna Gibson Patient has chronic kidney disease Care Plan Patient has chronic kidney disease No Tianna Gibson Patient has chronic kidney disease Care Plan Patient has chronic kidney disease No Tianna Gibson Patient has diabetic neuropathy Care Plan Patient has diabetic neuropathy No Tianna Gibson Patient has diabetic neuropathy Care Plan Patient has diabetic neuropathy No Tianna Gibson Patient has diabetic neuropathy Care Plan Patient has diabetic neuropathy No GibsonTianna florez Weekly blood pressure task Care Plan Weekly blood pressure task No Tariq lBockessa Weekly blood pressure task Care Plan Weekly blood pressure task No Tariq Blockessa Weekly blood pressure task Care Plan Weekly blood pressure task No Umair, Corin Patient has chronic kidney disease Care Plan Patient has chronic kidney disease No Umair Corin Patient has chronic kidney disease Care Plan Patient has chronic kidney disease No Umair Corin Patient has chronic kidney disease Care Plan Patient has chronic kidney disease No Umair, Corin Patient has diabetic neuropathy Care Plan Patient has diabetic neuropathy No April Blocka Patient has diabetic neuropathy Care Plan Patient has diabetic neuropathy No April Blocka Patient has diabetic neuropathy Care Plan Patient has diabetic neuropathy No April Blocka Weekly blood pressure task Care Plan Weekly blood pressure task No Tanya Fair Weekly blood pressure task Care Plan Weekly blood pressure task No Tanya Fair Weekly blood pressure task Care Plan Weekly blood pressure task No Tanya Fair Patient has chronic kidney disease Care Plan Patient has chronic kidney disease No Tanya Fair Patient has chronic kidney disease Care Plan Patient has chronic kidney disease No Tanya Fair Patient has chronic kidney disease Care Plan Patient has chronic kidney disease No Tanya Fair Patient has diabetic neuropathy Care Plan Patient has diabetic neuropathy No Tanya Fair Patient has diabetic neuropathy Care Plan Patient has diabetic neuropathy No Tanya Fair Patient has diabetic neuropathy Care Plan Patient has diabetic neuropathy No LuigiuiTanya alcaraz Procedures Procedure Name Priority Date/Time Associated Diagnosis Comments POCT GLYCATED HEMOGLOBIN, TOTAL Routine 03/01/2025 1:18 PM EST Type 2 diabetes mellitus with diabetic polyneuropathy, with long-term current use of insulin ([facility]) POCT GLUCOSE Routine 03/01/2025 1:17 PM EST Type 2 diabetes mellitus with diabetic polyneuropathy, with long-term current use of insulin (HCC) ALBUMIN, RANDOM URINE W/CREATININE Routine 04/11/2024 10:20 AM EST Type 2 diabetes mellitus with diabetic polyneuropathy, with long-term current use of insulin ([facility]) LIPID PANEL, STANDARD Routine 04/11/2024 10:20 AM EST Type 2 diabetes mellitus with diabetic polyneuropathy, with long-term current use of insulin ([facility]) PROPHYLAXIS - ADULT Routine 01/12/2024 9 :00 AM EDT INTRAORAL - COMPLETE SERIES OF RADIOGRAPHIC IMAGES Routine 01/12/2024 9:00 AM EDT PERIODIC ORAL EVALUATION - ESTABLISHED PATIENT Routine 05/27/2022 1:30 PM EST from Last 3 Months or Most Recently Relevant to Health Maintenance Results * (ABNORMAL) POCT Hgb A1c (03/01/2025 1:18 PM EST) Hemoglobin A1C 13.3(A) 4.0 - 5.7 % QC Media Lot # [id number] Lot# Expiration Date 5,027 Blood 03/01/2025 1:18 PM EST us Jordy Sandoval MD POINT OF CARE TEST EN TER/EDIT ORDERABLES Final Result * POCT Glucose (03/01/2025 1:17 PM EST) Glucose Blood, POC 174 60 - 200 mg/dL QC Media Lot # [id number] Lot# Expiration Date 3,026 Blood Capillary blood specimen / Unknown 03/01/2025 1:17 PM EST us Jordy Sandoval MD POINT OF CARE TEST EN TER/EDIT ORDERABLES Final Result * Albumin, Random Urine W/Creatinine (04/11/2024 10:20 AM EST) Creatinine, Urine 303.31 mg/dL [facility] Microalbumin Urine 32.0 mg/L [facility] Microalbum Creatinine Ratio Ur 10.5 <30 ug/mg cr [facility] Comment:Albumin/Creatinine R atio Reference Ranges: Normal: < 30 ug/mg creatinine Microalbuminuria: 30 - 300 ug/mg creatinineClinical Albuminuria: > 300 ug/mg creatinine Urine (Urine, Random) 04/11/2024 10:20 AM EST 04/11/2024 11:19 AM EST Jordy Sandoval MD LAB URINE ORDERABLES Final Result Performing Organization Address City/[facility] Co de Phone Number [facility] [address] [place] [phone] * (ABNORMAL) Lipid Panel, Standard (04/11/2024 10:20 AM EST) Triglycerides 163(H) <150 mg/dL [facility] Comment:Desirable Triglyceri de: less than 150 mg/dLBorderline High Triglyceride 150-199 mg/dLHigh Triglyceride: 200-499 mg/dLVery High Triglyceride: greater than or equal to 5OO mg/dL Cholesterol 150 <200 mg/dL [facility] Comment:Desirable Cholestero l: less than 200 mg/dLBorderline High Cholesterol: 200-239 mg/dLHigh Cholesterol: greater than 239 mg/dL LDL Cholesterol Calculated 87 <100 mg/dL [facility] Comment:Desirable LDL: less than 100 mg/dLNear Optimal/Above Optimal LDL: 110- 129 mg/dLBorderline High LDL: 130-159 mg/dLHigh LDL: 160-189 mg/dLVery High LDL: greater than or equal to 190 mg/dL HDL Cholesterol 31(L) >40 mg/dL [facility] Comment:Desirable HDL: great er than 40 mg/dL Note: This HDL assay may give artificially low results in patients with liver disease. Blood Venous blood specimen / Unknown 04/11/2024 10:20 AM EST 04/11/2024 11:00 AM EST Jordy Sandoval MD LAB BLOOD ORDERABLES Final Result [facility] [address] [place] [address] [phone] from Last 3 Months or Most Recently Relevant to Health Maintenance Additional Health Concerns Active Problems Noted Date Diagnosed Date Help patients manage their type 2 diabetes 03/15 Weekly blood pressure task 03/15/2025 Help patients manage their type 2 diabetes 03/15 Patient has chronic kidney disease 03/15/2025 Help patients manage their type 2 diabetes 03/15 Patient has diabetic neuropathy 03/15/2025 Weekly blood pressure task 03/15/2025 Weekly blood pressure task 03/15/2025 Patient has chronic kidney disease 03/15/2025 Patient has chronic kidney disease 03/15/2025 Patient has diabetic neuropathy 03/15/2025 Patient has diabetic neuropathy 03/15/2025 Weekly blood pressure task 03/20/2025 Weekly blood pressure task 03/20/2025 Weekly blood pressure task 03/20/2025 Patient has chronic kidney disease 03/20/2025 Patient has chronic kidney disease 03/20/2025 Patient has chronic kidney disease 03/20/2025 Patient has diabetic neuropathy 03/20/2025 Patient has diabetic neuropathy 03/20/2025 Patient has diabetic neuropathy 03/20/2025 Weekly blood pressure task 03/20/2025 Weekly blood pressure task 03/20/2025 Weekly blood pressure task 03/20/2025 Patient has chronic kidney disease 03/20/2025 Patient has chronic kidney disease 03/20/2025 Patient has chronic kidney disease 03/20/2025 Patient has diabetic neuropathy 03/20/2025 Patient has diabetic neuropathy 03/20/2025 Patient has diabetic neuropathy 03/20/2025 Weekly blood pressure task 03/20/2025 Weekly blood pressure task 03/20/2025 Weekly blood pressure task 03/20/2025 Patient has chronic kidney disease 03/20/2025 Patient has chronic kidney disease 03/20/2025 Patient has chronic kidney disease 03/20/2025 Patient has diabetic neuropathy 03/20/2025 Patient has diabetic neuropathy 03/20/2025 Patient has diabetic neuropathy 03/20/2025 Weekly blood pressure task 03/20/2025 Weekly blood pressure task 03/20/2025 Weekly blood pressure task 03/20/2025 Patient has chronic kidney disease 03/20/2025 Patient has chronic kidney disease 03/20/2025 Patient has chronic kidney disease 03/20/2025 Patient has diabetic neuropathy 03/20/2025 Patient has diabetic neuropathy 03/20/2025 Patient has diabetic neuropathy 03/20/2025 Insurance [facility] C3 DENTAL-[facility] MEDICAID STAND ADULT Care Teams Presidential Support Specialist Relationship Specialty Start Date End Date Jordy Villeda MD [address] [place] [address] PCP - General Internal Medicine 12/06/13
--- OUTSIDE RECORDS SUMMARY | 2025-03-28 15:55 | XMS_ITS | Encounter Summary ---
Author Organization [employer] Address 75 [facility] 7t [place] [address] Care Team Providers Care Venetian Blind Maker Name Role Phone Jordy Villeda MD Primary Care Provide r Reason for Visit * Reason Onset Date Comments Nurse Triage 12/30/2022 Encounter Details Date Type Department Care Team ([facility] st Contact Info) Description 12/30/2022 Telephone [facility] MEDICINE 230 [place], [place] [phone] Jordy Villeda MD 230 [place], [place] [phone] Nurse Triage Social History Tobacco Use Types Packs/Day Years [...] encounter Miscellaneous Notes * Telephone Encounter - Jeana Bonilla RN - 12/30/2022 1:22 PM EDT called pt to triage, spoke to pt. pt states seen ER at [facility] for anxiety. pt reports worsening anxiety for several weeks now and needs follow up appt with PCP. pt states will need note for work gabriel feels he cannot go back to work for a few days. pt denies SI/HI/self harm or other associated severe symptoms. given appt to follow up with PCP on 01/12 at 11:00. will task to team for records. pt s dilma needs note for work, and advised can go to the walk in center and given hours and location. pt understands and agrees with plan. insurance verified. Protocol Used: Anxiety and Panic Attack (Adult) Protocol-Based Disposition: See in Office or Video Visit within 2 Weeks Video visit offer not recorded Positive Triage Question: * Symptoms of anxiety or panic attack and is a chronic symptom (recurrent or ongoing AND present > 4 weeks) * All higher-acuity triage questions were negative Care Advice Discussed: * Note to Triager - Anxiety Symptoms * Reassurance and Education - Anxiety * Anxiety - Healthy Lifestyle Tips * Avoid Caffeine * Avoid Triggers of Anxiety * Stress Reduction * Reasons To Call Back - Anxiety or panic attacks continue - You feel like harming yourself - You become worse * Telephone Encounter - Becka Coleman - 12/30/2022 11:43 AM EDT Symptom: Anxiety or Panic Attack Outcome: Schedule an urgent appointment (within 4 hours) or talk to a nurse or provider soon Reason: Anxiety keeps from normal daily activities (such as school or work) The caller accepted this outcome Please contact pt at [phone] documented in this encounter Plan of Treatment Not on file documented as of this encounter Visit Diagnoses Not on filedocumented in this encounter Care Teams Venetian Blind Maker Relationship Specialty Start Date End Date Jordy Villeda MD [address] [place] [phone] PCP - General Internal Medicine 12/06/13 documented as of this encounter
--- OUTSIDE RECORDS SUMMARY | 2025-03-28 15:55 | XMS_ITS | Encounter Summary ---
Author Organization [employer] Address 75 [facility] [address], [place] [address] Care Team Providers Care Zone Manager Name Role Phone Jordy Villeda MD Primary Care Provide r Encounter Details Date Type Department Care Team (Latest Contact Info) Description 02/01/2019 Abstract [facility] CONVERSIONS Dental, Provider, DDS Social History Tobacco [...] on filedocumented in this encounter Care Teams Zone Manager Relationship Specialty Start Date End Date Jordy Villeda MD [address] [place] [phone] PCP - General Internal Medicine 12/06/13 documented as of this encounter
--- OUTSIDE RECORDS SUMMARY | 2025-03-28 15:55 | XMS_ITS | Encounter Summary ---
Author Organization [employer] Address 75 [facility] 7 [place] [address] Care Team Providers Care Manager Training And Development Name Role Phone Jordy Villeda MD Primary Care Provide r Reason for Visit * Reason Onset Date Comments Med Refill 07/04/2024 Encounter Details Date Type Department Care Team ([facility] Contact Info) Description 07/04/2024 Telephone [facility] MEDICINE 230 [place], [place] [phone] Jordy Villeda MD 230 [place], [place] [phone] Med Refill Social History Tobacco Use Types [...] * Telephone Encounter - Jovanna Block - 07/04/2024 10:05 AM EDT TC from pt requesting medication refill. Medications needing refill : traMADol (Ultram) 50 MG tablet To be sent to: [facility] documented in this encounter Plan of Treatment Not on file documented as of this encounter Visit Diagnoses Not on filedocumented in this encounter Additional Health Concerns Assessment Noted Time PHQ-9 Depression Total Score: 3 01/04/20 24 9:57 AM EDT documented as of this encounter Care Teams Manager Training And Development Relationship Specialty Start Date End Date Jordy Villeda MD [address] [place] [id number] PCP - General Internal Medicine 12/06/13 documented as of this encounter
--- OUTSIDE RECORDS SUMMARY | 2025-03-28 15:55 | XMS_ITS | Clinical Summary ---
Author Organization 175 [facility] Address [address] [place] [address] Phone Care Team Providers Care Multi Care Technician Name Role Phone Jordy Jo MD Primary Care Provi pablito Social History Tobacco Use Types Packs/Day Years Used Date Smoking Tobacco: Never Assessed Sex and Gender Information Value Date Recorded Sex Assigned at Not on file Legal Sex Male 2:00 AM EST Gender Identity Not on file Sexual Orientation Not on file Plan of Treatment Health Maintenance Due Date Last Done Comments Colorectal Cancer Screening: Colonoscopy 1973 DTaP,Tdap,and Td Vaccines (1 - Tdap) 1992 Hepatitis B Vaccines (1 of 3 - 19+ 3-dose series) 1992 Cholesterol Screening (Lipid Panel) 03/29/2022 HIV Screening 03/29/2022 Hepatitis C Screening 03/29/2022 Social Influencers of Health Screening 03/29/2022 Pneumococcal Vaccine: 50+ Ye ars (1 of 1 - PCV) 07/23/2023 Zoster Vaccines (1 of 2) 07/23/2023 Depression Screening 04/26/2024 COVID-19 Vaccine ( - 2024-2 6 season) 2024 Influenza Vaccine (#1) 2024 RSV Immunization Adult Patie nts (1 - 1-dose 75+ series) 2048 HIB Vaccines Aged Out No longer eligi [...] on patient's age to complete this topic MMR Vaccines Aged Out No longer eligi ble based on patient's age to complete this topic Meningococcal ACWY Vaccine Aged Out N o longer eligible based on patient's age to complete this topic Meningococcal B Vaccine Aged Out No l onger eligible based on patient's age to complete this topic RSV Immunization Patients Un pablito 20 months Aged Out No longer eligible b ased on patient's age to complete this topic Varicella Vaccines Aged Out No longer eligible based on patient's age to complete this topic Insurance [place]ICAID - [place] Advance Directives Documents on File Type Date Recorded Patient Hot Top Liner Expl anation Health Care Decision (hx) 12/06/2022 HE ALTH CARE PROXY Health Care Decision (hx) 12/06/2022 HE ALTH CARE PROXY Health Care Decision (hx) 12/06/2022 HE ALTH CARE PROXY Health Care Decision (hx) 12/06/2022 HE ALTH CARE PROXY Care Teams Multi Care Technician Relationship Specialty Start Date End Date Jordy Jo MD [address] [place] [address] PCP - General 08/14/14
--- OUTSIDE RECORDS SUMMARY | 2025-03-28 15:56 | XMS_ITS | Encounter Summary ---
Author Organization [employer] Address [address] [place] [address] 7 [place] [address] Care Team Providers Care Industrial Hygiene Engineer Name Role Phone Jordy Villeda MD Primary Care Provide r Reason for Visit * Reason Comments Med Refill Encounter Details Date Type Department Care Team (Late st Contact Info) Description 09/04/2022 Refill [facility] MEDICINE 230 [place], [place] [phone] Jodry Villeda MD 230 [place], [place] [phone] Primary insomnia; Pain Social History Tobacco Use Types Packs/Day Years [...] as of this encounter Visit Diagnoses Diagnosis Primary insomnia Persistent disorder of initiating or maintaining sleep Pain Generalized pain documented in this encounter Care Teams Industrial Hygiene Engineer Relationship Specialty Start Date End Date Jordy Villeda MD 230 [place], [place] [phone] PCP - General Internal Medicine 12/06/13 documented as of this encounter
--- OUTSIDE RECORDS SUMMARY | 2025-03-28 15:56 | XMS_ITS | Encounter Summary ---
Author Organization [employer] Address [address] [facility] [address] 7t [place] [address] Care Team Providers Care Local Government Legislator Name Role Phone Jordy Villeda MD Primary Care Provide r Reason for Visit * Reason Comments Med Refill Encounter Details Date Type Department Care Team ([facility] st Contact Info) Description 11/09/2023 Refill [facility] MED & PEDS [address] [place], [place] [phone] Jordy Villeda MD 230 [place] [address] Pain Social History Tobacco Use Types Packs/Day Years Used Date Smoking Tobacco: Some Days Cigarettes 0.3 20 Passive Smoke Exposure: Current Smokeless Tobacco: Never Alcohol Use Standard Drinks/Week Comments Never 6 (1 standard drink = 0.6 oz pur e alcohol) Alcohol Answer Date Recorded How often do [...] as of this encounter Visit Diagnoses Diagnosis Pain Generalized pain documented in this encounter Additional Health Concerns Assessment Noted Time PHQ-9 Depression Total Score: 14 023 11:47 AM EDT documented as of this encounter Care Teams Local Government Legislator Relationship Specialty Start Date End Date Jordy Villeda MD [address] [place] [address] PCP - General Internal Medicine 12/06/13 documented as of this encounter
--- OUTSIDE RECORDS SUMMARY | 2025-03-28 15:56 | XMS_ITS | Encounter Summary ---
Author Organization [employer] Address [address] [facility] [address] 7t [place] [address] Care Team Providers Care Platform Loader Name Role Phone Jordy Villeda MD Primary Care Provide r Reason for Visit * Reason Comments Med Refill Encounter Details Date Type Department Care Team ([facility] st Contact Info) Description 03/17/2024 Refill [facility] MEDICINE 230 [place], [place] [phone] Jordy Villeda MD 230 [place], [place] [phone] Gastro-esophageal reflux disease without esophagitis Social History Tobacco Use Types Packs/Day Years [...] as of this encounter Visit Diagnoses Diagnosis Gastro-esophageal reflux disease without esophagitis documented in this encounter Additional Health Concerns Assessment Noted Time PHQ-9 Depression Total Score: 3 01/04/20 24 9:57 AM EDT documented as of this encounter Care Teams Platform Loader Relationship Specialty Start Date End Date Jordy Villeda MD [address] [place] [address] PCP - General Internal Medicine 12/06/13 documented as of this encounter
--- OUTSIDE RECORDS SUMMARY | 2025-03-28 15:56 | XMS_ITS | Encounter Summary ---
Author Organization [employer] Address 75 [facility] 7t [place] [address] Care Team Providers Care Wool Hat Forming Machine Tender Name Role Phone Jordy Villeda MD Primary Care Provide r Reason for Visit * Reason Onset Date Comments Nurse Triage 03/06/2024 Encounter Details Date Type Department Care Team ([facility] Contact Info) Description 03/06/2024 Telephone [facility] MEDICINE 230 [place], [place] [phone] Jordy Villeda MD 230 [place] [address] Nurse Triage Social History Tobacco Use Types [...] the past 12 months, has t he [employer], gas, oil or water [employer] threatened to shut off services in your [...] encounter Miscellaneous Notes * Telephone Encounter - Monica Moran RN - 03/06/2024 4:01 PM EST Called pt. Back, no answer. Left message on pt. Voicemail to call back [facility] nurses at [phone]. Also advised that if needs to be seen today , the [facility] walk in on the first floor is open until 730pm. Called back x2. Went straight to voicemail. Did not leave second message. RE: Leg pain. * Telephone Encounter - Melissa Young - 03/06/2024 3:55 PM EST Tc from pt returning call. * Telephone Encounter - Memo Mahajan - 03/06/2024 3:22 PM EST Symptom: Leg Pain - Not From Injury Outcome: Schedule an urgent appointment (within 1 hour) or talk to a nurse or provider soon Reason: Severe pain now The caller accepted this outcome. Contact [phone] documented in this encounter Plan of Treatment Not on file documented as of this encounter Visit Diagnoses Not on filedocumented in this encounter Additional Health Concerns Assessment Noted Time PHQ-9 Depression Total Score: 3 01/04/20 24 9:57 AM EDT documented as of this encounter Care Teams Wool Hat Forming Machine Tender Relationship Specialty Start Date End Date Jordy Villeda MD 230 [place] [address] PCP - General Internal Medicine 12/06/13 documented as of this encounter
--- OUTSIDE RECORDS SUMMARY | 2025-03-28 15:56 | XMS_ITS | Encounter Summary ---
Author Organization [employer] Address 75 [facility] 7t [place] [address] Care Team Providers Care Clay Artist Name Role Phone Jordy Villeda MD Primary Care Provide r Reason for Visit * Reason Comments Med Refill Encounter Details Date Type Department Care Team (Late st Contact Info) Description 11/11/2023 Refill [facility] CHC MED & PEDS [address] [place], [place] [phone] Malissa Mane MD [address] [place] [address] Primary insomnia Social History Tobacco Use Types Packs/Day Years [...] Persistent disorder of initiating or maintaining sleep documented in this encounter Additional Health Concerns Assessment Noted Time PHQ-9 Depression Total Score: 14 023 11:47 AM EDT documented as of this encounter Care Teams Clay Artist Relationship Specialty Start Date End Date Jordy Villeda MD [address] [place] [phone] PCP - General Internal Medicine 12/06/13 documented as of this encounter
--- OUTSIDE RECORDS SUMMARY | 2025-03-28 15:56 | XMS_ITS | Encounter Summary ---
Author Organization [employer] Address 75 [facility] 7t [place] [address] Care Team Providers Care Aging Department Supervisor Name Role Phone Jordy Villeda MD Primary Care Provide r Reason for Visit * Reason Onset Date Comments Med Refill 03/17/2024 Encounter Details Date Type Department Care Team ([facility] Contact Info) Description 03/17/[address] [facility] MEDICINE 230 [place], [place] [phone] Jordy Villeda MD 230 [place] [address] Med Refill Social History Tobacco Use Types [...] the past 12 months, has t he [employer], gas, oil or water company threatened to [...] Telephone Encounter - Chelsea Koch LPN - 03/17/2024 1:20 PM EST Medication was discontinued. * Telephone Encounter - Aura Lenz - 03/17/2024 1:08 PM EST TC from pt requesting medication refill. Medications needing refill : omeprazole (PriLOSEC) [address] capsule To be sent to: [facility] - [place], [place] - [address] documented in this encounter Plan of Treatment Not on file documented as of this encounter Visit Diagnoses Not on filedocumented in this encounter Additional Health Concerns Assessment Noted Time PHQ-9 Depression Total Score: 3 01/04/20 24 9:57 AM EDT documented as of this encounter Care Teams Aging Department Supervisor Relationship Specialty Start Date End Date Jordy Villeda MD [address] [place] [address] PCP - General Internal Medicine 12/06/13 documented as of this encounter
--- OUTSIDE RECORDS SUMMARY | 2025-03-28 15:56 | XMS_ITS | Encounter Summary ---
Author Organization [employer] Address 75 [facility] 7 [place] [address] Care Team Providers Care S Iron Worker Name Role Phone Jordy Villeda MD Primary Care Provide r Reason for Visit * Reason Comments Med Refill Encounter Details Date Type Department Care Team (Late st Contact Info) Description 09/04/2022 Refill [facility] MEDICINE [address] [place], [place] [phone] Saadia Valdez MD 230 [place], [place] [phone] Social History Tobacco Use Types Packs/Day Years [...] on filedocumented in this encounter Care Teams S Iron Worker Relationship Specialty Start Date End Date Jordy Villeda MD [address] [place], [place] [phone] PCP - General Internal Medicine 12/06/13 documented as of this encounter
--- OUTSIDE RECORDS SUMMARY | 2025-03-28 15:56 | XMS_ITS | Encounter Summary ---
Author Organization [employer] Address 75 [facility] 7 [place] [address] Care Team Providers Care Amalgamator Name Role Phone Jordy Villeda MD Primary Care Provide r Reason for Visit * Reason Onset Date Comments Created In Error 03/17/2024 Results 03/17/2024 Encounter Details Date Type Department Care Team ([facility] Contact Info) Description 03/17/2024 Telephone [facility] MEDICINE 230 [place], [place] [phone] Jordy Villeda MD 230 [place] [address] Created In Error ; Results Social History Tobacco Use Types Packs/Day Years [...] encounter Miscellaneous Notes * Telephone Encounter - Ninoska Swartz RN - 03/27/2024 8:57 AM EST Telephone call to pt to advise of below message regarding negative H Pylori breath test. No answer,left voicemail to call back. Will route to call again. * Telephone Encounter - Ninoska Swartz RN - 03/27/2024 8:56 AM EST ----- Message from Dante Zendejas MD sent at 03/26/2024 2:19 PM EST ----- Please notify Delfino that his H pylori breath test was negative. Thanks. Martel documented in this encounter Plan of Treatment Not on file documented as of this encounter Visit Diagnoses Not on filedocumented in this encounter Additional Health Concerns Assessment Noted Time PHQ-9 Depression Total Score: 3 01/04/20 24 9:57 AM EDT documented as of this encounter Care Teams Amalgamator Relationship Specialty Start Date End Date Jordy Villeda MD [address] [place] [address] PCP - General Internal Medicine 12/06/13 documented as of this encounter
--- OUTSIDE RECORDS SUMMARY | 2025-03-28 15:56 | XMS_ITS | Encounter Summary ---
Author Organization [employer] Address [address] [facility] [address] 7t [place] [address] Care Team Providers Care Vp Integrity Name Role Phone Jordy Villeda MD Primary Care Provide r Reason for Visit * Reason Onset Date Comments Reschedule 11/30/2023 Encounter Details Date Type Department Care Team ([facility] Contact Info) Description 11/30/2023 Telephone [facility] MEDICINE 230 [place], [place] [phone] Jordy Villeda MD [address] [place], [place] [phone] Reschedule Social History Tobacco Use Types Packs/Day Years [...] encounter Miscellaneous Notes * Telephone Encounter - Laverne Smith - 11/30/2023 10:09 AM EDT Tc from pt requesting r/s BIG DATA ENGINEER appt documented in this encounter Plan of Treatment Not on file documented as of this encounter Visit Diagnoses Not on filedocumented in this encounter Additional Health Concerns Assessment Noted Time PHQ-9 Depression Total Score: 14 023 11:47 AM EDT documented as of this encounter Care Teams Vp Integrity Relationship Specialty Start Date End Date Jordy Villeda MD [address] [place] [address] PCP - General Internal Medicine 12/06/13 documented as of this encounter
--- OUTSIDE RECORDS SUMMARY | 2025-03-28 15:56 | XMS_ITS | Encounter Summary ---
Author Organization [employer] Address 75 [facility] 7t [place] [address] Care Team Providers Care Cage Loader Name Role Phone Jordy Villeda MD Primary Care Provide r Reason for Visit * Reason Comments Med Refill Encounter Details Date Type Department Care Team ([facility] st Contact Info) Description 07/03/2022 Refill [facility] MEDICINE 230 [place], [place] [phone] Jordy Villeda MD [address] [place] [address] Chronic knee pain, unspecified laterality; Primary insomnia Social History Tobacco Use Types Packs/Day Years Used Date Smoking Tobacco: Some Days Cigarettes 0.3 20 Passive Smoke Exposure: Never Smokeless Tobacco: Never Alcohol Use Standard Drinks/Week Comments Yes 6 (1 standard drink = 0.6 oz pur e alcohol) Sex and Gender Information Value Date Recorded Sex Assigned at Male 02/23/2022 10:16 AM EDT Legal Sex Male 10:16 AM EDT Gender Identity Male 02/23/2022 10:16 AM EDT Sexual Orientation Straight 02/23/2022 10 :16 AM EDT COVID-19 Exposure Response Date Recorded In the last 10 days, have yo u been in contact with someone who was confirmed or suspected to have Coronavirus/COVID-19? No / Unsure 07/06/2022 12:01 PM EDT documented as of this encounter Plan of Treatment Not on file documented as of this encounter Visit Diagnoses Diagnosis Chronic knee pain, unspecified laterality Primary insomnia Persistent disorder of initiating or maintaining sleep documented in this encounter Care Teams Cage Loader Relationship Specialty Start Date End Date Jordy Villeda MD [address] [place] [address] PCP - General Internal Medicine 12/06/13 documented as of this encounter
--- OUTSIDE RECORDS SUMMARY | 2025-03-28 15:56 | XMS_ITS | Encounter Summary ---
Author Organization [email or web address] Address [address] [facility] [address] 7t [place] [address] Care Team Providers Care Sock Drier Name Role Phone Jordy Villeda MD Primary Care Provide r Encounter Details Date Type Department Care Team ([facility] st Contact Info) Description 07/06/2022 Abstract [facility] [address] [place] [phone] Jordy Villeda MD [address] [place] [address] [phone] Social History Tobacco Use Types Packs/Day Years [...] on filedocumented in this encounter Care Teams Sock Drier Relationship Specialty Start Date End Date Jordy Villeda MD [address] [place] [phone] PCP - General Internal Medicine 12/06/13 documented as of this encounter
[2025-03-28 16:40] LABS: Alanine Aminotransferase 61 U/L (0-40); Albumin Level 4.5 g/dL (3.5-5.0); Alkaline Phosphatase 77 U/L (39-117); Anion Gap 13 (12-20); Aspartate Amino Transferase 54 U/L (5-37); Blood Urea Nitrogen 15 mg/dL (9-16); Calcium 10.5 mg/dL (8.4-10.2); Carbon Dioxide 26 mmol/L (22-29); Chloride 101 mmol/L (96-108); Cholesterol 202 mg/dL (<200); Estimated Glomerular Filt Rate > 60; HDL Cholesterol 30 mg/dL (>40); Lipase 45 U/L (8-78); Potassium 4.7 mmol/L (3.3-5.1); Sodium 135 mmol/L (135-145); Total Protein 8.0 g/dL (6.5-8.0); Triglycerides 218 mg/dL (<150)
[2025-03-31 10:34] LABS: TS Negative Control Passed; TS Panel A 0; TS Panel B 0; TS Positive Control Passed; TSpotTB Negative (Negative)
== END 2025-03-28 13:22 | disposition home or self-care (01) ==
LOC: HO.HHCL 13:21
PROVIDERS: PCP Internal Medicine; Visit Provider Internal Medicine
DX: Z11.1 Encounter for screening for respiratory tuberculosis (principal); E11.42 Type 2 diabetes mellitus with diabetic polyneuropathy; I10 Essential (primary) hypertension; Z79.4 Long term (current) use of insulin
CPT/HCPCS: 36415; 80053; 80061; 83690; 86481

== ENCOUNTER 2025-04-05 10:52 | Emergency (ER) | payer MEDICAID, SELFPAY ==
--- NOTE | ~2025-04-05 | XR_ITS ---
EXAMINATION: XR CHEST 2 VIEWS HISTORY: CP COMPARISON: Comparison is made with the prior examination dated 01/24/2023. FINDINGS: PA and lateral views of the chest are submitted. The lungs are expanded and clear. There is no pleural effusion, pneumothorax, or pulmonary vascular congestion. The heart is normal in size. There is degenerative disc disease of the spine. XR/XR chest 2V IMPRESSION: No acute cardiopulmonary abnormality. Electronically signed by: Williams Nova MD 04/05/2025 12:03 PM [facility]
[2025-04-05 11:26] VITALS: BP 166/108; PULSE 98; RESP 16; TEMP 36.6; O2SAT 99; BMI 33.5
--- NOTE | 2025-04-05 11:26 | ED_ITS ---
HPI - Back Pain/Injury General Chief Complaint: Back Pain/Injury Stated Complaint: back pain Time Seen by Provider: 04/05/25 12:52 Source: patient Mode of arrival: ambulatory Limitations: no limitations History of Present Illness ED Provider: Renee Germain PA-C HPI Narrative: Patient is a 49 year old male with a history of HTN and DM presenting to the emergency department today with low back pain that radiates into his leg and left sided neck pain that radiates into his shoulder. Patient states that over the last 2 months he has been having intermittent issues with low back pain that radiates into his right leg and left sided neck pain that radiates into his left shoulder. Patient states that he has not seen a specialist for this. Patient denies any trauma. Patient denies any saddle anesthesia or any issues with bladder / bowel function. Patient denies any other complaints at this time. Related Data Previous Rx's ?Medication ?Instructions ?Recorded cyclobenzaprine 10 mg tablet 10 mg PO TID PRN muscle s pasm #8 04/15/20 tabs lidocaine 5 % topical patch 1 patch topical DAILY #15 ea 04/15/20 (Lidoderm) cephalexin 500 mg tablet 500 mg PO QID 7 days #28 tab s 09/15/21 cyclobenzaprine 5 mg tablet 5 mg PO TID PRN spasm 7 da ys #21 04/05/25 tabs naproxen 500 mg tablet 500 mg PO BID 7 days #14 tab s 04/05/25 prednisone 20 mg tablet 40 mg (2 x 20 mg) PO DAILY C OPD 04/05/25 exacerbation 5 days #10 tabs Allergies Allergy/AdvReac Type Severity Reaction Status Date / Time morphine (MORPHINE) Allergy Unknown CHEST PAIN Verified 04/05/25 11:28 Review of Systems 2 Constitutional: Constitutional: Reports as per HPI Eyes: Eyes: Reports as per HPI ENT: Reports as per HPI Cardiovascular: Cardiovascular: Reports as per HPI Respiratory: Respiratory: Reports as per HPI Gastrointestinal: Gastrointestinal: Reports as per HPI Genitourinary: Genitourinary: Reports as per HPI Musculoskeletal: Musculoskeletal: Reports as per HPI Integumentary/Breasts: Skin/Breast: Reports as per HPI Neurologic: Reports as per HPI Psychiatric: Psychiatric: Reports as per HPI Endocrine: Endocrine: Reports as per HPI Hematologic/Lymphatic: Hematologic/Lymphatic: Reports as per HPI Allergic/Immunologic: Allergic/Immunologic: Reports as per HPI [facility] Past Medical History Attestation statement: The following information was validated with the patient. Source: old records reviewed and nursing notes reviewed Medical History HTN (hypertension) IDDM (insulin dependent diabetes mellitus) Social History Social History Alcohol intake: never Advance Directives: No Advance Directives Information Provided: Yes Physical Exam 2 Vital Signs: Vital Signs: Last Vital Signs Temp 98 F 04/05/25 13:44 Pulse 98 04/05/25 13:44 Resp 16 04/05/25 13:44 BP 166/108 H 04/05/25 13:44 Pulse Ox 99 04/05/25 13:44 O2 Del Method Room Air 04/05/25 13:44 BMI result Body Mass Index 33.5 Const: General: cooperative, no acute distress, alert and awake Nutritional Appearance: well nourished Orientation/consciousness: patient oriented x3 HEENT: Head: Yes normal to inspection and Yes atraumatic Ears: hearing grossly normal bilaterally and external ears normal General nose exam: Normal external nose present, no nasal discharge noted and no epistaxis Face and sinus: Yes normal facial exam, No abrasion and No laceration Mouth: Normal oral and palatal mucosa present, no drooling and no muffled voice Eyes: General: appearance normal, both eyes and all related structures P eriorbital: periorbital findings normal Eyelids: Yes eyelids normal C onjunctivae: conjunctivae normal Pupils: Equal, round and reactive pupils present EOM: EOMs intact bilaterally Neck: Neck: Yes normal visual inspection and Yes full ROM Resp: Effort & Inspection: normal respiratory effort and able to speak in complete sentences Neuro: General: patient oriented x3, moves all extremities and CN's II-XI intact bilaterally Cranial nerves: Yes Equal, round and reactive pupils present Cognition (Neuro): normal cognition Extrem: General: Yes normal to inspection, Yes full ROM and Yes capillary refill normal Psych: Appearance: grossly normal Mental Status: mental status grossly normal Affect: normal affect Attitude: cooperative Thought process: N ormal thought process present Thought content: Normal thought content present Insight: Good insight present (Psych) Course Course Course Narrative: This is an RME: Additional HPI, ROS, PE not included below will be deferred to primary provider. RME assessment and note performed by: Zahraa Busby PA-C This a [id number], hx of HTN and diabetes, who presents to the ER with a complaint of back pain x 2 months and intermittent left arm pain and chest pain. Plan: Labs, EKG, CXR, further ER eval needed Medications Administered Discontinued Medications Generic Name Dose Route Start Last Admin Trade Name Camilo PRN Reason Stop Dose Admin Ketorolac Tromethamine 15 mg 04/05/25 12:56 04/05/25 13:06 Ketorolac Tromethamine 15 Mg/Ml Vial IM 04/05/25 12:57 15 mg ONCE ONE Administration Methylprednisolone Sodium Succinate 60 mg 04/05/25 12:56 04/05/25 13:07 Methylprednisolone Sod Succ 125 Mg/2 Ml Vial IM 04/05/25 12:57 60 mg ONCE ONE Administration Medical Decision Making Medical Decision Making MDM Narrative: Patient is a 49 year old male with a history of HTN and DM presenting to the emergency department today with low back pain that radiates into his leg and left sided neck pain that radiates into his shoulder. Patient's physical exam was as noted in the physical exam portion of this note. Patient's blood work ordered by the provider in triage was unremarkable. Patient's EKG ordered by the provider in triage showed no obvious evidence of arrhythmia, ischemia, or infarct. Patient's chest x-ray ordered by the provider in triage showed no acute process. Patient's clinical presentation is most consistent with lumbar radiculopathy vs. sciatica and left sided cervical radiculopathy. I explained my physical exam findings as well as all test results to the patient. I answered all questions asked by the patient. I stressed the importance of the patient taking his medication as directed (either prescribed or as the over the counter packaging recommends). I stressed the importance of the patient following up with his primary care provider and a sales account specialist. I stressed the importance of the patient returning to the emergency department immediately if his symptoms were to worsen or if he were to develop any dizziness, shortness of breath, difficulty breathing, chest pain, blurry vision, loss of vision, nausea, vomiting, abdominal pain, fever, chills, back pain, or any other complaints. Patient verbalized agreement and understanding with this treatment plan and discharge. Differential Diagnosis Differential Diagnoses: The differential diagnosis associated with the presentation includes Low back pain Cervical radiculopathy Lumbar radiculopathy Sciatica Admission/Observation Consideration of admission/observation: Escalation of care including admission/observation considered Patient would have been admitted to the hospital had his work up had any findings where hospital admission was appropriate and his clinical presentation warranted hospital admission. Lab Data [facility] Lab Attestation statement: I reviewed the patient's lab results. My interpretation of these results are in the [facility] Rationale portion of this note. 04/05/25 11:46 04/05/25 11:46 Labs: Lab Results 04/05/25 Range/Units 11:46 WBC 8.8 (4.8-10.8) X10*3/uL RBC 6.16 H (4.60-5.80) X10*6/uL Hgb 15.6 (14.0-18.0) g/dl Hct 48.3 (42.0-52.0) % MCV 78.4 L (80.0-98.0) fL MCH 25.3 L (27.0-33.0) pg MCHC 32.3 (31.0-36.0) g/dl RDW 13.3 (11.0-16.0) % Plt Count 331 (160-400) X10*3/uL MPV 10.8 (9.4-12.4) fL Immature Gran % (Auto) 0.7 H (0.0-0.4) % Neut % (Auto) 68.0 (45-73) % Lymph % (Auto) 22.1 (20-40) % [place] % (Auto) 6.1 (2-11) % Eos % (Auto) 2.1 (0-4) % Baso % (Auto) 1.0 (0-2) % Lymph # (Auto) 2.0 (1.2-4.9) X10*3/uL [place] # (Auto) 0.5 (0.1-1.2) X10*3/uL Eos # (Auto) 0.2 (0.0-0.4) X10*3/uL Baso # (Auto) 0.1 (0.0-0.2) X10*3/uL Abs Immat Gran (auto) 0.06 H (0.00-0.03) X10*3/uL Absolute Neuts (auto) 6.0 (2.0-8.3) x10*3/uL Absolute Nucleated RBC 0.000 (0.0-0.012) X10*3/uL Nucleated RBC % (auto) 0.0 (0.0-0.2) /100WBC Sodium 136 (135-145) mmol/L Potassium 4.3 (3.3-5.1) mmol/L Chloride 101 (96-108) mmol/L Carbon Dioxide 27 (22-29) mmol/L Anion Gap 12 (12-20) BUN 10 (9-16) mg/dL Creatinine 0.96 (0.5-1.4) mg/dL Estim Creat Clear Calc 114.2 Estimated GFR > 60 Random Glucose 252 H (60-115) mg/dL Calcium 9.3 D (8.4-10.2) mg/dL Magnesium 2.0 (1.6-2.6) mg/dL Total Bilirubin 0.2 (0.0-1.0) mg/dL Direct Bilirubin < 0.2 (0.0-0.5) mg/dL AST 20 (5-37) U/L ALT 30 (0-40) U/L Alkaline Phosphatase 74 (39-117) U/L Troponin I High Sens < 2.7 (<3.5-35.0) ng/L Total Protein 8.0 (6.5-8.0) g/dL Albumin 4.4 (3.5-5.0) g/dL Urine Color Yellow Urine Appearance Clear Urine pH 7.0 (5.0-9.0) Ur Specific [place] >= 1.030 H (1.005-1.025) Urine Protein Trace (Neg-Trace) mg/dL Urine Glucose (UA) >=1000 H (Negative) mg/dL Urine Ketones Negative (Negative) mg/dL Urine Blood Negative (Negative) Urine Nitrite Negative (Negative) Ur Leukocyte Esterase Negative (Negative) Urine RBC 0-2 (0-2) /HPF Urine WBC 0-5 (0-5) /HPF Ur Squamous Epith Cells 0-2 (0-2) /HPF Urine Bacteria None Seen (None Seen) Hyaline Casts 0-2 (0-2) /LPF Influenza Type A (PCR) NEGATIVE (Negative) Influenza Type B (PCR) NEGATIVE (Negative) RSV RNA Qual (PCR) NEGATIVE (Negative) SARS-CoV-2 RNA (RT-PCR) NEGATIVE (Negative) Independent Interpretation I performed an independent interpretation of an: EKG and Plain X-Ray Interpretation: My interpretation is in agreement with the radiologist's impression of these imaging studies as written below. EXAMINATION: XR CHEST 2 VIEWS HISTORY: CP COMPARISON: Comparison is made with the prior examination dated 01/24/2023. FINDINGS: PA and lateral views of the chest are submitted. The lungs are expanded and clear. There is no pleural effusion, pneumothorax, or pulmonary vascular congestion. The heart is normal in size. There is degenerative disc disease of the spine. XR/XR chest 2V IMPRESSION: No acute cardiopulmonary abnormality. Electronically signed by: Williams Nova MD 04/05/2025 12:03 PM [facility] Dictated By: Williams Nova MD Signed By: Electronically signed by Williams Nova MD 04/05/25 1203 I independently interpreted this EKG and am in agreement with the below findings: Vent. Rate: 80 BPM Atrial Rate: 80 BPM P-R Int: 124 ms QRS Dur: 114 ms QT Int: 398 ms P-R-T Axes: 38 31 27 degrees QTcB Int: 459 ms Normal sinus rhythm Right bundle branch block Referred By: Zahraa Busby Electronically Signed By: ARON COOPER MD Dictated By: Aron Cooper MD Signed By: Electronically signed by Aron Cooper MD 04/05/25 1528 Radiology Impression Discussion of test interpretation with radiology: I have reviewed the radiologist's reading. Prescription Management I considered prescription management with: Pain Medication (patient prescribed pain medication) Discharge Plan Discharge Clinical Impression: Lumbar radiculopathy, Sciatica, Cervical radiculopathy Patient Disposition: Home, Self-Care Instructions: Sciatica (ED), Lumbar Radiculopathy (ED), Cervical Radiculopathy (ED), Lower Back Exercises (ED) Additional Instructions: Your work up today was reassuring there is no EMERGENT cause for your symptoms. You should follow up with a sales account specialist. Please be aware the corticosteroids (prednisone) can make sleeping difficult as well as make you hungry. Take them earlier in the day if possible. They can also impact your blood sugar (making them higher) - be sure to adjust your insulin dosing as directed by your PCP. IF you are prescribed home medications and/or you are taking over the counter medications at home - it is very important you continue to do so as prescribed / directed unless told otherwise by a healthcare provider. Follow up with your primary care provider. Do your best to stay well hydrated and rest. Return to the emergency department immediately if your symptoms worsen or if you develop any numbness, tingling, dizziness, shortness of breath, difficulty breathing, chest pain, blurry vision, loss of vision, nausea, vomiting, abdominal pain, fever, chills, back pain, or any other complaints. L If you do not have a primary care provider - call any of the below numbers to establish and follow up with a primary care provider. [facility] [place] [phone] [place] [address], [address] [facility] [place] [facility] [place]) [phone] [place] [address], [address] [facility], [address] [facility] [place] [place]) [phone] [place] [address], [address] [facility], [address] [facility] [place]) [phone] [place] [address] [address] [facility], [address] [facility] [place] [facility] [phone] [address] [facility], [address] Please see the information below about our Patient Portal. If you are not yet enrolled in the [facility] Patient Portal, you will receive an enrollment email invitation following your visit to any [facility] care setting. You may also self-enroll in the Patient Portal by visiting our website: [email or web address] The following information is required to access the Patient Portal: - Your [facility] [place] Number - Your personal home email address (must match what is in your electronic medical record, Registration staff can assist with this) - Name - Date of Capabilities of the Patient Portal: - Message some providers - View upcoming appointments - Access your health summary, medical history, and visit history - View current conditions and allergies - View procedure and lab results - View your medications, including guidelines, side effects, and precautions - Complete pre-appointment questionnaires requested by your provider - Ready summary reports of your office visits and procedures To access the Patient Portal Mobile [employer], follow these directions: - Search [employer] in the [employer] Store or [employer] Store - Download the [employer] - Search for [facility] - Enter your login/password Prescriptions: New cyclobenzaprine 5 mg tablet 5 mg PO TID PRN (Reason: spasm) 7 Days Qty: 21 0RF prednisone 20 mg tablet 40 mg PO DAILY 5 Days Qty: 10 0RF naproxen 500 mg tablet 500 mg PO BID 7 Days Qty: 14 0RF No Action cyclobenzaprine 10 mg tablet 10 mg PO TID PRN (Reason: muscle spasm) Qty: 8 0RF lidocaine [Lidoderm] 5 % adhesive patch,medicated 1 patch topical DAILY Qty: 15 0RF Rx Instructions: leave on most painful area for up to 12 hrs cephalexin 500 mg tablet 500 mg PO QID 7 Days Qty: 28 0RF Referrals: [facility] [Provider Group, Neurosurgery] Referral Note: Call to establish and follow up with the spine center. Jordy Jo MD [Primary Care Provider, Medical] Interventions: ED Discharge Assessment Last Done: 04/05/25 13:44 Discharge Date/Time: 04/05/25 13:44 Print Language: Yi
--- NOTE | 2025-04-05 11:35 | ECG_ITS ---
Test Reason : cp Blood Pressure : */* mmHG Vent. Rate : 80 BPM Atrial Rate : 80 BPM P-R Int : 124 ms QRS Dur : 114 ms QT Int : 398 ms P-R-T Axes : 38 31 27 degrees QTcB Int : 459 ms Normal sinus rhythm Right bundle branch block Abnormal ECG When compared with ECG of 24-Jan-2023 08:19, Inverted T waves have replaced nonspecific T wave abnormality in Anterior leads Referred By: Zahraa Busby Electronically Signed By: ALEX COOPER MD
[2025-04-05 11:56] LABS: MANUAL DIFF FLAG NO
[2025-04-05 11:58] LABS: Hematocrit 48.3 % (42.0-52.0); Hemoglobin 15.6 g/dl (14.0-18.0); Imm Gran Abs Auto 0.06 X10*3/uL (0.00-0.03); Imm Gran Pct Auto 0.7 % (0.0-0.4); Lymphocytes Absolute Auto 2.0 X10*3/uL (1.2-4.9); Mean Corpuscular HGB Conc 32.3 g/dl (31.0-36.0); Mean Corpuscular Hemoglobin 25.3 pg (27.0-33.0); Mean Corpuscular Volume 78.4 fL (80.0-98.0); NRBC Abs Auto 0.000 X10*3/uL (0.0-0.012); NRBC Pct Auto 0.0 /100WBC (0.0-0.2); Platelet Count 331 X10*3/uL (160-400); Red Blood Count 6.16 X10*6/uL (4.60-5.80); White Blood Count 8.8 X10*3/uL (4.8-10.8)
[2025-04-05 12:02] LABS: Appearance Urine Clear; Glucose Urine UA >=1000 mg/dL (Negative); PH 7.0 (5.0-9.0); Specific Gravity - Urine >= 1.030 (1.005-1.025); UMIC TRIGGER UACC YES
[2025-04-05 12:13] LABS: Alanine Aminotransferase 30 U/L (0-40); Albumin Level 4.4 g/dL (3.5-5.0); Alkaline Phosphatase 74 U/L (39-117); Anion Gap 12 (12-20); Aspartate Amino Transferase 20 U/L (5-37); Blood Urea Nitrogen 10 mg/dL (9-16); Calcium 9.3 mg/dL (8.4-10.2); Carbon Dioxide 27 mmol/L (22-29); Chloride 101 mmol/L (96-108); Creatinine Clr Calc Pharmacy 114.2; Estimated Glomerular Filt Rate > 60; Magnesium 2.0 mg/dL (1.6-2.6); Potassium 4.3 mmol/L (3.3-5.1); Sodium 136 mmol/L (135-145); Total Protein 8.0 g/dL (6.5-8.0)
[2025-04-05 12:21] LABS: Troponin-I High Sensitivity < 2.7 ng/L (<3.5-35.0)
[2025-04-05 12:36] LABS: Resp Syncy Virus RNA Qual PCR NEGATIVE (Negative); SARS COV2 PCR INHOUSE NEGATIVE (Negative)
[2025-04-05 13:44] VITALS: BP 166/108; PULSE 98; RESP 16; TEMP 36.6; O2SAT 99
== END 2025-04-05 13:44 | disposition home or self-care (01) ==
PROVIDERS: Physician Assistant Medical; Emergency Provider Emergency Medicine; PCP Internal Medicine
DX: M54.16 Radiculopathy, lumbar region (principal); M54.12 Radiculopathy, cervical region; R07.89 Other chest pain; I45.10 Unspecified right bundle-branch block; Z03.818 Encounter for observation for suspected exposure to other biological agents ruled out; Z79.899 Other long term (current) drug therapy
CPT/HCPCS: 71046; 80048; 80076; 81001; 81003; 83735; 84484; 85025; 87637; 93005; 96372; 99284; J1885; J2919

== ENCOUNTER → 2025-04-05 11:35 | Outpatient (BNV) | payer MEDICAID, SELFPAY | PROVIDERS: Emergency Provider Emergency Medicine; PCP Internal Medicine; Visit Provider Internal Medicine Cardiovascular Disease | DX: I45.10 Unspecified right bundle-branch block (principal) | CPT/HCPCS: 93010 ==

== ENCOUNTER → 2025-04-05 11:36 | Outpatient (BNV) | payer MEDICAID, SELFPAY | PROVIDERS: PCP Internal Medicine; Visit Provider Radiology Diagnostic Radiology | DX: R07.9 Chest pain, unspecified (principal) | CPT/HCPCS: 71046 ==